=== PATIENT | male | born 1990 | race Caucasian/White ===

== ENCOUNTER 2019-11-14 16:17 | Emergency (ER) | payer SELFPAY ==
[~2019-11-14] VITALS: Ht 170.2 cm; Wt 68.0 kg
[2019-11-14 16:25] VITALS: BP 111/67
--- NOTE | 2019-11-14 16:35 | NUR ---
JOMAR THRASHER EVALUATING PT AT BEDSIDE
[2019-11-14] MEDS ORDERED: KETOROLAC 30 MG/ML VIAL IM ONE (16:40)
--- NOTE | 2019-11-14 16:40 | NUR ---
28/M C/O CONSTANT CA SINCE THURS 11/11/19. CA IS BANDLIKE AROUND THE HEAD. N/V X 1 IN AM BUT DENIES AT THIS TIME. DENIES INJURY. CA WORSE WHEN COUGHING, SNEEZING, EATING. PT APPEARS IN NAD. VSS; BED LOCKED AND LOW; BEDRAILS UP X1. HX- DENIES
[2019-11-14 17:29] VITALS: BP 111/67
== END 2019-11-14 17:29 | disposition home or self-care (01) ==
LOC: MED 16:17
DX: G44.209 Tension-type headache, unspecified, not intractable (principal); F17.210 Nicotine dependence, cigarettes, uncomplicated
CPT/HCPCS: 96372; 99283; J1885

== ENCOUNTER 2020-02-17 09:30 | Emergency (ER) | payer SELFPAY ==
[~2020-02-17] VITALS: Ht 167.6 cm; Wt 68.0 kg
[2020-02-17 09:32] VITALS: BP 123/87
--- NOTE | 2020-02-17 09:41 | NUR ---
Patient ambulated to bed 6. RN evaluating patient at bedside.
--- NOTE | 2020-02-17 09:45 | NUR ---
PT C/O GENERALIZED WEAKNESS X 2 DAYS, N/V WITH A SMALL AMOUNT OF BLOOD 2 DAYS AGO. PT STATES HE HAS NOT HAD ANYTHING TO EAT SINCE YESTERDAY APPROX 930PM AND HE DID NOT SLEEP LAST NIGHT DUR TO THE SX. DENIES COUGH, FEVER, SOB, CP, DIARRHEA, RECENT TRAVEL, OR SICK CONTACTS. PATIENT STATES PAIN OF 6/10 AT THIS TIME; VSS; PATIENT POSITIONED FOR COMFORT; HOB ELEVATED; BEDRAILS UP X1; BED DOWN. ER MD MADE AWARE OF PT STATUS. PT REPORTS HE JUST STARTED SMOKING CIGARETTES, DENIES MARIJUANA OR DRUG USES.
[2020-02-17] MEDS ORDERED: ONDANSETRON 4 MG/2 ML VIAL IVP ONE (10:20)
[2020-02-17] MEDS ORDERED: FAMOTIDINE 20 MG/2 ML VIAL IVP ONE (10:20)
[2020-02-17] MEDS ORDERED: ALUMINUM HYD/MAG/SIMETHICONE 30 ML UDC PO ONE (10:20)
[2020-02-17] MEDS ORDERED: NACL 0.9% 1,000 ML IV ONE ×2 (10:20→11:15)
[2020-02-17 10:37] LABS: BASOPHILS % (AUTO) 0.3 % (0.0-2.0); EOSINOPHILS # (AUTO) 0.1 K/uL (0-0.4); EOSINOPHILS % (AUTO) 1.5 % (0.0-4.0); HEMATOCRIT 40.7 % (36-52); HEMOGLOBIN 13.8 g/dL (12.0-18.0); LYMPHOCYTES # (AUTO) 1.3 K/uL (2.0-11.5); LYMPHOCYTES % (AUTO) 16.5 % (20.5-51.1); MEAN CORPUSCULAR HEMOGLOBIN 32 pg (27-31); MEAN CORPUSCULAR HGB CONC 34 g/dL (33-37); MEAN CORPUSCULAR VOLUME 93.1 fL (80-94); MONOCYTES # (AUTO) 0.6 K/uL (0.8-1.0); MONOCYTES % (AUTO) 7.9 % (1.7-9.3); NEUTROPHILS # (AUTO) 5.8 K/uL (1.8-7.7); NEUTROPHILS % (AUTO) 73.8 % (42.2-75.2); PLATELET COUNT (AUTO) 124 K/uL (140-450); RED BLOOD CELL COUNT(AUTO) 4.38 MIL/uL (4.20-6.10); RED CELL DISTRIBUTION WIDTH 14.6 % (11.6-13.7); WHITE BLOOD COUNT (AUTO) 7.9 K/uL (4.8-10.8)
[2020-02-17 11:01] LABS: ALBUMIN 3.3 g/dL (3.4-5.0); ANION GAP 12.4 (8-16); CARBON DIOXIDE 27.7 mmol/L (21-32); CREATININE 0.9 mg/dL (0.6-1.3); POTASSIUM 3.1 mmol/L (3.5-5.1); TOTAL BILIRUBIN 0.6 mg/dL (0.0-1.0)
[2020-02-17] MEDS ORDERED: PROCHLORPERAZINE 10 MG/2 ML VIAL IVP ONE (11:15)
--- NOTE | 2020-02-17 11:24 | NUR ---
COMPAZINE IVP ADMINISTERED ALONG WITH ANOTHER NACL BOLUS STARTED
--- NOTE | 2020-02-17 12:25 | NUR ---
pt is resting in the bed. VSS.
[2020-02-17 13:10] VITALS: BP 125/85
--- NOTE | 2020-02-17 13:10 | NUR ---
Patient discharged with v/s stable. Written and verbal after care instructions given and explained. Patient alert, oriented and verbalized understanding of instructions. Ambulatory with steady gait. All questions addressed prior to discharge. ID band removed. Patient advised to follow up with PMD. Rx of Zofran and Pepcid given. Patient educated on indication of medication including possible reaction and side effects. Opportunity to ask questions provided and answered.
== END 2020-02-17 13:10 | disposition home or self-care (01) ==
LOC: MED 09:30
DX: E86.0 Dehydration (principal); K86.1 Other chronic pancreatitis; R74.8 Abnormal levels of other serum enzymes; R11.2 Nausea with vomiting, unspecified; F17.210 Nicotine dependence, cigarettes, uncomplicated
CPT/HCPCS: 36415; 80053; 83690; 85025; 96361; 96374; 96375; 99284; J0780; J2405; J3490; J7030

== ENCOUNTER 2020-02-19 23:38 | Inpatient (IN) | payer OTHER, SELFPAY ==
[~2020-02-19] VITALS: Ht 170.2 cm; Wt 71.2 kg
[2020-02-19 23:46] VITALS: BP 108/57
--- NOTE | 2020-02-19 23:50 | NUR ---
PT VOMITTED 100CC OF BRIGHT RED BLOOD. PT VSS.
--- NOTE | 2020-02-19 23:51 | NUR ---
PT AMBULATED TO BED 6 WITH STEADY GAIT.
--- NOTE | 2020-02-19 23:55 | NUR ---
COVERING PRIMARY RN FOR LUNCH RELIEF -- RECEIVED A 29/M FROM TRIAGE WITH C/O VOMITTING BLOOD. PT REPORTS BROWN COLORED VOMIT THIS MORNING AND RECENTLY BEGAN VOMITING BRIGHT RED BLOOD OF 1 HR AGO. PT DENIES ANY PAIN. REPORTS HX OF GASTRIC ULCER. IN BED FOR MSE.
--- NOTE | 2020-02-20 00:14 | NUR ---
REPORT TO PRIMARY RN NATACHA. ALL CARE TRASNFERRED.
--- NOTE | 2020-02-20 00:31 | NUR ---
DR. KOWALSKI AT BEDSIDE EVALUTATING PT.
[2020-02-20] MEDS ORDERED: NACL 0.9% 1,000 ML IV ONE ×2 (00:35→04:45)
[2020-02-20] MEDS ORDERED: ONDANSETRON 4 MG/2 ML VIAL IVP ONE (00:35)
[2020-02-20] MEDS ORDERED: PANTOPRAZOLE 40 MG INJ VIAL IVP ONE (00:35)
--- NOTE | 2020-02-20 00:42 | NUR ---
PT HAD ONE EPISODE OF BLOOD VOMITTUS.
--- NOTE | 2020-02-20 00:45 | NUR ---
PT MEDICATED WITH ZOFRAN IVP FOR EPISODE OF VOMITTING.
--- NOTE | 2020-02-20 00:50 | NUR ---
BLOOD DRAWN AND TAKEN TO LAB.
[2020-02-20 00:59] LABS: BASOPHILS % (AUTO) 0.4 % (0.0-2.0); EOSINOPHILS # (AUTO) 0.3 K/uL (0-0.4); EOSINOPHILS % (AUTO) 4.5 % (0.0-4.0); HEMATOCRIT 32.5 % (36-52); LYMPHOCYTES # (AUTO) 1.4 K/uL (2.0-11.5); LYMPHOCYTES % (AUTO) 23.9 % (20.5-51.1); MEAN CORPUSCULAR HEMOGLOBIN 32 pg (27-31); MEAN CORPUSCULAR HGB CONC 34 g/dL (33-37); MEAN CORPUSCULAR VOLUME 93.6 fL (80-94); MONOCYTES # (AUTO) 0.8 K/uL (0.8-1.0); MONOCYTES % (AUTO) 13.9 % (1.7-9.3); NEUTROPHILS # (AUTO) 3.5 K/uL (1.8-7.7); NEUTROPHILS % (AUTO) 57.3 % (42.2-75.2); PLATELET COUNT (AUTO) 143 K/uL (140-450); RED BLOOD CELL COUNT(AUTO) 3.48 MIL/uL (4.20-6.10); RED CELL DISTRIBUTION WIDTH 14.8 % (11.6-13.7)
[2020-02-20 01:16] LABS: ALBUMIN 2.8 g/dL (3.4-5.0); ANION GAP 7.9 (8-16); CARBON DIOXIDE 32.6 mmol/L (21-32); CREATININE 0.8 mg/dL (0.6-1.3); POTASSIUM 3.5 mmol/L (3.5-5.1); TOTAL BILIRUBIN 0.5 mg/dL (0.0-1.0)
--- NOTE | 2020-02-20 01:28 | NUR ---
PT REPORTS DECREASED FEELINGS OF NAUSEA. WILL CONTINUE TO MONITOR.
[2020-02-20] MEDS ORDERED: MORPHINE SULFATE 2 MG/ML SYR IVP PRN (02:00)
[2020-02-20] MEDS ORDERED: LORazepam 2 MG/ML VIAL IM/IVP PRN (02:00)
[2020-02-20] MEDS ORDERED: ONDANSETRON 4 MG/2 ML VIAL IM/IVP PRN (02:00)
[2020-02-20] MEDS ORDERED: ZOLPIDEM 5 MG TAB PO PRN (02:00)
[2020-02-20] MEDS ORDERED: ACETAMINOPHEN 325 MG TAB PO PRN (02:00)
[2020-02-20] MEDS ORDERED: HYDROcodone/APAP 5/325 MG 1 TAB TAB PO PRN (02:00)
[2020-02-20] MEDS ORDERED: DOCUSATE SODIUM 100 MG GELCAP PO PRN (02:00)
[2020-02-20 02:20] VITALS: BP 102/67
--- NOTE | 2020-02-20 02:20 | NUR ---
Patient will be admitted to care of DR. AKBAR. Admited to [facility]. Will go to room 119B. Belongings list completed. Report to REMY DANGELO. TRANSFER OF CARE AT THIS TIME.
--- NOTE | 2020-02-20 02:20 | NUR ---
PATIENT RECEIVED FROM ER IN STABLE CONDITION VIA [facility] FOR CONTINUITY OF CARE. AAOX4. RESPIRATIONS EVEN, UNLABORED. SKIN WARM, DRY. SKIN ASSESSMENT COMPLETED. IV SITE NOTED TO RIGHT AC 20G, PATENT/INTACT. NO C/O PAIN AT THIS TIME. BOWEL SOUNDS ACTIVE X4 QUADRANTS. NO TENDERNESS NOTED AT THIS TIME. PATIENT IS CONTINENT OF B/B. AMBULATES WELL. PATIENT ORIENTED TO ROOM/STAFF AND CALL LIGHT. MRSA SCREEN COMPLETED. CALL LIGHT WITHIN REACH. WILL CONTINUE TO MONITOR.
[2020-02-20 02:29] LABS: CHOL/HDL RATIO 2.5 (1-4.5); FREE T4 (FREE THYROXINE) 1.03 ng/dL (0.76-1.46); MAGNESIUM 1.9 mg/dL (1.8-2.4); PHOSPHORUS 4.3 mg/dL (2.5-4.9); THYROID STIMULATING HORMONE 0.97 uIU/mL (0.34-3.74)
[2020-02-20] MEDS: NACL 0.9% 1,000 ML IV SCH ×3 (02:47→21:57)
[2020-02-20 04:00] VITALS: BP 84/45
--- NOTE | 2020-02-20 04:41 | NUR ---
PATIENT ASLEEP. NO C/O PAIN. CALL LIGHT WITHIN REACH. WILL CONTINUE TO MONITOR.
--- NOTE | 2020-02-20 05:10 | NUR ---
NOTIFIED DR. JOHNSON REGARDING LOW BP 84/45 WITH NEW ORDER OF 1L NS BOLUS. RECHECKED BLOOD PRESSURE AT 90/48. MD AWARE. PATIENT IS ASYMPTOMATIC. NO DIZZINESS NOTED. CALL LIGHT WITHIN REACH. WILL CONTINUE TO MONITOR.
--- NOTE | 2020-02-20 06:19 | NUR ---
PATIENT IN STABLE CONDITION. NO C/O PAIN. NO S/S ACUTE DISTRESS. CALL LIGHT WITHIN REACH. WILL CONTINUE TO MONITOR.
--- NOTE | 2020-02-20 06:48 | NUR ---
PATIENT HAS BEEN SCREENED AND CATEGORIZED HIGH NUTRITION RISK. PATIENT WILL BE SEEN WITHIN 1-2 DAYS OF ADMISSION. 02/21/20-02/22/20 GIGI HEARN MS, RDN
[2020-02-20 07:00] LABS: BASOPHILS % (AUTO) 0.6 % (0.0-2.0); EOSINOPHILS # (AUTO) 0.2 K/uL (0-0.4); EOSINOPHILS % (AUTO) 4.1 % (0.0-4.0); HEMATOCRIT 26.3 % (36-52); HEMOGLOBIN 8.8 g/dL (12.0-18.0); LYMPHOCYTES # (AUTO) 1.7 K/uL (2.0-11.5); LYMPHOCYTES % (AUTO) 33.7 % (20.5-51.1); MEAN CORPUSCULAR HEMOGLOBIN 32 pg (27-31); MEAN CORPUSCULAR HGB CONC 34 g/dL (33-37); MEAN CORPUSCULAR VOLUME 95.7 fL (80-94); MONOCYTES # (AUTO) 0.5 K/uL (0.8-1.0); MONOCYTES % (AUTO) 9.9 % (1.7-9.3); NEUTROPHILS # (AUTO) 2.6 K/uL (1.8-7.7); NEUTROPHILS % (AUTO) 51.7 % (42.2-75.2); PLATELET COUNT (AUTO) 119 K/uL (140-450); RED BLOOD CELL COUNT(AUTO) 2.75 MIL/uL (4.20-6.10); RED CELL DISTRIBUTION WIDTH 14.8 % (11.6-13.7)
[2020-02-20 07:17] LABS: ANION GAP 8.7 (8-16); CARBON DIOXIDE 30.7 mmol/L (21-32); CREATININE 0.8 mg/dL (0.6-1.3); POTASSIUM 3.4 mmol/L (3.5-5.1)
--- NOTE | 2020-02-20 07:28 | NUR ---
PATIENT RECEIVED FROM [facility] FOR[facility]ER RN FOR CONTINUITY OF CARE. PT IS AAOX4. RESPIRATIONS EVEN, UNLABORED. SKIN WARM, DRY. SKIN ASSESSMENT COMPLETED. IV SITE NOTED TO RIGHT AC 20G, PATENT/INTACT. NO C/O PAIN AT THIS TIME. BOWEL SOUNDS ACTIVE X4 QUADRANTS. NO TENDERNESS NOTED AT THIS TIME. PATIENT IS CONTINENT OF B/B. AMBULATES WELL. PATIENT ORIENTED TO ROOM/STAFF AND CALL LIGHT. CALL LIGHT WITHIN REACH. WILL MONITOR PT CLOSELY THROUGHOUT THE SHIFT.
[2020-02-20 07:51] LABS: APPEARANCE,URINE CLEAR (CLEAR); BILIRUBIN,URINE NEGATIVE (NEGATIVE); BLOOD, URINE NEGATIVE (NEGATIVE); COLOR,URINE YELLOW (YELLOW); LEUKOCYTE ESTERASE ,URINE NEGATIVE (NEGATIVE); NITRITE, URINE NEGATIVE (NEGATIVE); UGLUCOSE NEGATIVE (NEGATIVE)
[2020-02-20 08:00] VITALS: BP 98/54
[2020-02-20 08:07] LABS: BARBITURATE, URINE NEGATIVE ng/ml (NEG <=200); BENZODIAZEPINE, URINE NEGATIVE ng/mL (NEG <=200); CANNABINOID, URINE NEGATIVE ng/mL (NEG <=50); COCAINE, URINE NEGATIVE ng/mL (NEG <=300); OPIATE, URINE NEGATIVE ng/mL (NEG <=2000); PHENCYCLIDINE SCREEN,URINE NEGATIVE ng/mL (NEG <=25)
[2020-02-20] MEDS ORDERED: PANTOPRAZOLE 40 MG INJ VIAL IVP SCH (09:00)
[2020-02-20] MEDS: PANTOPRAZOLE 40 MG INJ VIAL IVP SCH ×2 (09:12→20:26)
[2020-02-20] MEDS ORDERED: POTASSIUM CHLORIDE 10 MEQ TABER PO SCH (10:15)
--- NOTE | 2020-02-20 10:52 | NUR ---
ADMINISTERED KDUR TO PT DUE TO K BEING 3.4. PT TOLERATED WELL ALL NEEDS MET.
[2020-02-20 12:00] VITALS: BP 101/56
--- NOTE | 2020-02-20 13:54 | NUR ---
PT ASLEEP. ALL NEEDS MET.
--- NOTE | 2020-02-20 15:20 | NUR ---
PT RESTING IN BED. NO PAIN REPORTED. WILL CONTINUE TO ROUND ON PT.
[2020-02-20 16:00] VITALS: BP 106/61
[2020-02-20] MEDS: METOCLOPRAMIDE 10 MG TAB PO SCH (17:13)
--- NOTE | 2020-02-20 19:53 | NUR ---
RECEIVED REPORT FROM DAY SHIFT NURSE. PT IN BED RESTING. AWAKE, ALERT, ORIENTED. PT ABLE TO MAKE NEEDS KNOWN. RESPIRATIONS EVEN AND UNLABORED TO RA. SKIN IS WARM AND DRY. ABDOMEN IS SOFT AND NON-TENDER. DENIES ANY PAIN OR DISCOMFORT AT THIS TIME. IV ACCESS ON R AC G 20 PATENT AND INTACT. IVF INFUSING WELL. PLAN OF CARE DISCUSSED. PT VERBALIZED UNDERSTANDING. NO REQUESTS MADE AT THIS TIME. CALL LIGHT WITHIN REACH. WILL CONTINUE TO MONITOR.
--- NOTE | 2020-02-20 19:53 | NUR ---
ENDORSED PT TO NIGHTSHIFT RN FOR CONTINUITY OF CARE. PT IN STABLE CONDITION AT THIS TIME.
[2020-02-20 20:00] VITALS: BP 94/57
--- NOTE | 2020-02-20 20:36 | NUR ---
VITAL SIGNS TAKEN. SCHEDULED MEDS GIVEN ORDERED. OCCULT BLOOD SAMPLE OBTAINED. PT DENIES ANY PAIN OR DISCOMFORT AT THIS TIME. PT KEPT SAFE AND COMFORTABLE. WILL CONTINUE TO MONITOR.
--- NOTE | 2020-02-20 22:20 | NUR ---
PT ASLEEP. NO S/SX OF DISR=T
--- NOTE | 2020-02-20 22:20 | NUR ---
PT ASLEEP. NO S/SX OF DISTRESS NOTED. PT KEPT COMFORTABLE. CALL LIGHT WITHIN REACH. WILL CONTINUE TO MONITOR.
[2020-02-21] VITALS: BP 93/45
--- NOTE | 2020-02-21 00:15 | NUR ---
VITAL SIGNS WITHIN NORMAL LIMITS. NO COMPLAINS OF THIS TIME. REMINDED ABOUT NPO STATUS. PATIENT VERBALIZED UNDERSTANDING. PT WENT BACK TO SLEEP. SAFETY MEASURES IN PLACE. WILL CONTINUE TO MONITOR.
[2020-02-21] MEDS: DEXT 5% / NACL 0.9% 500 ML IV SCH ×3 (01:51→12:30)
--- NOTE | 2020-02-21 01:51 | NUR ---
IVF CHANGED TO D5NS 500ML TO RUN AT 100 MLS/HRS ORDERED. WILL CONTINUE TO MONITOR.
[2020-02-21 04:00] VITALS: BP 94/52
--- NOTE | 2020-02-21 04:10 | NUR ---
PT RESTING IN BED. VS WITHIN NORMAL LIMITS. NO COMPLAINS MADE AT THIS TIME. NO REQUESTS MADE WELL. KEPT ON NPO STATUS. PT KEPT COMFORTABLE. CALL LIGHT WITHIN REACH. WILL CONTINUE TO MONITOR.
[2020-02-21] MEDS: METOCLOPRAMIDE 10 MG TAB PO SCH ×2 (06:32→12:32)
--- NOTE | 2020-02-21 07:17 | NUR ---
GAVE REPORT TO DAY SHIFT NURSE FOR CONTINUITY OF CARE. PT IN STABLE CONDITION.
--- NOTE | 2020-02-21 07:18 | NUR ---
RECEIVED REPORT FROM APPLICATIONS INTERN NURSE, FOR CONTINUITY OF CARE. PT IS SITTING UP IN BED, AAOX4. RESPIRATIONS ARE EVEN AND UNLABORED, BREATHING TO RA. RAC 20G IV, IS PATENT AND INTACT, FLUIDS RUNNING PER ORDERS. REVIEWED PLAN OF CARE WITH PATIENT. TELE MONITOR ATTACHED. SAFETY MEASURES IN PLACE; CALL LIGHT WITHIN REACH, BED IN LOW POSITION. WILL CONTINUE TO MONITOR.
[2020-02-21 07:22] LABS: EOSINOPHILS # (AUTO) 0.2 K/uL (0-0.4); EOSINOPHILS % (AUTO) 5.9 % (0.0-4.0); HEMATOCRIT 27.5 % (36-52); HEMOGLOBIN 9.3 g/dL (12.0-18.0); LYMPHOCYTES # (AUTO) 1.3 K/uL (2.0-11.5); LYMPHOCYTES % (AUTO) 32.2 % (20.5-51.1); MEAN CORPUSCULAR HEMOGLOBIN 33 pg (27-31); MEAN CORPUSCULAR HGB CONC 34 g/dL (33-37); MEAN CORPUSCULAR VOLUME 96.7 fL (80-94); MONOCYTES # (AUTO) 0.4 K/uL (0.8-1.0); MONOCYTES % (AUTO) 10.7 % (1.7-9.3); NEUTROPHILS % (AUTO) 50.2 % (42.2-75.2); PLATELET COUNT (AUTO) 142 K/uL (140-450); RED BLOOD CELL COUNT(AUTO) 2.85 MIL/uL (4.20-6.10); RED CELL DISTRIBUTION WIDTH 14.5 % (11.6-13.7); WHITE BLOOD COUNT (AUTO) 3.9 K/uL (4.8-10.8)
[2020-02-21 07:32] LABS: ANION GAP 10.4 (8-16); CARBON DIOXIDE 27.4 mmol/L (21-32); CREATININE 0.7 mg/dL (0.6-1.3); POTASSIUM 3.8 mmol/L (3.5-5.1)
[2020-02-21 07:37] LABS: MAGNESIUM 1.8 mg/dL (1.8-2.4); PHOSPHORUS 3.1 mg/dL (2.5-4.9)
[2020-02-21] MEDS: PANTOPRAZOLE 40 MG INJ VIAL IVP SCH (09:43)
--- NOTE | 2020-02-21 09:44 | NUR ---
SCHEDULED PROTONIX GIVEN. MEDICATION EDUCATION PROVIDED. NO DISTRESS NOTED. SAFETY MEASURES IN PLACE. WILL CONTINUE TO MONITOR.
--- NOTE | 2020-02-21 11:29 | NUR ---
MANAGER RELOCATION NOTE: Basic Screen: Yes High Risk DC Screen No Re-Admission: Increased Symptoms Name: LISANDRA Kowalski Relationship: SISTER Pre-Admission Living Arrangements: Lives with Other Prior ADL Independent Current Home Health Name/Tel: N/A Current DME/02 Name/Tel: N/A Current Hospice Name/Tel: N/A Current Dialysis Name/Tel: N/A Healthcare Decision Maker: Patient Advance Directive No Physician Orders for Life Sustaining Treatment Form No Information Taught: Community Resources Person Taught: Patient Factors Affecting Learning: None Participation Level: Refused Discipline: Case Mgt/Social Svcs Tentative Discharge Plan/Destination: No Needs Identified Will require assistance post discharge: No Referred to Chief Marketing Officer: No Tentative Discharge Plan Summary: PATIENT IS A 29-YEAR-OLD MALE ADMITTED FOR HEMATEMESIS. PATIENT HSAS PMHX OF GASTRIC ULCERS. PATIENT WAS ADMITTED FROM HOME WHERE HE LIVES WITH HIS FATHER. SW MET WITH PATIENT AT BEDSIDE TO VERIFY DEMOGRAPHICS. PATIENT REQUESTED TO CHANGE EMERGENCY CONTACT TO LISANDRA QUINTANILLAO - [facility] - [phone]. PATIENT REPORTS NO HISTORY OF MENTAL HEALTH BUT REPORTS SUBSTANCE ABUSE HISTORY OF ALCOHOLISM. SW OFFERED SUBSTANCE ABUSE RESOURCES BUT PATIENT REFUSED. PATIENT STATED HE STOPPED DRINKING 1 MONTH AGO. PATIENT STATED HE WAS DRINKING 6 BEERS A DAY. TENTATIVE DISCHARGE PLAN IS FOR PATIENT TO RETURN HOME. NO FURTHER NEEDS IDENTIFIED. Signature: DANIEL COON Date: February 21, 2020 Time: 11:28
--- NOTE | 2020-02-21 11:42 | NUR ---
DC PLANNIN YRS OLD MALE PATIENT WAS ADMITTED FROM HOME WITH A DX OF HEMATEMESIS, PT HAS A HX OF GASTRIC ULCER , CHRONIC PANCREATITIS WITH TRANSAMINITIS LIKELY DUE TO ALCOHOL ABUSE DISORDER. LIPASE LEVEL 424 . CXR NO ACUTE INTRATHORACIC ABNORMALITY . ADMINISTERED IVF , DVT PROPHYLAXIS. PRINCIPAL SECRETARY TO [facility] FOR ALCOHOL ABUSE, CONSULTED WITH GI DR HAMMOND FOR POSSIBLE EGD. DC PLAN TO GO HOME WHEN STABLE CM TO FOLLOW.
--- NOTE | 2020-02-21 12:33 | NUR ---
IV FLUIDS HUNG, AND RUNNING PER ORDERS. SCHEDULED REGLAN GIVEN. PT TOLERATED PO MEDICATION WELL. NO DISTRESS NOTED. SAFETY MEASURES IN PLACE. WILL CONTINUE TO MONITOR.
[2020-02-21] MEDS ORDERED: fentaNYL 0.05 MG/ML VIAL ONE (12:38)
[2020-02-21] MEDS ORDERED: diphenhydrAMINE 50 MG/ML VIAL ONE (12:38)
[2020-02-21] MEDS ORDERED: MIDAZOLAM 2 MG/2 ML VIAL ONE ×2 (12:38)
[2020-02-21] MEDS ORDERED: fentaNYL 0.05 MG/ML VIAL IVP ONE (13:45)
[2020-02-21] MEDS ORDERED: MIDAZOLAM 2 MG/2 ML VIAL IVP ONE (13:45)
[2020-02-21] MEDS ORDERED: DEXT 5% /NACL 0.9% 1,000 ML IV SCH (13:47)
--- NOTE | 2020-02-21 13:52 | NUR ---
02/21/20 RD INITIAL ASSESSMENT COMPLETED PLEASE REFER TO NUTRITION ASSESSMENT UNDER CARE ACTIVITY FOR ESTIMATED NUTRITIONAL NEEDS. 1. CONTINUE NPO MEDICALLY NECESSARY 2. IF/WHEN PT IS MEDICALLY STABLE CONSIDER ADVANCING TO REGULAR DIET 3. RD TO FOLLOW-UP 3-5 DAYS, MODERATE RISK SHERRY ROUSE, RD
[2020-02-21] MEDS ORDERED: OMEP40EC24 PO (14:59)
[2020-02-21] MEDS ORDERED: METO-485 PO (14:59)
[2020-02-21] MEDS ORDERED: DSS/1TAB3 PO (15:40)
--- NOTE | 2020-02-21 16:15 | NUR ---
DISCHARGE INSTRUCTIONS GIVEN AND EXPLAINED, WITH PT VERBALIZING UNDERSTANDING. ALL DISCHARGE PAPERWORK SIGNED. ARM BANDS, TELE MONITOR, AND IV REMOVED, WITH CATHETER INTACT. PT'S FAMILY MEMBERS ARE WAITING TO TAKE THE PT HOME. PT IS AMBULATORY AND WAS ESCORTED TO THE LOBBY. ALL OF THE PT'S BELONGINGS IN HIS POSSESSION, ALONG WITH DISCHARGE PACKET. PT IS IN STABLE CONDITION.
[2020-02-21] MEDS ORDERED: FERROUS SULFATE 325 MG TABEC PO SCH (17:00)
== END 2020-02-21 16:20 | disposition home or self-care (01) | DRG 377 ==
LOC: MED 23:38 → MTU 02-20 01:57
PROVIDERS: ADMIT General Practice; ATTEND General Practice
PROC: 0DB68ZX Excision of Stomach, Via Natural or Artificial Opening Endoscopic, Diagnostic (ICD-10-PCS; 2020-02-21)
PROC: 0DB48ZX Excision of Esophagogastric Junction, Via Natural or Artificial Opening Endoscopic, Diagnostic (ICD-10-PCS; principal; 2020-02-21 12:30)
DX: K25.4 Chronic or unspecified gastric ulcer with hemorrhage (principal); E43 Unspecified severe protein-calorie malnutrition; K86.1 Other chronic pancreatitis; F10.10 Alcohol abuse, uncomplicated; F17.210 Nicotine dependence, cigarettes, uncomplicated; D64.9 Anemia, unspecified; K21.9 Gastro-esophageal reflux disease without esophagitis; K44.9 Diaphragmatic hernia without obstruction or gangrene; K22.70 Barrett's esophagus without dysplasia; Z87.11 Personal history of peptic ulcer disease; Z56.0 Unemployment, unspecified; R74.0 Nonspecific elevation of levels of transaminase and lactic acid dehydrogenase [LDH]; Z68.24 Body mass index [BMI] 24.0-24.9, adult
CPT/HCPCS: 36415; 71045; 76700; 80048; 80053; 80305; 81003; 82150; 82272; 83036; 83690; 83735; 83880; 84100; 84439; 84443; 84484; 85025; 85610; 85730; 86677; 87081; 96361; 96374; 96375; 99285; C9113; J1200; J2250; J2405; J3010; J7030; J7042; J8597; Q0092

== ENCOUNTER 2020-05-22 00:10 | Emergency (ER) | payer MEDICAID, OTHER, SELFPAY ==
[~2020-05-22] VITALS: Ht 177.8 cm; Wt 79.4 kg
[~2020-05-22 00:10] MED LIST: DSS/1TAB3 PO; METO-485 PO; OMEP40EC24 PO
--- NOTE | 2020-05-22 00:22 | NUR ---
PT TAKEN TO BED 6
[2020-05-22] MEDS ORDERED: ONDANSETRON 4 MG/2 ML VIAL IVP ONE ×2 (00:25→02:50)
[2020-05-22] MEDS ORDERED: NACL 0.9% 1,000 ML IV ONE ×2 (00:25→04:20)
[2020-05-22 00:35] VITALS: BP 106/73
[2020-05-22 00:42] LABS: BASOPHILS % (AUTO) 0.6 % (0.0-2.0); EOSINOPHILS % (AUTO) 0.2 % (0.0-4.0); HEMATOCRIT 43.2 % (36-52); HEMOGLOBIN 14.1 g/dL (12.0-18.0); LYMPHOCYTES # (AUTO) 2.3 K/uL (2.0-11.5); LYMPHOCYTES % (AUTO) 33.3 % (20.5-51.1); MEAN CORPUSCULAR HEMOGLOBIN 26 pg (27-31); MEAN CORPUSCULAR HGB CONC 33 g/dL (33-37); MEAN CORPUSCULAR VOLUME 79.7 fL (80-94); MONOCYTES # (AUTO) 0.3 K/uL (0.8-1.0); MONOCYTES % (AUTO) 4.7 % (1.7-9.3); NEUTROPHILS # (AUTO) 4.2 K/uL (1.8-7.7); NEUTROPHILS % (AUTO) 61.2 % (42.2-75.2); PLATELET COUNT (AUTO) 383 K/uL (140-450); RED BLOOD CELL COUNT(AUTO) 5.43 MIL/uL (4.20-6.10); WHITE BLOOD COUNT (AUTO) 6.8 K/uL (4.8-10.8)
--- NOTE | 2020-05-22 00:50 | NUR ---
29 Y/O M PRESENTS TO ED C/O GENERALIZED WEAKNESS, BODY SHAKES, N/V AFTER DRINKING A BOTTLE OF WINE YESTERDAY. PT DENIES ANY ALCOHOL AND DRUG USE. PT PALE COOL AND DRY TO TOUCH. PT AAOX4. AIRWAY INTACT. PT APPEARS TO BE SHAKING UNCONTROLLABLY. PT TACHYCARDIC. PT ATTACHED TO BEDSIDE MONITOR. BED LOCKED AND IN LOWEST POSITION, SIDE RAIL UP X2. WILL CONTINUE TO MONITOR. MHX: DENIES NKA
[2020-05-22 00:53] LABS: RED CELL DISTRIBUTION WIDTH 22.2 % (11.6-13.7)
[2020-05-22 00:57] LABS: ALBUMIN 4.2 g/dL (3.4-5.0); ANION GAP 19.3 (8-16); CARBON DIOXIDE 30.5 mmol/L (21-32); CREATININE 1.1 mg/dL (0.6-1.3); TOTAL BILIRUBIN 0.5 mg/dL (0.0-1.0)
[2020-05-22 01:01] LABS: POTASSIUM 2.8 mmol/L (3.5-5.1)
[2020-05-22] MEDS ORDERED: POTASSIUM CHLORIDE 10 MEQ TABER PO ONE (01:05)
[2020-05-22] MEDS ORDERED: KCL 20 MEQ/WATER INJ PREMIX 100 ML IV ONE (01:05)
--- NOTE | 2020-05-22 01:43 | NUR ---
UA OBTAINED AND WALKED OVER TO LAB.
[2020-05-22 01:48] LABS: APPEARANCE,URINE CLEAR (CLEAR); BILIRUBIN,URINE NEGATIVE (NEGATIVE); BLOOD, URINE TRACE-I (NEGATIVE); COLOR,URINE YELLOW (YELLOW); LEUKOCYTE ESTERASE ,URINE NEGATIVE (NEGATIVE); NITRITE, URINE NEGATIVE (NEGATIVE); PH,URINE 6.5 (5.0-9.0); UGLUCOSE NEGATIVE (NEGATIVE)
[2020-05-22 02:00] LABS: BARBITURATE, URINE NEGATIVE ng/ml (NEG <=200); BENZODIAZEPINE, URINE NEGATIVE ng/mL (NEG <=200); CANNABINOID, URINE NEGATIVE ng/mL (NEG <=50); COCAINE, URINE NEGATIVE ng/mL (NEG <=300); OPIATE, URINE NEGATIVE ng/mL (NEG <=2000); PHENCYCLIDINE SCREEN,URINE NEGATIVE ng/mL (NEG <=25)
[2020-05-22 02:01] LABS: RBC,URINE 0-5 /HPF (0-5); WBC,URINE 0-5 /HPF (0-5)
--- NOTE | 2020-05-22 04:13 | NUR ---
PT IN BED, KEEPS ASKING FOR WATER, WATER GIVEN BUT PT THREW IT ALL UP. MEDICATED PT WITH ZOFRAN PER MD ORDER. WILL CONTINUE TO MONITOR.
[2020-05-22 05:26] VITALS: BP 109/90
--- NOTE | 2020-05-22 05:26 | NUR ---
Patient discharged with v/s stable. Written and verbal after care instructions given and explained. Patient verbalized understanding. Ambulatory with steady gait. All questions addressed prior to discharge. Advised to follow up with PMD.
== END 2020-05-22 05:26 | disposition home or self-care (01) ==
LOC: MED 00:19
DX: F10.129 Alcohol abuse with intoxication, unspecified (principal); R00.0 Tachycardia, unspecified; E87.6 Hypokalemia; E78.41 Elevated Lipoprotein(a); Y90.8 Blood alcohol level of 240 mg/100 ml or more
CPT/HCPCS: 36415; 80053; 80305; 81001; 83690; 85025; 93005; 96361; 96365; 96375; 96376; 99284; G0482; J2405; J3480; J7030

== ENCOUNTER 2020-07-15 12:55 | Emergency (ER) | payer SELFPAY ==
[~2020-07-15] VITALS: Ht 167.6 cm; Wt 66.3 kg
[2020-07-15 12:58] VITALS: BP 121/85
[2020-07-15] MEDS ORDERED: NACL 0.9% 1,000 ML IV ONE (13:35)
[2020-07-15 14:06] LABS: BASOPHILS % (AUTO) 0.7 % (0.0-2.0); EOSINOPHILS % (AUTO) 1.3 % (0.0-4.0); HEMATOCRIT 38.8 % (36-52); HEMOGLOBIN 12.6 g/dL (12.0-18.0); LYMPHOCYTES # (AUTO) 0.7 K/uL (2.0-11.5); LYMPHOCYTES % (AUTO) 25.9 % (20.5-51.1); MEAN CORPUSCULAR HEMOGLOBIN 28 pg (27-31); MEAN CORPUSCULAR HGB CONC 32 g/dL (33-37); MEAN CORPUSCULAR VOLUME 85.7 fL (80-94); MONOCYTES # (AUTO) 0.2 K/uL (0.8-1.0); MONOCYTES % (AUTO) 6.2 % (1.7-9.3); NEUTROPHILS # (AUTO) 1.9 K/uL (1.8-7.7); NEUTROPHILS % (AUTO) 65.9 % (42.2-75.2); PLATELET COUNT (AUTO) 89 K/uL (140-450); RED BLOOD CELL COUNT(AUTO) 4.52 MIL/uL (4.20-6.10); RED CELL DISTRIBUTION WIDTH 19.6 % (11.6-13.7); WHITE BLOOD COUNT (AUTO) 2.8 K/uL (4.8-10.8)
[2020-07-15 14:24] LABS: ALBUMIN 2.6 g/dL (3.4-5.0); ANION GAP 9.6 (8-16); CARBON DIOXIDE 30.8 mmol/L (21-32); CREATININE 1.3 mg/dL (0.6-1.3); TOTAL BILIRUBIN 3.9 mg/dL (0.0-1.0)
[2020-07-15 14:38] LABS: POTASSIUM 2.4 mmol/L (3.5-5.1)
[2020-07-15] MEDS ORDERED: KCL 20 MEQ/WATER INJ PREMIX 100 ML IV ONE (14:40)
[2020-07-15] MEDS ORDERED: POTASSIUM CHLORIDE 10 MEQ TABER PO ONE (14:40)
[2020-07-15 16:47] VITALS: BP 118/75
== END 2020-07-15 16:45 | disposition home or self-care (01) ==
LOC: MED 12:55
DX: E87.6 Hypokalemia (principal); E80.6 Other disorders of bilirubin metabolism; R07.9 Chest pain, unspecified; R74.01 Elevation of levels of liver transaminase levels; K85.90 Acute pancreatitis without necrosis or infection, unspecified; Z79.899 Other long term (current) drug therapy
CPT/HCPCS: 36415; 71045; 80053; 82140; 83690; 84484; 85025; 93005; 96361; 96365; 96366; 99291; J3480; Q0092; J7030

== ENCOUNTER 2020-11-11 11:31 | Emergency (ER) | payer MEDICAID, SELFPAY ==
[~2020-11-11] VITALS: Ht 170.2 cm; Wt 58.1 kg
[~2020-11-11 11:31] MED LIST changes: -DSS/1TAB3 PO; -METO-485 PO; +OMEP40EC14 PO; -OMEP40EC24 PO
[2020-11-11 11:40] VITALS: BP 131/79
[2020-11-11] MEDS ORDERED: FAMOTIDINE 20 MG TAB PO ONE (12:10)
[2020-11-11 12:43] LABS: BASOPHILS % (AUTO) 0.6 % (0.0-2.0); EOSINOPHILS # (AUTO) 0.1 K/uL (0-0.4); EOSINOPHILS % (AUTO) 1.4 % (0.0-4.0); HEMATOCRIT 35.8 % (36-52); HEMOGLOBIN 11.8 g/dL (12.0-18.0); LYMPHOCYTES # (AUTO) 1.4 K/uL (2.0-11.5); LYMPHOCYTES % (AUTO) 23.9 % (20.5-51.1); MEAN CORPUSCULAR HEMOGLOBIN 26 pg (27-31); MEAN CORPUSCULAR HGB CONC 33 g/dL (33-37); MEAN CORPUSCULAR VOLUME 79.9 fL (80-94); MONOCYTES # (AUTO) 0.5 K/uL (0.8-1.0); MONOCYTES % (AUTO) 8.1 % (1.7-9.3); PLATELET COUNT (AUTO) 136 K/uL (140-450); RED BLOOD CELL COUNT(AUTO) 4.49 MIL/uL (4.20-6.10); RED CELL DISTRIBUTION WIDTH 19.3 % (11.6-13.7)
[2020-11-11 12:57] LABS: ALBUMIN 3.2 g/dL (3.4-5.0); ANION GAP 5.9 (8-16); CARBON DIOXIDE 37.5 mmol/L (21-32); CREATININE 0.9 mg/dL (0.6-1.3); TOTAL BILIRUBIN 0.7 mg/dL (0.0-1.0)
[2020-11-11 13:02] LABS: POTASSIUM 2.4 mmol/L (3.5-5.1)
[2020-11-11] MEDS ORDERED: POTASSIUM CHLORIDE 10 MEQ TABER PO ONE (13:10)
[2020-11-11] MEDS ORDERED: POTASSIUM CHL 20 MEQ/NACL 0.9% 1,000 ML IV ONE (13:10)
[2020-11-11] MEDS ORDERED: MAG SULF 2000 MG/WATER PREMIX 50 ML IV ONE (13:10)
[2020-11-11 16:20] VITALS: BP 108/67
== END 2020-11-11 16:20 | disposition home or self-care (01) ==
LOC: MED 11:31
DX: R07.9 Chest pain, unspecified (principal); R22.0 Localized swelling, mass and lump, head; E86.0 Dehydration; Z79.899 Other long term (current) drug therapy
CPT/HCPCS: 36415; 71045; 80053; 84484; 85025; 93005; 96365; 96366; 96368; 99285; J3475; J7030

== ENCOUNTER 2021-05-02 21:50 | Emergency (ER) | payer SELFPAY ==
[~2021-05-02] VITALS: Ht 172.7 cm; Wt 77.6 kg
[~2021-05-02 21:50] MED LIST changes: -OMEP40EC14 PO; +OMEP40EC23 PO
[2021-05-02 21:55] VITALS: BP 120/96
[2021-05-02] MEDS ORDERED: AMOXIL/CLAVULANATE 875/125 MG 1 TAB PO ONE (22:00)
[2021-05-02] MEDS ORDERED: IBUPROFEN 800 MG TAB PO ONE (22:00)
--- NOTE | 2021-05-02 22:00 | NUR ---
PATIENT AMBULATED TO LOBBY WITH STEADY GAIT. FOR RIDE RENE OSBORN CALL HO (SISTER) [phone].
[2021-05-02] MEDS ORDERED: PANT40EC PO (22:34)
[2021-05-02] MEDS ORDERED: IBUP-2218 PO (22:34)
[2021-05-02] MEDS ORDERED: AMOX-1000 PO (22:34)
[2021-05-02 23:00] VITALS: BP 118/87
--- NOTE | 2021-05-02 23:00 | NUR ---
Patient discharged with v/s stable. Written and verbal after care instructions given and explained. Patient alert, oriented and verbalized understanding of instructions. Ambulatory with steady gait. All questions addressed prior to discharge. ID band removed. Patient advised to follow up with PMD. Opportunity to ask questions provided and answered.
--- NOTE | 2021-05-03 04:30 | NUR ---
FAX TO [facility] SENT AND CONFIRMATION RECIVED @ 3559.
== END 2021-05-02 23:00 | disposition home or self-care (01) ==
LOC: MED 21:50
DX: S41.151A Open bite of right upper arm, initial encounter (principal); Z79.899 Other long term (current) drug therapy; W54.0XXA Bitten by dog, initial encounter; Y93.89 Activity, other specified; Y92.89 Other specified places as the place of occurrence of the external cause; Y99.8 Other external cause status
CPT/HCPCS: 99283

== ENCOUNTER 2021-05-27 00:42 | Inpatient (IN) | payer SELFPAY ==
[~2021-05-27] VITALS: Ht 167.6 cm; Wt 72.1 kg
[~2021-05-27 00:42] MED LIST changes: +AMOX-1000 PO; +IBUP-2218 PO; +PANT40EC PO
[2021-05-27 00:50] VITALS: BP 110/80
--- NOTE | 2021-05-27 00:52 | NUR ---
30 YO/M BIB SELF W CO VOMITING BLOOD, DIZZYNESS, WEAKNESS X1 WEEK THAT WORSENED TODAY, AND RLQ ABDOMINAL PAIN ACHE 9/10 X3O MINUTES TENDER TO TOUCH, NON RADIATING. BOWEL SOUNDS PRESENT THROUGHOUT. DENIES CHEST PAIN, SOB, DENIES FEVERS, DIARRHEA, CONSTIPATION. REPORTS THIS OCCURED BEFORE D/T HX OF ULCERS. PATIENT PRESENT W EMESIS BAD W 200CC RED VOMIT. PATIENT CONNECTED TO MONITOR W 95/46 BP, 105HR, 95 O2, RR12. ERMD MADE AWARE OF PATIENT VS. PATIENT LAYING IN BED LOCKED IN LOWEST POSITION X2 SIDERAILS UP FOR PATIENT SAFETY. WILL CONTINUR TO MONITOR. PMH:ULCERS NKA
--- NOTE | 2021-05-27 00:55 | NUR ---
PATIENT REPORTS LAST TIME DRINKING FLUIDS WAS X4 HOURS AGO AND LAST TIME EATING WAS "WAY BEFORE THAT" EXACT TIME UNKNOWN.
[2021-05-27] MEDS ORDERED: ONDANSETRON 4 MG/2 ML VIAL IVP ONE (01:25)
[2021-05-27] MEDS ORDERED: PANTOPRAZOLE 40 MG INJ VIAL IVP ONE (01:25)
[2021-05-27 01:34] LABS: BASOPHILS # (AUTO) 0.1 K/uL (0.00-0.22); BASOPHILS % (AUTO) 0.7 % (0.0-2.0); EOSINOPHILS % (AUTO) 0.1 % (0.0-4.0); HEMATOCRIT 31.4 % (36-52); HEMOGLOBIN 9.9 g/dL (12.0-18.0); LYMPHOCYTES % (AUTO) 11.3 % (20.5-51.1); MEAN CORPUSCULAR HEMOGLOBIN 22 pg (27-31); MEAN CORPUSCULAR HGB CONC 32 g/dL (33-37); MEAN CORPUSCULAR VOLUME 68.5 fL (80-94); MONOCYTES # (AUTO) 0.5 K/uL (0.8-1.0); MONOCYTES % (AUTO) 5.7 % (1.7-9.3); NEUTROPHILS % (AUTO) 82.2 % (42.2-75.2); PLATELET COUNT (AUTO) 202 K/uL (140-450); RED BLOOD CELL COUNT(AUTO) 4.58 MIL/uL (4.20-6.10); RED CELL DISTRIBUTION WIDTH 23.1 % (11.6-13.7); WHITE BLOOD COUNT (AUTO) 8.5 K/uL (4.8-10.8)
[2021-05-27] MEDS ORDERED: NACL 0.9% 1,000 ML IV ONE (01:45)
[2021-05-27 01:48] LABS: PROTHROMBIN TIME 9.6 secs (10.8-13.4)
[2021-05-27 01:49] LABS: ALBUMIN 4.5 g/dL (3.4-5.0); ANION GAP 23.4 (8-16); CARBON DIOXIDE 26.4 mmol/L (21-32); CREATININE 1.1 mg/dL (0.6-1.3); TOTAL BILIRUBIN 0.6 mg/dL (0.0-1.0)
[2021-05-27 01:51] LABS: POTASSIUM 2.8 mmol/L (3.5-5.1)
[2021-05-27] MEDS ORDERED: MORPHINE SULFATE 4 MG/ML SYR IVP ONE (01:55)
[2021-05-27] MEDS ORDERED: cefTRIAXone 1,000 MG VIAL ONE (02:03)
[2021-05-27] MEDS ORDERED: NACL 0.9% 1,000 ML IV SCH (02:45)
--- NOTE | 2021-05-27 02:50 | NUR ---
PATIENT LAYING IN BED W EYES CLOSED, BED LOCKED IN LOWEST POSITION, HOB ELEVATED, X2 SIDERAILS UP FOR PATIENT SAFETY. BREATING EVEN AND UNLABORED. CONNECTED TO MONITOR W VSS. NAD NOTED WILL CONTINUE TO MONITOR.
--- NOTE | 2021-05-27 03:15 | NUR ---
PATIENT VOMITING RED BLOOD, 200ML OF EMESIS IN EMESIS BAG.
--- NOTE | 2021-05-27 03:15 | NUR ---
PATIENT AWAKE AND REPORTS HE IS NAUSEUS, VERY THIRSTY, EXPLAINED TO PATIENT NPO STATUS. PATIENT IS VOMITING AGAIN. PATIENT REQUESTING ICE CHIPS, CONTACTED ADMIN DOCTOR IN REGARDS TO REQUEST, AND MEDICATION FOR NAUSEA, AND INREGARDS TO PATIENT POTASSIUM LEVELS OF 2.8 AND LIPASE OF 1098. AWAITING DOCTOR'S ORDERS AT THIS TIME.
--- NOTE | 2021-05-27 03:45 | NUR ---
PT TRANSFERRED TO ICU. PT ACCOMPANIED BY RT AND EMT. PT UNDER SERVICE OF DR HOLCOMB. PT GOING TO ICU BED 1. REPORT GIVEN TO JAGDEEP ALBERTO. Addendum: 05/27/21 at 0348 by KYLER WRONG PATIENT.
--- NOTE | 2021-05-27 04:17 | NUR ---
PER ERMD PATIENT TO BE KEPT NPO. NEW ORDER FOR POTASSIUM OF 40MEQ K RAZIA. NO ORDERS FOR NAUSEA MEDICATION. RE-CONTACTED ADMIN DOCTOR FOR NAUSEA MEDICATION, AWAITING ORDERS.
[2021-05-27] MEDS ORDERED: KCL 20 MEQ/WATER INJ PREMIX 200 ML IV ONE (04:20)
--- NOTE | 2021-05-27 05:05 | NUR ---
PATIENT AMBULATED TO BATHROOM W STEADY GAIT.
--- NOTE | 2021-05-27 05:44 | NUR ---
PATIENT LAYING IN BED W EYES CLOSED. BED LOCKED IN LOWEST POSITION, X2 SIDERAILS UP FOR PATIENT SAFETY, BREATHING EVEN AND UNLABORED. NAD NOTED, CONNECTED TO MONITOR W VSS. K RAZIA RUNNING AT 50ML/HR. WILL CONTINUE TO MONITOR.
--- NOTE | 2021-05-27 06:20 | NUR ---
ADMITTING DOCTOR, , HAS NOT RESPONDED TO TEXT MESSAGES IN REGARDS TO PATIENT VOMITING BLOOD. CALLED DR. HOLCOMB VIA PHONE CALL FOR ORDERS IN REGARDS TO PATIENT NAUSEA/VOMIT, NO ANSWER AT THIS TIME.
--- NOTE | 2021-05-27 06:44 | NUR ---
PATIENT VOMITED 300CC OF CLEAR FLUIDS. NO REDNESS/BLOOD NOTED. ADMIN DOCTOR MADE AWARE. NO RESPONSE AT THIS TIME.
--- NOTE | 2021-05-27 07:08 | NUR ---
REPORT GIVEN TO REMY JACOBS FOR TRANSFER OF PATIENT CARE AT THIS TIME.
--- NOTE | 2021-05-27 07:11 | NUR ---
REPORT RECIEVED FROM REMY CARVALHO. TRANSFER OF CARE RECIEVED
[2021-05-27] MEDS ORDERED: ONDANSETRON 4 MG/2 ML VIAL IVP PRN ×2 (07:15→07:20)
--- NOTE | 2021-05-27 07:40 | NUR ---
RECEIVED REPORT FROM ER NURSE ARLENE PATIENT IS AAOX4, AMBULATORY, SKIN INTACT, ON ROOM AIR, LAST BOWEL MOVEMENT 05/26/21, IV INTACT ON L;EFT AC WITH NS AT 120 AND POTASSIUM CHLORIDE AT 50 MLS/HR. PT VOMITED 300 ML CLEAR LIQUID THIS MORNING, PT VACCINATED WITH COVID 19 MODERNA.
--- NOTE | 2021-05-27 08:00 | NUR ---
PT BROUGHT TO THE UNIT VIA GURNEY AMBULATED TO THE BED AND VITAL SIGNS TAKEN BP 141/92 NJ 92 TEMP 98.7 RR 17 OXYGEN SAT 96% CHANGED PT GOWN AND HOOK TO IV NS AT 120 AND POTASIUM 20MEQ AT 50 MLS/HR. ORIENTED TO ROOM SAFETY MEASURES IN PLACE AND CALL LIGHT WITHIN REACH.WILL CONTINUE TO MONITOR
--- NOTE | 2021-05-27 08:11 | NUR ---
Patient will be admitted to care of DR. HARPLA HOLCOMB. Admited to TELE. Will go to room 105B. Belongings list completed. Report to REMY STEWART.
[2021-05-27] MEDS: PANTOPRAZOLE 40 MG INJ VIAL IVP SCH ×2 (08:34→21:00)
[2021-05-27] MEDS: POTASSIUM CHL 20 MEQ/D5-1/2NS 1,000 ML IV SCH ×2 (10:09→19:25)
--- NOTE | 2021-05-27 10:13 | NUR ---
PATIENT POTASSIUM LEVEL AT 2.9 POTASSIUM CHLORIDE 20 MEQ GIVEN INFUSING WELL.
--- NOTE | 2021-05-27 10:26 | NUR ---
MRSA SAMPLE IS COLLECTED AT 8:30 AM AND SENT IT TO THE LAB.
[2021-05-27] MEDS ORDERED: POTASSIUM CHLORIDE 10 MEQ TABER PO PRN (10:55)
[2021-05-27] MEDS ORDERED: MAG SULF 2000 MG/WATER PREMIX 50 ML IV PRN (10:55)
[2021-05-27] MEDS ORDERED: DOCUSATE SODIUM 100 MG GELCAP PO PRN (11:00)
[2021-05-27] MEDS ORDERED: ZOLPIDEM 5 MG TAB PO PRN (11:00)
[2021-05-27] MEDS ORDERED: HYDROcodone/APAP 5/325 MG 1 TAB TAB PO PRN (11:00)
[2021-05-27] MEDS ORDERED: MORPHINE SULFATE 2 MG/ML SYR IVP PRN (11:00)
[2021-05-27] MEDS ORDERED: LORazepam 2 MG/ML VIAL IM/IVP PRN (11:00)
[2021-05-27] MEDS ORDERED: ONDANSETRON 4 MG/2 ML VIAL IM/IVP PRN (11:00)
[2021-05-27] MEDS ORDERED: ACETAMINOPHEN 325 MG TAB PO PRN (11:00)
[2021-05-27] MEDS: NACL 0.9% 1,000 ML IV SCH ×2 (11:24→21:00)
[2021-05-27] MEDS: METOCLOPRAMIDE 10 MG/2 ML INJ VIAL IVP SCH ×2 (11:24→17:33)
--- NOTE | 2021-05-27 11:29 | NUR ---
ADMINISTERED SCHEDULED MEDICATION AND CHANGED IV FLUIDS RATE FROM 120 MLS/HR TO 100 MLS/HR. INFUSING WELL.WILL CONTINUE TO MONITOR.
[2021-05-27 12:19] VITALS: BP 131/92
[2021-05-27 12:35] LABS: ANION GAP 12.1 (8-16); CARBON DIOXIDE 30.4 mmol/L (21-32); CREATININE 0.8 mg/dL (0.6-1.3); POTASSIUM 3.5 mmol/L (3.5-5.1)
[2021-05-27 12:43] LABS: BASOPHILS % (AUTO) 0.6 % (0.0-2.0); EOSINOPHILS % (AUTO) 0.1 % (0.0-4.0); HEMATOCRIT 25.4 % (36-52); HEMOGLOBIN 7.8 g/dL (12.0-18.0); LYMPHOCYTES # (AUTO) 0.4 K/uL (2.0-11.5); MEAN CORPUSCULAR HEMOGLOBIN 21 pg (27-31); MEAN CORPUSCULAR HGB CONC 31 g/dL (33-37); MEAN CORPUSCULAR VOLUME 68.8 fL (80-94); MONOCYTES # (AUTO) 0.5 K/uL (0.8-1.0); NEUTROPHILS # (AUTO) 6.8 K/uL (1.8-7.7); PLATELET COUNT (AUTO) 120 K/uL (140-450); RED BLOOD CELL COUNT(AUTO) 3.69 MIL/uL (4.20-6.10); RED CELL DISTRIBUTION WIDTH 23.9 % (11.6-13.7); WHITE BLOOD COUNT (AUTO) 7.7 K/uL (4.8-10.8)
[2021-05-27 12:50] LABS: CHOL/HDL RATIO 1.6 (1-4.5); MAGNESIUM 1.4 mg/dL (1.8-2.4); PHOSPHORUS 2.2 mg/dL (2.5-4.9); THYROID STIMULATING HORMONE 0.69 uIU/mL (0.34-3.74)
--- NOTE | 2021-05-27 13:00 | NUR ---
MADE ROUNDS PATIENT IS RESTING NO DISTRESS NOTED AND FEEL MUCH BETTER.
[2021-05-27 13:01] LABS: LYMPHOCYTES % (AUTO) 5.8 % (20.5-51.1); NEUTROPHILS % (AUTO) 87.5 % (42.2-75.2)
--- NOTE | 2021-05-27 15:43 | NUR ---
PATIENT REPORTED ABDOMINAL PAIN / MEDICATED WITH MORPHINE SULFATE WILL CONTINUE TO MONITOR PT
[2021-05-27] MEDS: SODIUM FERRIC GLUCONATE 125 MG in NACL 0.9% 100 ML IV SCH (15:52)
[2021-05-27] MEDS ORDERED: LORazepam 2 MG/ML VIAL IVP PRN (15:55)
--- NOTE | 2021-05-27 15:58 | NUR ---
ADMINISTERED SCHEDULED MEDICATION INFUSSING WELL.
[2021-05-27 16:00] VITALS: BP 139/80
[2021-05-27] MEDS: FERROUS SULFATE 325 MG TABEC PO SCH (16:21)
[2021-05-27] MEDS: chlordiazePOXIDE 25 MG CAP PO SCH (16:21)
--- NOTE | 2021-05-27 16:23 | NUR ---
ADMINISTERED FERROUS SULFATE AND LIBRIUM. PATIENT FEELS BETTER AND NO EPISODE OF VOMITING.WILL CONTINUE TO MONITOR.
[2021-05-27] MEDS ORDERED: SODIUM PHOSPHATE 15 MMOLE in NACL 0.9% 250 ML IV SCH (16:30)
[2021-05-27 16:53] LABS: APPEARANCE,URINE CLEAR (CLEAR); BILIRUBIN,URINE 1+ (NEGATIVE); BLOOD, URINE NEGATIVE (NEGATIVE); COLOR,URINE YELLOW (YELLOW); LEUKOCYTE ESTERASE ,URINE NEGATIVE (NEGATIVE); NITRITE, URINE NEGATIVE (NEGATIVE); PH,URINE 8.5 (5.0-9.0); UGLUCOSE NEGATIVE (NEGATIVE)
[2021-05-27 17:14] LABS: BARBITURATE, URINE NEGATIVE ng/ml (NEG <=200); BENZODIAZEPINE, URINE NEGATIVE ng/mL (NEG <=200); CANNABINOID, URINE NEGATIVE ng/mL (NEG <=50); COCAINE, URINE NEGATIVE ng/mL (NEG <=300); OPIATE, URINE POSITIVE ng/mL (NEG <=2000); PHENCYCLIDINE SCREEN,URINE NEGATIVE ng/mL (NEG <=25)
--- NOTE | 2021-05-27 17:20 | NUR ---
ADMINISTERED SCHEDULED MEDICATION PATIENT IS RESTING, VOMITED 150 ML AND PAIN OF 4/10.
--- NOTE | 2021-05-27 17:40 | NUR ---
ADMINISTERED REGLAN SCHEDULE PATIENT FEELS BETTER.
--- NOTE | 2021-05-27 19:28 | NUR ---
ENDORSED TO NIGHT NURSE FOR CONTINUITY OF CARE. PT IS STABLE.
--- NOTE | 2021-05-27 19:29 | NUR ---
RECD. RESTING IN BED, AWAKE, A/OX4. RESPIRATION EVEN AND UNLABORED. IVPB OF SODIUM PHOSPHATE INFUSING AT 42.5 ML/HR AT THE LEFT AC G20.ABLE TO AMBULATE INDEPENDENTLY. TOLERATING CLEAR LIQUID DIET. AWARE OF PLAN EGD TOMORROW. DENIES PAIN 0/10.
[2021-05-27 20:00] VITALS: BP 114/72
[2021-05-27] MEDS: SENNA 8.6 MG TAB PO SCH (21:18)
--- NOTE | 2021-05-27 21:18 | NUR ---
WATCHING TV. SCHEDULED MEDICATIONS FOR THE NIGHT GIVEN. Addendum: 05/28/21 at 0135 by Saadia Oneill LVN CORRECTION: THIS CHARTING IS ENTERED BY SAADIA PAIZ.
[2021-05-28] VITALS: BP_SYST 121; BP_SYST 125; BP_DIAS 71; BP_DIAS 74
[2021-05-28] MEDS: METOCLOPRAMIDE 10 MG/2 ML INJ VIAL IVP SCH ×5 (00:39→21:31)
--- NOTE | 2021-05-28 00:43 | NUR ---
PATIENT RESTING IN BED COMFORTABLY. MAG LEVEL - 1.4, MAG RIDER INFUSED BY HANK ALBERTO. Addendum: 05/28/21 at 0134 by Saadia Oneill LVN CORRECTION: THIS CHARTING IS ENTERED BY SAADIA PAIZ.
[2021-05-28 04:00] VITALS: BP 121/71
--- NOTE | 2021-05-28 04:00 | NUR ---
STILL SR ON TELE MONITORING. NO COMPLAINT OF PAIN 0/10.
--- NOTE | 2021-05-28 06:00 | NUR ---
NO COMPLAINT OF ABDOMINAL PAIN DURING THE SHIFT. CONDITION REMAIN STABLE.
--- NOTE | 2021-05-28 06:54 | NUR ---
MEDICATED WITH REGLAN PER MD ORDER BY REMY LEONARDO. TOLERATED WELL.
[2021-05-28] MEDS: POTASSIUM CHL 20 MEQ/D5-1/2NS 1,000 ML IV SCH ×2 (07:00→17:57)
[2021-05-28] MEDS: NACL 0.9% 1,000 ML IV SCH (07:00)
--- NOTE | 2021-05-28 07:05 | NUR ---
RECEIVED BEDSIDE REPORT FROM NIGHTSHIFT NURSE FOR CONTINUITY OF CARE. PT IS AWAKE AND ALERT. A&OX4. PT IS ON RA WITH UNLABORED BREATHING. TELEMONITOR WITH SINUS RHYTHM. SKIN IS DRY, WARM AND INTACT. IV IS ON THE LEFT FOREARM 20 GAUGE WITH FLUIDS RUNNING. CALL LIGHT WITHIN REACH. SAFETY MEASURES ARE IN PLACE. WILL CONTINUE TO MONITOR.
--- NOTE | 2021-05-28 07:20 | NUR ---
ENDORSED TO AM NURSES FOR CONTINUITY OF CARE, PATIENT FOR EGD TODAY.
[2021-05-28 07:26] LABS: EOSINOPHILS % (AUTO) 0.7 % (0.0-4.0); HEMATOCRIT 23.2 % (36-52); HEMOGLOBIN 7.1 g/dL (12.0-18.0); LYMPHOCYTES # (AUTO) 0.4 K/uL (2.0-11.5); MONOCYTES # (AUTO) 0.3 K/uL (0.8-1.0); NEUTROPHILS # (AUTO) 4.3 K/uL (1.8-7.7)
[2021-05-28 07:37] LABS: ANION GAP 11.5 (8-16); CARBON DIOXIDE 28.4 mmol/L (21-32); CREATININE 0.7 mg/dL (0.6-1.3)
[2021-05-28 07:38] LABS: BASOPHILS % (AUTO) 0.7 % (0.0-2.0); LYMPHOCYTES % (AUTO) 8.6 % (20.5-51.1); MEAN CORPUSCULAR HEMOGLOBIN 22 pg (27-31); MEAN CORPUSCULAR HGB CONC 31 g/dL (33-37); MEAN CORPUSCULAR VOLUME 70.6 fL (80-94); MONOCYTES % (AUTO) 5.5 % (1.7-9.3); NEUTROPHILS % (AUTO) 84.5 % (42.2-75.2); PLATELET COUNT (AUTO) 93 K/uL (140-450); RED BLOOD CELL COUNT(AUTO) 3.29 MIL/uL (4.20-6.10); RED CELL DISTRIBUTION WIDTH 23.4 % (11.6-13.7); WHITE BLOOD COUNT (AUTO) 5.1 K/uL (4.8-10.8)
[2021-05-28 07:41] LABS: POTASSIUM 2.9 mmol/L (3.5-5.1)
[2021-05-28 08:00] VITALS: BP 129/70
[2021-05-28 08:02] LABS: MAGNESIUM 2.1 mg/dL (1.8-2.4)
--- NOTE | 2021-05-28 08:24 | NUR ---
MESSAGED DR. HOLCOMB TO INFORM HER OF CRITICAL LAB OF POTASSIUM 2.9. DR. HOLCOMB RESPONDED TO ORDER K RIDER 40 MEQ WITH LIDOCAINE IN ADDITION TO GIVING THE PRN KDUR 40 MEQ PO. RECHECK BMP AT 1700. ORDERS WERE PLACED. WILL ADMINISTER ONCE VERIFIED.
[2021-05-28] MEDS ORDERED: THIAMINE 100 MG TAB PO SCH (09:00)
--- NOTE | 2021-05-28 09:03 | NUR ---
PATIENT HAS BEEN SCREENED AND CATEGORIZED LOW NUTRITION RISK. PATIENT WILL BE SEEN WITHIN 7 DAYS OF ADMISSION. 06/02/[address]
[2021-05-28] MEDS ORDERED: POTASSIUM CHLORIDE 40 MEQ, LIDOCAINE MPF 1% 25 MG in NACL 0.9% 250 ML IV SCH (10:00)
[2021-05-28] MEDS: MULTIVITAMIN 1 TAB PO SCH (10:02)
[2021-05-28] MEDS: SENNA 8.6 MG TAB PO SCH ×2 (10:03→21:31)
[2021-05-28] MEDS: FOLIC ACID 1 MG TAB PO SCH (10:03)
[2021-05-28] MEDS: chlordiazePOXIDE 25 MG CAP PO SCH ×2 (10:03→12:13)
[2021-05-28] MEDS: THIAMINE 100 MG TAB PO SCH (10:04)
[2021-05-28] MEDS: FERROUS SULFATE 325 MG TABEC PO SCH ×2 (10:04→17:30)
[2021-05-28] MEDS: PANTOPRAZOLE 40 MG INJ VIAL IVP SCH ×2 (10:07→21:30)
--- NOTE | 2021-05-28 10:11 | NUR ---
K DUR 40 MEQ WAS GIVEN ALONG WITH KRIDER 40 MEQ IV ORDERED BY [address]. HOLCOMB. MEDICATION EDUCATION WAS PROVIDED AND PT VERBALIZED UNDERSTANDING. WILL CONTINUE TO MONITOR PT.
--- NOTE | 2021-05-28 11:40 | NUR ---
PT IS AWAKE AND ALERT. PT IS WATCHING TELEVISION. PT DENIES ANY PAIN. PT IS ON RA WITH UNLABORED BREATHING. PT IS STABLE. CALL LIGHT WITHIN REACH. WILL CONTINUE TO MONITOR.
[2021-05-28 12:00] VITALS: BP 122/64
--- NOTE | 2021-05-28 14:00 | NUR ---
PT IS AWAKE AND ALERT. PT IS WATCHING TELEVISION. PT ON RA WITH UNLABORED BREATHING. NO DISTRESS NOTED. PT STATED THAT HE WAS OK. WILL CONTINUE TO MONITOR.
[2021-05-28] MEDS ORDERED: SODIUM PHOSPHATE 15 MMOLE in NACL 0.9% 250 ML IV SCH (15:00)
--- NOTE | 2021-05-28 15:21 | NUR ---
TWO OR NURSES PICKED UP PT FOR EGD PROCEDURE. PT IS AWAKE AND ALERT. NO DISTRESS NOTED. PT WAS TAKEN VIA BED.
[2021-05-28] MEDS ORDERED: fentaNYL citrate 0.05 MG/ML VIAL ONE (15:24)
[2021-05-28] MEDS ORDERED: diphenhydrAMINE 50 MG/ML VIAL ONE (15:24)
[2021-05-28] MEDS ORDERED: MIDAZOLAM 5 MG/5 ML VIAL ONE (15:25)
[2021-05-28] MEDS ORDERED: fentaNYL citrate 0.05 MG/ML VIAL IVP ONE (16:35)
[2021-05-28] MEDS ORDERED: MIDAZOLAM 2 MG/2 ML VIAL IVP ONE (16:35)
--- NOTE | 2021-05-28 16:50 | NUR ---
PT IS BACK FROM THE OR FOR EGD PROCEDURE. PT IS STABLE. AWAKE AND ALERT, ANSWERING QUESTIONS APPROPRIATELY. BREATHING IS UNLABORED ON RA. WILL CONTINUE TO MONITOR.
[2021-05-28 18:05] LABS: BASOPHILS % (AUTO) 0.2 % (0.0-2.0); EOSINOPHILS # (AUTO) 0.1 K/uL (0-0.4); EOSINOPHILS % (AUTO) 1.7 % (0.0-4.0); HEMATOCRIT 23.2 % (36-52); HEMOGLOBIN 7.1 g/dL (12.0-18.0); LYMPHOCYTES # (AUTO) 0.5 K/uL (2.0-11.5); MEAN CORPUSCULAR HEMOGLOBIN 22 pg (27-31); MEAN CORPUSCULAR HGB CONC 30 g/dL (33-37); MEAN CORPUSCULAR VOLUME 71.9 fL (80-94); MONOCYTES # (AUTO) 0.2 K/uL (0.8-1.0); MONOCYTES % (AUTO) 4.5 % (1.7-9.3); NEUTROPHILS # (AUTO) 4.5 K/uL (1.8-7.7); NEUTROPHILS % (AUTO) 84.6 % (42.2-75.2); PLATELET COUNT (AUTO) 98 K/uL (140-450); RED BLOOD CELL COUNT(AUTO) 3.23 MIL/uL (4.20-6.10); WHITE BLOOD COUNT (AUTO) 5.3 K/uL (4.8-10.8)
[2021-05-28 18:27] LABS: ANION GAP 11.1 (8-16); CARBON DIOXIDE 23.7 mmol/L (21-32); CREATININE 0.6 mg/dL (0.6-1.3); POTASSIUM 3.8 mmol/L (3.5-5.1)
--- NOTE | 2021-05-28 18:30 | NUR ---
PT IS SLEEPING BUT AWOKEN TO VOICE. PT ON RA WITH UNLABORED BREATHING. PT STATES HE HAS NO PAIN. PT IS STABLE. WILL CONTINUE TO MONITOR.
--- NOTE | 2021-05-28 18:35 | NUR ---
ALL OF THE POST OP VITAL SIGNS FOR PT ARE STABLE. PT WAS ABLE TO TOLERATE FULL LIQUID FOOD. PT DENIES ANY PAIN. WILL CONTINUE TO MONITOR.
--- NOTE | 2021-05-28 19:10 | NUR ---
ENDORSED PT TO PILOT FUEL ENGINEER NURSE FOR CONTINUITY OF CARE. PT IS AWAKE AND ALERT. NO DISTRESS NOTED. PT IS STABLE. PLAN OF CARE DISCUSSED.
--- NOTE | 2021-05-28 19:30 | NUR ---
FERRIC GLUCONATE WAS NOT ABLE TO BE ADMINISTERED YET BECAUSE SODIUM PHOSPHATE IS STILL INFUSING SINCE PT RETURNED FROM OR. ENDORSED TO CITY MAINTENANCE MANAGER NURSE.
[2021-05-28] MEDS ORDERED: SODIUM FERRIC GLUCONATE 12.5 MG/ML AMP IV ONE (20:28)
[2021-05-28] MEDS: SODIUM FERRIC GLUCONATE 125 MG in NACL 0.9% 100 ML IV SCH (20:39)
--- NOTE | 2021-05-28 22:21 | NUR ---
DISCUSSION ABOUT ORDER FOR PATIENT DIET FULL LIQUID. EDUCATION ABOUT ESOPHAGITIS, ALCOHOL RELATED WORSENING OF VARICES AND ESOPHAGITIS AND ALSO ANEMIA RELATED TO THE PATIENT HISTORY OF VARICES. PATIENT VERBALIZES UNDERSTANDING OF TEACHING AND WANTS TO STOP USING ALCOHOL. REQUESTING TO ADVANCE DIET TO SOFT FOODS. TOOL GRINDER PROVIDED LIQUID NOURISHMENT AT THIS TIME. JUDITH LR RN
[2021-05-29 01:09] VITALS: BP 112/60
--- NOTE | 2021-05-29 01:50 | NUR ---
COVERING ASSIGN RN FOR LUNCH BREAK. ADMIN PRN EVAN PO FOR INSOMNIA. PT VERBALIZED UNDERSTANDING. CALL LIGHT IS WITHIN REACH.
[2021-05-29] MEDS: METOCLOPRAMIDE 10 MG/2 ML INJ VIAL IVP SCH (04:11)
[2021-05-29 04:52] VITALS: BP 110/72
--- NOTE | 2021-05-29 05:45 | NUR ---
PATIENT REQUESTS TO SHOWER AND EAT REGULAR FOODS FOR BREAKFAST. ENCOURAGED PATIENT TO DISCUSS TREATMENT PLAN WITH MD IN AM FOR FURTHER ORDERS REGARDING ADL'S AND DIET ORDERS. JUDITH LR RN
--- NOTE | 2021-05-29 07:30 | NUR ---
RECEIVED CHANGE OF SHIFT REPORT FROM NIGHT NURSE AT BEDSIDE FOR CONTINUITY OF CARE. REVIEWED AND WILL CONTINUE WITH POC. PT IS CURRENTLY AWAKE TALKING TO NIGHT NURSE . PT CONDITION IS STABLE. PT IS AA&OX4. PT IS ON RA WITH NORMAL, UNLABORED BREATHING. PT HAS PATENT RIGHT FOREARM 22 G SALINE LOCK. NEW IV WAS PLACED BY NIGHT NURSE AFTER FALLING OUT WHILE SHOWERING. PT HAD COMPLAINED THAT IV WAS BURNING BUT I WITNESSED NIGHT NURSE FLUSH PT IV SITE WITH NO SIGNS OF INFILTRATION. IVF RUNNING PER MD ORDER. PT IS AMBULATORY INDEPENDENTLY. PT SKIN IS INTACT, WARM, AND DRY. WILL CONTINUE TO MONITOR AND PERFORM FREQ ROUNDING.
--- NOTE | 2021-05-29 07:35 | NUR ---
HANDOFF WITH REMY DURAN. JUDITH LR RN
[2021-05-29 08:00] VITALS: BP 120/73
[2021-05-29 08:08] LABS: FOLIC ACID 3.3 ng/mL (>3.0); T4 (THYROXINE) 5.6 ug/dL (4.5-12.0)
[2021-05-29 08:43] LABS: BASOPHILS % (AUTO) 0.4 % (0.0-2.0); EOSINOPHILS # (AUTO) 0.1 K/uL (0-0.4); EOSINOPHILS % (AUTO) 1.7 % (0.0-4.0); HEMATOCRIT 26.6 % (36-52); LYMPHOCYTES # (AUTO) 0.9 K/uL (2.0-11.5); LYMPHOCYTES % (AUTO) 11.1 % (20.5-51.1); MEAN CORPUSCULAR HEMOGLOBIN 22 pg (27-31); MEAN CORPUSCULAR HGB CONC 30 g/dL (33-37); MONOCYTES # (AUTO) 0.4 K/uL (0.8-1.0); MONOCYTES % (AUTO) 5.1 % (1.7-9.3); NEUTROPHILS # (AUTO) 6.9 K/uL (1.8-7.7); NEUTROPHILS % (AUTO) 81.7 % (42.2-75.2); PLATELET COUNT (AUTO) 118 K/uL (140-450); RED BLOOD CELL COUNT(AUTO) 3.64 MIL/uL (4.20-6.10); RED CELL DISTRIBUTION WIDTH 23.8 % (11.6-13.7); WHITE BLOOD COUNT (AUTO) 8.4 K/uL (4.8-10.8)
[2021-05-29] MEDS: MULTIVITAMIN 1 TAB PO SCH (09:07)
[2021-05-29] MEDS: SENNA 8.6 MG TAB PO SCH (09:07)
[2021-05-29] MEDS: FOLIC ACID 1 MG TAB PO SCH (09:07)
[2021-05-29] MEDS: FERROUS SULFATE 325 MG TABEC PO SCH (09:07)
[2021-05-29] MEDS: THIAMINE 100 MG TAB PO SCH (09:07)
[2021-05-29] MEDS: PANTOPRAZOLE 40 MG INJ VIAL IVP SCH (09:08)
[2021-05-29] MEDS: POTASSIUM CHL 20 MEQ/D5-1/2NS 1,000 ML IV SCH (09:08)
[2021-05-29] MEDS ORDERED: FOLI1TAB90 PO (09:09)
[2021-05-29] MEDS ORDERED: DOCU-299 PO (09:09)
[2021-05-29] MEDS ORDERED: THIA-34 PO (09:09)
[2021-05-29] MEDS ORDERED: LIB25 PO (09:09)
--- NOTE | 2021-05-29 09:30 | NUR ---
PT IS AWAKE, A&OX4. SPEAKING APPROPRIATELY. DENIES PAIN. DENIES N/V, DIARRHEA. BREATHING IS UNLABORED ON RA. PT SHOWERED AND IS WEARING HIS OWN CLOTHING. PT STATES HE IS READY TO LEAVE THE HOSPITAL. WILL WAIT FOR DISCHARGE ORDERS. EDUCATION WAS PROVIDED AND PT VERBALIZED UNDERSTANDING.
[2021-05-29 10:26] VITALS: BP 120/73
--- NOTE | 2021-05-29 11:01 | NUR ---
PT WAS DISCHARGED FROM THE HOSPITAL. PT LEFT THE UNIT BY AMBULATING INDEPENDENTLY TO PRIVATE VEHICLE ON THE PREMISES. PT IS STABLE. NO DISTRESS NOTED. PT DENIES PAIN, N/V, DIARRHEA. DISCHARGE INSTRUCTIONS WERE GIVEN AND PT VERBALIZED UNDERSTANDING. ID BAND REMOVED AND IV REMOVED WELL. BLEEDING WAS CONTROLLED. BELONGINGS WERE TAKEN BY PT.
[2021-05-29 11:57] LABS: ANION GAP 10.8 (8-16); CARBON DIOXIDE 25.6 mmol/L (21-32); CREATININE 0.8 mg/dL (0.6-1.3); POTASSIUM 3.4 mmol/L (3.5-5.1)
[2021-05-29 12:03] LABS: MAGNESIUM 1.9 mg/dL (1.8-2.4); PHOSPHORUS 1.6 mg/dL (2.5-4.9)
== END 2021-05-29 11:00 | disposition home or self-care (01) | DRG 380 ==
LOC: MED 00:42 → MTU 02:49
PROC: 0DB58ZX Excision of Esophagus, Via Natural or Artificial Opening Endoscopic, Diagnostic (ICD-10-PCS; principal; 2021-05-28 15:00)
DX: K22.11 Ulcer of esophagus with bleeding (principal); K85.20 Alcohol induced acute pancreatitis without necrosis or infection; E87.1 Hypo-osmolality and hyponatremia; F10.10 Alcohol abuse, uncomplicated; K21.00 Gastro-esophageal reflux disease with esophagitis, without bleeding; R74.8 Abnormal levels of other serum enzymes; D50.9 Iron deficiency anemia, unspecified; E78.5 Hyperlipidemia, unspecified; E87.6 Hypokalemia; E83.42 Hypomagnesemia; E83.39 Other disorders of phosphorus metabolism; K44.9 Diaphragmatic hernia without obstruction or gangrene; K22.9 Disease of esophagus, unspecified; Z91.19 Patient's noncompliance with other medical treatment and regimen; Z87.11 Personal history of peptic ulcer disease; Z72.89 Other problems related to lifestyle
CPT/HCPCS: 36415; 80048; 80053; 80305; 81003; 82150; 82272; 82607; 82728; 82746; 83036; 83540; 83690; 83735; 83880; 84100; 84134; 84436; 84443; 85025; 85045; 85610; 85730; 86886; 86900; 86901; 87081; 96365; 96375; 99291; C9113; G0482; J0696; J1200; J2001; J2250; J2270; J2405; J2765; J2916; J3010; J3475; J3480; J7030

== ENCOUNTER 2021-07-22 03:56 | Emergency (ER) | payer SELFPAY ==
[~2021-07-22] VITALS: Ht 170.2 cm; Wt 68.0 kg
[~2021-07-22 03:56] MED LIST changes: -AMOX-1000 PO; +DOCU-299 PO; +FOLI1TAB90 PO; -IBUP-2218 PO; +LIB25 PO; -OMEP40EC23 PO; -PANT40EC PO; +THIA-34 PO
[2021-07-22 04:13] VITALS: BP 119/73
--- NOTE | 2021-07-22 04:21 | NUR ---
AMBULATED TO BED 12 FROM TRIAGE
[2021-07-22] MEDS ORDERED: PANTOPRAZOLE 40 MG INJ VIAL IVP ONE (05:10)
[2021-07-22] MEDS ORDERED: ONDANSETRON 4 MG/2 ML VIAL IVP ONE (05:10)
[2021-07-22] MEDS ORDERED: MORPHINE SULFATE 4 MG/ML SYR IVP ONE (05:10)
--- NOTE | 2021-07-22 05:30 | NUR ---
PER PATIENT HAS BEEN VOMITING BLOOD SINCE FRIDAY MORNING AND HAS SOME WEAKNESS. STATES PREVIOUS HISTORY OF GASTRIC ULCERS AND HAS THROWN UP BLOOD BEFORE. NEEDED TRANSFUSION AT ONE TIME. CURRNELTY REPORTS ABDOMINAL PAIN AND HEMATEMISIS. NO FURTHER OCMPLAINTS.
[2021-07-22 05:50] LABS: BASOPHILS % (AUTO) 0.6 % (0.0-2.0); EOSINOPHILS # (AUTO) 0.1 K/uL (0-0.4); EOSINOPHILS % (AUTO) 3.2 % (0.0-4.0); HEMOGLOBIN 9.3 g/dL (12.0-18.0); LYMPHOCYTES # (AUTO) 1.3 K/uL (2.0-11.5); MEAN CORPUSCULAR HEMOGLOBIN 22 pg (27-31); MEAN CORPUSCULAR HGB CONC 31 g/dL (33-37); MEAN CORPUSCULAR VOLUME 72.3 fL (80-94); MONOCYTES # (AUTO) 0.6 K/uL (0.8-1.0); MONOCYTES % (AUTO) 13.9 % (1.7-9.3); NEUTROPHILS # (AUTO) 2.3 K/uL (1.8-7.7); NEUTROPHILS % (AUTO) 53.3 % (42.2-75.2); PLATELET COUNT (AUTO) 158 K/uL (140-450); RED BLOOD CELL COUNT(AUTO) 4.16 MIL/uL (4.20-6.10); RED CELL DISTRIBUTION WIDTH 23.1 % (11.6-13.7); WHITE BLOOD COUNT (AUTO) 4.4 K/uL (4.8-10.8)
[2021-07-22 06:10] LABS: ALBUMIN 3.2 g/dL (3.4-5.0); ANION GAP 12.9 (8-16); CREATININE 0.7 mg/dL (0.6-1.3); TOTAL BILIRUBIN 0.4 mg/dL (0.0-1.0)
[2021-07-22 06:22] LABS: POTASSIUM 2.9 mmol/L (3.5-5.1)
[2021-07-22] MEDS ORDERED: POTASSIUM CHLORIDE 10 MEQ TABER PO ONE (06:55)
--- NOTE | 2021-07-22 07:15 | NUR ---
REPORT RECEIVED FROM AKSHAT ALBERTO FOR CONTINUITY OF CARE. PT IN BED, RESTING ON ROOM AIR RESPIRAITIONS EVEN UNLABORED, LT AC 18 G INTACT, PATENT, GOOD BLOOD RETURN
[2021-07-22] MEDS ORDERED: FAMO-92 PO (07:29)
[2021-07-22 07:37] VITALS: BP 106/73
== END 2021-07-22 07:37 | disposition home or self-care (01) ==
LOC: MED 03:56
DX: K27.9 Peptic ulcer, site unspecified, unspecified as acute or chronic, without hemorrhage or perforation (principal); R11.10 Vomiting, unspecified; Z79.899 Other long term (current) drug therapy
CPT/HCPCS: 36415; 80053; 82150; 83690; 85025; 96374; 96375; 99284; C9113; J2270; J2405

== ENCOUNTER 2021-08-15 22:39 | Emergency (ER) | payer SELFPAY ==
[~2021-08-15] VITALS: Ht 170.2 cm; Wt 70.3 kg
[~2021-08-15 22:39] MED LIST changes: +AMOX500C25 PO; +CLAR500T3 PO; +FAMO-92 PO; +LORA-476 PO; +OMEP20EC10 PO
[2021-08-15 23:00] VITALS: BP 98/72
--- NOTE | 2021-08-15 23:42 | NUR ---
Dr. Abreu examining patient.
[2021-08-16] MEDS ORDERED: NACL 0.9% 1,000 ML IV ONE ×2 (00:15→01:30)
[2021-08-16] MEDS ORDERED: ONDANSETRON 4 MG/2 ML VIAL IVP ONE (00:15)
[2021-08-16 00:42] LABS: BASOPHILS % (AUTO) 0.6 % (0.0-2.0); HEMOGLOBIN 9.3 g/dL (12.0-18.0); LYMPHOCYTES # (AUTO) 0.9 K/uL (2.0-11.5); LYMPHOCYTES % (AUTO) 15.8 % (20.5-51.1); MEAN CORPUSCULAR HEMOGLOBIN 22 pg (27-31); MEAN CORPUSCULAR HGB CONC 32 g/dL (33-37); MONOCYTES # (AUTO) 0.6 K/uL (0.8-1.0); MONOCYTES % (AUTO) 10.1 % (1.7-9.3); NEUTROPHILS # (AUTO) 4.1 K/uL (1.8-7.7); NEUTROPHILS % (AUTO) 73.5 % (42.2-75.2); PLATELET COUNT (AUTO) 160 K/uL (140-450); RED BLOOD CELL COUNT(AUTO) 4.33 MIL/uL (4.20-6.10); RED CELL DISTRIBUTION WIDTH 23.6 % (11.6-13.7); WHITE BLOOD COUNT (AUTO) 5.6 K/uL (4.8-10.8)
[2021-08-16 00:59] LABS: ALBUMIN 3.7 g/dL (3.4-5.0); ASPARTATE AMINOTRANSFERASE 33 U/L (15-37); CARBON DIOXIDE 31.8 mmol/L (21-32); CHLORIDE 93 mmol/L (98-107); CREATININE 0.9 mg/dL (0.6-1.3); GFR ARICAN-AMERICAN 127 mL/min (>90); GLUCOSE 101 mg/dL (74-106); LIPASE 368 U/L (73-393); SODIUM SERUM 134 mmol/L (136-145); TOTAL BILIRUBIN 1.1 mg/dL (0.0-1.0); UREA NITROGEN, BLOOD 8 mg/dL (7-18)
[2021-08-16 01:03] LABS: POTASSIUM 2.8 mmol/L (3.5-5.1)
[2021-08-16] MEDS ORDERED: POTASSIUM CHLORIDE 10 MEQ TABER PO ONE (01:30)
[2021-08-16] MEDS ORDERED: PROCHLORPERAZINE 10 MG/2 ML VIAL IVP ONE (01:30)
--- NOTE | 2021-08-16 02:00 | NUR ---
DECREASED NAUSEA MEDICATED PER ORDERS
[2021-08-16 02:36] LABS: BARBITURATE, URINE NEGATIVE ng/ml (NEG <=200); BENZODIAZEPINE, URINE NEGATIVE ng/mL (NEG <=200); CANNABINOID, URINE NEGATIVE ng/mL (NEG <=50); COCAINE, URINE NEGATIVE ng/mL (NEG <=300); OPIATE, URINE NEGATIVE ng/mL (NEG <=2000); PHENCYCLIDINE SCREEN,URINE NEGATIVE ng/mL (NEG <=25)
--- NOTE | 2021-08-16 03:01 | NUR ---
CONTINUES IN DEPT. NO N/V AT THIS TIME PENDING DISPO
[2021-08-16] MEDS ORDERED: ONDA-188 SL (03:04)
[2021-08-16] MEDS ORDERED: PANT40EC PO (03:05)
[2021-08-16 03:47] VITALS: BP 107/63
== END 2021-08-16 03:40 | disposition home or self-care (01) ==
LOC: MED 22:39
DX: R11.2 Nausea with vomiting, unspecified (principal); D64.9 Anemia, unspecified; E87.6 Hypokalemia
CPT/HCPCS: 36415; 74176; 80053; 80305; 83690; 85025; 96361; 96374; 96375; 99284; G0482; J0780; J2405; J7030

== ENCOUNTER 2021-09-25 17:26 | Inpatient (IN) | payer SELFPAY ==
[~2021-09-25] VITALS: Ht 170.2 cm; Wt 71.7 kg
[~2021-09-25 17:26] MED LIST changes: +ONDA-188 SL; +PANT40EC PO
--- NOTE | 2021-09-25 17:30 | NUR ---
PT AMBULATED TO BED, STEADY GAIT
[2021-09-25 17:32] VITALS: BP 136/93
[2021-09-25] MEDS ORDERED: FAMOTIDINE 20 MG/2 ML VIAL IVP ONE (17:40)
[2021-09-25] MEDS ORDERED: NACL 0.9% 1,000 ML IV ONE (17:40)
[2021-09-25] MEDS ORDERED: ONDANSETRON 4 MG/2 ML VIAL IVP ONE (17:40)
[2021-09-25] MEDS ORDERED: PANTOPRAZOLE 40 MG INJ VIAL IVP ONE (17:50)
[2021-09-25] MEDS ORDERED: MORPHINE SULFATE 4 MG/ML SYR IVP ONE (17:50)
--- NOTE | 2021-09-25 17:50 | NUR ---
iv established, labs drawn and given to phleb at this time
[2021-09-25 18:04] LABS: BASOPHILS % (AUTO) 0.2 % (0.0-2.0); EOSINOPHILS % (AUTO) 0.1 % (0.0-4.0); LYMPHOCYTES # (AUTO) 0.5 K/uL (2.0-11.5); LYMPHOCYTES % (AUTO) 5.9 % (20.5-51.1); MEAN CORPUSCULAR HEMOGLOBIN 21 pg (27-31); MEAN CORPUSCULAR HGB CONC 31 g/dL (33-37); MEAN CORPUSCULAR VOLUME 65.9 fL (80-94); MONOCYTES # (AUTO) 0.6 K/uL (0.8-1.0); MONOCYTES % (AUTO) 6.5 % (1.7-9.3); NEUTROPHILS % (AUTO) 87.3 % (42.2-75.2); PLATELET COUNT (AUTO) 312 K/uL (140-450); WHITE BLOOD COUNT (AUTO) 9.1 K/uL (4.8-10.8)
[2021-09-25 18:21] LABS: ALBUMIN 4.2 g/dL (3.4-5.0); ANION GAP 22.6 (8-16); CARBON DIOXIDE 29.2 mmol/L (21-32); CREATININE 1.2 mg/dL (0.6-1.3); TOTAL BILIRUBIN 0.6 mg/dL (0.0-1.0)
[2021-09-25 18:22] LABS: POTASSIUM 2.8 mmol/L (3.5-5.1)
[2021-09-25] MEDS ORDERED: KCL 20 MEQ/WATER INJ PREMIX 200 ML IV ONE (18:25)
[2021-09-25] MEDS ORDERED: MAG SULF 2000 MG/WATER PREMIX 50 ML IV ONE (18:25)
[2021-09-25] MEDS ORDERED: FAMOTIDINE 20 MG/2 ML VIAL ONE (18:28)
--- NOTE | 2021-09-25 18:58 | NUR ---
30 y/o male bib self from home, pt presents to er with c/o epigastric pain, nausea and vomiting that started last night. pt states he drank alcohol yesterday, unspecific about what type or amount. skin intact cool/pale/diaphoretic. denies cp, sob, cough, fever. denies anyone sick in household. hr even and tachy. even and symmetrical respirations, lung bases clear. pmh: gastric ulcer nka med: denies
--- NOTE | 2021-09-25 18:58 | NUR ---
kayla swabbed and given to lab
--- NOTE | 2021-09-25 19:16 | NUR ---
PT REPORT RECEIVED FROM REMY MCNEIL FOR CONTINUITY OF PT CARE AT THIS TIME.
--- NOTE | 2021-09-25 19:30 | NUR ---
PT LAYING SUPINE IN BED LOCKED IN LOWEST POSITION W X1 SIDERAIL UP. PT C/O NAUSEA AND ABDOMINAL PAIN. PT REPORTS WANTING TO DRINK WATER, EXPLAINED NPO STATUS TO PT. PT VSS BUT TACHY AT 105HR. BREATHING EVEN AND UNLABORED. NAD NOTED, WILL CONTINUE TO MONITOR.
[2021-09-25] MEDS ORDERED: SODIUM PHOS / POTASSIUM PHOS 1 PKT PDR PO PRN (20:20)
[2021-09-25] MEDS ORDERED: ACETAMINOPHEN 325 MG TAB PO PRN (20:20)
[2021-09-25] MEDS ORDERED: DOCUSATE SODIUM 100 MG GELCAP PO PRN (20:20)
[2021-09-25] MEDS ORDERED: ONDANSETRON 4 MG/2 ML VIAL IM/IVP PRN (20:20)
[2021-09-25] MEDS ORDERED: MAG SULF 2000 MG/WATER PREMIX 50 ML IV PRN (20:20)
[2021-09-25] MEDS ORDERED: HYDROcodone/APAP 5/325 MG 1 TAB TAB PO PRN (20:20)
[2021-09-25] MEDS ORDERED: POTASSIUM CHLORIDE 10 MEQ TABER PO SCH (20:20)
[2021-09-25 20:45] LABS: MAGNESIUM 1.9 mg/dL (1.8-2.4); PHOSPHORUS 5.7 mg/dL (2.5-4.9)
[2021-09-25] MEDS: NACL 0.9% 1,000 ML IV SCH (21:55)
[2021-09-25 22:07] LABS: BARBITURATE, URINE NEGATIVE ng/ml (NEG <=200); BENZODIAZEPINE, URINE NEGATIVE ng/mL (NEG <=200); CANNABINOID, URINE NEGATIVE ng/mL (NEG <=50); COCAINE, URINE NEGATIVE ng/mL (NEG <=300); OPIATE, URINE NEGATIVE ng/mL (NEG <=2000); PHENCYCLIDINE SCREEN,URINE NEGATIVE ng/mL (NEG <=25)
[2021-09-25] MEDS: MORPHINE SULFATE 2 MG/ML SYR IVP PRN (22:26)
--- NOTE | 2021-09-25 22:30 | NUR ---
Patient will be admitted to care of DR READ. Admited to Med/Surg. Will go to room 120B. Belongings list completed. Report to DAVID ALBERTO.
--- NOTE | 2021-09-25 22:35 | NUR ---
ADMITTED PATIENT FROM ER VIA [facility] WITH 2 STAFF WITH CHIEF COMPLAINT OF EPIGASTRIC PAIN, N/V LAST NIGHT. PATIENT DIAGNOSED OF ACUTE PANCREATITIS. PATIENT IS AWAKE, ALERT AND VERBALLY RESPONSIVE. A/OX4. ABLE TO VERBALIZED NEEDS. HEAD TO TOE ASSESSMENT BY REMY CARNEY COMPLETED. PATIENT ON ROOM AIR. BREATHING EVEN AND UNLABORED WITH NO SOB NOTED. INITIAL VITAL SIGN TAKEN. IV SITE ON RIGHT ARM 22G INFUSING NORMAL SALINE 150ML/HR. ORIENTED TO CALL LIGHT, BED, PHONE, TELEVISION, BATHROOM, VISITING HOURS, ID BRACELET ON, BELONGINGS LIST CHECKED. ALL SAFETY MEASURES IN PLACE. CALL LIGHT WITHIN REACH. WILL CONTINUE WITH THE PLAN OF CARE.
--- NOTE | 2021-09-26 00:49 | NUR ---
ROUNDED PATIENT. PATIENT ASLEEP AT THIS TIME. CALL LIGHT WITHIN REACH. WILL CONTINUE TO MONITOR.
--- NOTE | 2021-09-26 02:08 | NUR ---
CHECKED PATIENT. STABLE AND AWAKE. PATIENT IS C/O ABDOMINAL PAIN 05/22. ADVISED PATIENT NEXT MORPHINE SULFATE PRN IS DUE AT 0224. PATIENT VERBALIZES UNDERSTANDING. RESPIRATIONS EVEN AND UNLABORED. NO APPARENT S/SX OF ACUTE DISTRESS. WHITE COMMUNICATION BOARD UPDATED. ALL SAFETY MEASURES IN PLACE. CALL LIGHT WITHIN REACH. WILL CONTINUE TO MONITOR.
[2021-09-26] MEDS: MORPHINE SULFATE 2 MG/ML SYR IVP PRN ×3 (02:38→15:31)
[2021-09-26] MEDS: NACL 0.9% 1,000 ML IV SCH ×3 (03:00→16:20)
[2021-09-26 04:00] VITALS: BP 140/77
--- NOTE | 2021-09-26 04:05 | NUR ---
SCHEDULED VITAL SIGNS TAKEN. STABLE AND AWAKE. PATIENT REPORTS DISCOMFORT IN ABDOMINAL AREA. PATIENT STATES PAIN IN ABDOMINAL AREA 05/22. WILL CONTACT MD FOR PRN. RESPIRATIONS EVEN AND UNLABORED. NO APPARENT S/SX OF ACUTE DISTRESS. WHITE COMMUNICATION BOARD UPDATED. ALL SAFETY MEASURES IN PLACE. CALL LIGHT WITHIN REACH. WILL CONTINUE TO MONITOR.
--- NOTE | 2021-09-26 06:05 | NUR ---
CHECKED PATIENT. STABLE AND AWAKE. RESPIRATIONS EVEN AND UNLABORED. NO APPARENT S/SX OF ACUTE DISTRESS. WHITE COMMUNICATION BOARD UPDATED. ALL SAFETY MEASURES IN PLACE. CALL LIGHT WITHIN REACH.
[2021-09-26 06:59] LABS: BASOPHILS % (AUTO) 0.4 % (0.0-2.0); EOSINOPHILS % (AUTO) 0.2 % (0.0-4.0); HEMATOCRIT 28.9 % (36-52); HEMOGLOBIN 9.3 g/dL (12.0-18.0); LYMPHOCYTES # (AUTO) 0.7 K/uL (2.0-11.5); LYMPHOCYTES % (AUTO) 11.5 % (20.5-51.1); MEAN CORPUSCULAR HEMOGLOBIN 21 pg (27-31); MEAN CORPUSCULAR HGB CONC 32 g/dL (33-37); MEAN CORPUSCULAR VOLUME 66.4 fL (80-94); MONOCYTES # (AUTO) 0.4 K/uL (0.8-1.0); MONOCYTES % (AUTO) 6.6 % (1.7-9.3); NEUTROPHILS # (AUTO) 4.8 K/uL (1.8-7.7); NEUTROPHILS % (AUTO) 81.3 % (42.2-75.2); PLATELET COUNT (AUTO) 198 K/uL (140-450); RED BLOOD CELL COUNT(AUTO) 4.35 MIL/uL (4.20-6.10); RED CELL DISTRIBUTION WIDTH 22.6 % (11.6-13.7); WHITE BLOOD COUNT (AUTO) 5.9 K/uL (4.8-10.8)
[2021-09-26 07:11] LABS: ANION GAP 10.3 (8-16); CARBON DIOXIDE 32.6 mmol/L (21-32); CREATININE 0.9 mg/dL (0.6-1.3)
--- NOTE | 2021-09-26 07:20 | NUR ---
RECEIVE REPORT FROM GRID TRIMMER NURSE FOR CONTINUITY OF PATIENT CARE. PATIENT SLEEPING. NO ACUTE DISTRESS NOTED. PATIENT ON ROOM AIR. PATIENT NPO. ALL SAFETY MEASURES IN PLACE. CALL LIGHT WITHIN REACH. WILL CONTINUE TO MONITOR.
--- NOTE | 2021-09-26 07:30 | NUR ---
ENDORSED PATIENT TO AM SHIFT NURSE FOR CONTINUITY OF CARE. PATIENT IS STABLE.
--- NOTE | 2021-09-26 08:04 | NUR ---
PATIENT HAS BEEN SCREENED AND CATEGORIZED HIGH NUTRITION RISK. PATIENT WILL BE SEEN WITHIN 1-2 DAYS OF ADMISSION. 09/26/21-09/27/21 REFERRAL RECEIVED FOR VOMITING OVER [address]
[2021-09-26] MEDS: PANTOPRAZOLE 40 MG INJ VIAL IVP SCH (09:01)
--- NOTE | 2021-09-26 09:02 | NUR ---
PATIENT AWAKE AND ALERT. PATIENT COMPLAIN OF ABDOMINAL PAIN. MORPHINE 1 MG GIVEN. SCHEDULED MEDICATION GIVE. ALL SAFETY MEASURES IN PLACE. CALL LIGHT WITHIN REACH. WILL CONTINUE TO MONITOR.
[2021-09-26 10:00] LABS: POTASSIUM 2.9 mmol/L (3.5-5.1)
--- NOTE | 2021-09-26 11:45 | NUR ---
PATIENT AWAKE AND ALERT. NO ACUTE DISTRESS NOTED. ALL SAFETY MEASURES IN PLACE. CALL LIGHT WITHIN REACH. WILL CONTINUE TO MONITOR.
--- NOTE | 2021-09-26 13:49 | NUR ---
09/26/21 RD INITIAL ASSESSMENT COMPLETED PLEASE REFER TO NUTRITION ASSESSMENT UNDER CARE ACTIVITY FOR ESTIMATED NUTRITIONAL NEEDS. 1. WHEN/IF MEDICALLY APPROPRIATE, RECOMMEND CLEAR LIQUID DIET BEFORE ADVANCE TO SOLID FOODS -RECOMMEND LOW-FAT DIET UNTIL MEDICALLY STABLE 3. RD TO FOLLOW-UP 3-5 DAYS, MODERATE RISK NATHANIEL MCDOWELL RD
--- NOTE | 2021-09-26 13:59 | NUR ---
PATIENT SLEEPING. BREATHING EVEN AND UNLABORED. NO ACUTE DISTRESS NOTED. ALL SAFETY MEASURES IN PLACE. CALL LIGHT WITHIN REACH. WILL CONTINUE TO MONITOR.
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
--- NOTE | 2021-09-26 15:48 | NUR ---
PATIENT AWAKE AND ALERT. NO ACUTE DISTRESS NOTED. PATIENT DENIES PAIN AT THIS TIME. ALL SAFETY MEASURES IN PLACE. CALL LIGHT WITHIN REACH. WILL CONTINUE TO MONITOR.
[2021-09-26] MEDS ORDERED: POTASSIUM CHL 20 MEQ/NACL 0.9% 1,000 ML IV ONE (15:50)
[2021-09-26 16:00] VITALS: BP 125/80
--- NOTE | 2021-09-26 17:13 | NUR ---
PATIENT AWAKE AND ALERT. NO ACUTE DISTRESS NOTED. PATIENT DENIES PAIN AT THIS TIME. PATIENT STATE "IM REALLY SCARED I WANT TO STOP DRINKING" TOLD PATIENT I WOULD ASK SW TO HELP WITH RESOURCES. ALL SAFETY MEASURES IN PLACE. CALL LIGHT WITHIN REACH. WILL CONTINUE TO MONITOR.
--- NOTE | 2021-09-26 19:20 | NUR ---
ENDORSED TO SILVER HOLLOWARE ASSEMBLER NURSE FOR CONTINUITY OF PATIENT CARE. PATIENT STABLE.
--- NOTE | 2021-09-26 20:05 | NUR ---
VITALS WERE TAKEN, INITIAL ASSESSMENT DONE
--- NOTE | 2021-09-26 21:30 | NUR ---
MADE ROUNDS, PATIENT IS AWAKE, WATCHING TV, NO DISTRESS NOTED. WILL CONTINUE TO MONITOR
[2021-09-27] MEDS: NACL 0.9% 1,000 ML IV SCH ×3 (01:01→08:41)
--- NOTE | 2021-09-27 02:06 | NUR ---
PATIENT IV GOT INFILTRATED, REMOVED, AND INSERT NEW ONE TO THE LEFT FA 22G. PATIENT TOLERATED IT WELL. WILL CONTINUE TO MONITOR
[2021-09-27] MEDS: MORPHINE SULFATE 2 MG/ML SYR IVP PRN (04:07)
--- NOTE | 2021-09-27 04:07 | NUR ---
PATIENT COMPLAINED OF ABDOMINAL PAIN 7/10 PRN PAIN MEDS GIVEN PER ORDER WILL CONTINUE TO MONITOR
--- NOTE | 2021-09-27 07:05 | NUR ---
RECEIVE REPORT FROM LAPIDARY APPRENTICE NURSE FOR CONTINUITY OF PATIENT CARE. PATIENT SLEEPING. BREATHING EVEN AND UNLABORED. PATIENT HAS LFA 22G INTACT AND PATENT.ALL SAFETY MEASURES IN PLACE. CALL LIGHT WITHIN REACH WILL CONTINUE TO MONITOR.
--- NOTE | 2021-09-27 07:16 | NUR ---
ENDORSED PATIENT TO DAY SHIFT NURSE FOR CONTINUITY OF CARE
[2021-09-27 07:36] LABS: ANION GAP 10.4 (8-16); CARBON DIOXIDE 26.7 mmol/L (21-32); CREATININE 0.6 mg/dL (0.6-1.3); POTASSIUM 3.1 mmol/L (3.5-5.1)
[2021-09-27 07:47] LABS: BASOPHILS % (AUTO) 0.2 % (0.0-2.0); EOSINOPHILS % (AUTO) 0.4 % (0.0-4.0); HEMATOCRIT 27.6 % (36-52); HEMOGLOBIN 8.6 g/dL (12.0-18.0); LYMPHOCYTES # (AUTO) 0.5 K/uL (2.0-11.5); LYMPHOCYTES % (AUTO) 7.7 % (20.5-51.1); MEAN CORPUSCULAR HEMOGLOBIN 21 pg (27-31); MEAN CORPUSCULAR HGB CONC 31 g/dL (33-37); MEAN CORPUSCULAR VOLUME 68.1 fL (80-94); MONOCYTES # (AUTO) 0.3 K/uL (0.8-1.0); MONOCYTES % (AUTO) 5.1 % (1.7-9.3); NEUTROPHILS # (AUTO) 5.9 K/uL (1.8-7.7); NEUTROPHILS % (AUTO) 86.6 % (42.2-75.2); PLATELET COUNT (AUTO) 141 K/uL (140-450); RED BLOOD CELL COUNT(AUTO) 4.05 MIL/uL (4.20-6.10); RED CELL DISTRIBUTION WIDTH 22.5 % (11.6-13.7); WHITE BLOOD COUNT (AUTO) 6.8 K/uL (4.8-10.8)
[2021-09-27 08:00] VITALS: BP 121/81
[2021-09-27] MEDS: PANTOPRAZOLE 40 MG INJ VIAL IVP SCH (08:41)
--- NOTE | 2021-09-27 08:47 | NUR ---
PATIENT AWAKE AND ALERT. NO ACUTE DISTRESS NOTED. PATIENT DENIES PAIN AT THIS TIME.SCHEDULED MEDICATION GIVEN. ALL SAFETY MEASURES IN PLACE. CALL LIGHT WITHIN REACH. WILL CONTINUE TO MONITOR.
--- NOTE | 2021-09-27 10:47 | NUR ---
PATIENT AWAKE AND ALERT. NO ACUTE DISTRESS NOTED. PATIENT DENIES PAIN AT THIS TIME. SAFETY MEASURES IN PLACE. CALL LIGHT WITHIN REACH. WILL CONTINUE TO MONITOR.
--- NOTE | 2021-09-27 12:36 | NUR ---
PATIENT AWAKE AND ALERT. NO ACUTE DISTRESS NOTED. PATIENT DENIES PAIN AT THIS TIME. SAFETY MEASURES IN PLACE. CALL LIGHT WITHIN REACH. WILL CONTINUE TO MONITOR.
[2021-09-27] MEDS: LACTATED RINGERS 1,000 ML IV SCH ×2 (12:50→17:50)
[2021-09-27] MEDS ORDERED: KCL 20 MEQ/WATER INJ PREMIX 200 ML IV SCH (13:30)
[2021-09-27] MEDS ORDERED: LORazepam 2 MG/ML VIAL IM/IVP PRN (14:30)
--- NOTE | 2021-09-27 14:59 | NUR ---
PATIENT SLEEPING. BREATHING EVEN AND UNLABORED. NO ACUTE DISTRESS NOTED. SAFETY MEASURES IN PLACE. CALL LIGHT WITHIN REACH. WILL CONTINUE TO MONITOR.
--- NOTE | 2021-09-27 16:53 | NUR ---
PATIENT BECOMING AGITATED AND AGGRESSIVE. PATIENT PULLED PUT IV. CHARGE NURSE INSERTING NEW IV. ATIVAN 1 MG TO BE ADMINISTERED. NOTIFIED.
--- NOTE | 2021-09-27 18:56 | NUR ---
PATIENT PULLED OUT IV. CATHETER INTACT. TERESA ALBERTO PUTTING NEW IV.
--- NOTE | 2021-09-27 19:25 | NUR ---
ENDORSED REPORT TO TECHNICIAN CHEMICAL CLEANING NURSE FOR CONTINUITY OF PATIENT CARE. PATIENT STABLE.
--- NOTE | 2021-09-27 19:26 | NUR ---
RECEIVED ENDORSEMENT FROM DAY SHIFT FOR CONTINUITY OF CARE. PATIENT IS AWAKE AND STABLE. A&OX4. VERBALLY RESPONSIVE AND ABLE TO COMMUNICATE NEEDS. PATIENT DENIES PAIN AT THIS TIME. RESPIRATIONS EVEN AND UNLABORED NO APPARENT S/SX OF ACUTE DISTRESS. IV SITE IS NOT PRESENT. WHITE COMMUNICATION BOARD AND POC UPDATED. ALL SAFETY MEASURES IN PLACE. CALL LIGHT WITHIN REACH. WILL CONTINUE TO MONITOR.
--- NOTE | 2021-09-27 19:40 | NUR ---
PATIENT IS REQUESTING TO LEAVE AGAINST MEDICAL ADVICE. EDUCATED PATIENT ON AMA. PATIENT SIGNED AMA FORM. WILL CONTACT DR. READ.
--- NOTE | 2021-09-27 19:45 | NUR ---
DR. READ NOTIFIED REGARDING AMA. PATIENT IS STABLE AND LEFT THE UNIT.
== END 2021-09-27 19:45 | disposition left against medical advice (07) | DRG 439 ==
LOC: MED 17:26 → MMU 20:27 → MTU 21:20
PROVIDERS: ADMIT Hospitalist; ATTEND Hospitalist
DX: K85.90 Acute pancreatitis without necrosis or infection, unspecified (principal); E87.1 Hypo-osmolality and hyponatremia; Z53.29 Procedure and treatment not carried out because of patient's decision for other reasons; F10.10 Alcohol abuse, uncomplicated; Z20.822 Contact with and (suspected) exposure to COVID-19; E87.6 Hypokalemia; D50.9 Iron deficiency anemia, unspecified; Z71.41 Alcohol abuse counseling and surveillance of alcoholic; Z79.899 Other long term (current) drug therapy; Z87.11 Personal history of peptic ulcer disease; Z82.49 Family history of ischemic heart disease and other diseases of the circulatory system; Z83.42 Family history of familial hypercholesterolemia
CPT/HCPCS: 36415; 71045; 76705; 80048; 80053; 80305; 83540; 83690; 83735; 84100; 85025; 86886; 86900; 86901; 87081; 93005; 96365; 96366; 96368; 96375; 99285; C9113; G0482; J2060; J2270; J2405; J3475; J3480; J3490; J7030; Q0092

== ENCOUNTER 2021-09-30 02:03 | Inpatient (IN) | payer SELFPAY ==
[~2021-09-30] VITALS: Ht 172.7 cm; Wt 72.6 kg
[2021-09-30] MEDS: NACL 0.9% 1,000 ML IV SCH ×3 (01:40→16:41)
[~2021-09-30 02:03] MED LIST changes: -CLAR500T3 PO; -DOCU-299 PO; -FAMO-92 PO; -FOLI1TAB90 PO; -LIB25 PO; -LORA-476 PO; -OMEP20EC10 PO; -ONDA-188 SL
[2021-09-30 02:22] VITALS: BP 141/90
--- NOTE | 2021-09-30 02:22 | NUR ---
TO BED AMBULATORY
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
[2021-09-30] MEDS ORDERED: ALUMINUM HYD/MAG/SIMETHICONE 30 ML UDC PO ONE (03:00)
[2021-09-30] MEDS ORDERED: ONDANSETRON 4 MG ODT PO ONE (03:00)
[2021-09-30 03:50] LABS: BASOPHILS % (AUTO) 0.5 % (0.0-2.0); EOSINOPHILS # (AUTO) 0.2 K/uL (0-0.4); EOSINOPHILS % (AUTO) 4.5 % (0.0-4.0); HEMATOCRIT 28.3 % (36-52); HEMOGLOBIN 8.8 g/dL (12.0-18.0); LYMPHOCYTES % (AUTO) 24.7 % (20.5-51.1); MEAN CORPUSCULAR HEMOGLOBIN 22 pg (27-31); MEAN CORPUSCULAR HGB CONC 31 g/dL (33-37); MEAN CORPUSCULAR VOLUME 69.1 fL (80-94); MONOCYTES # (AUTO) 0.5 K/uL (0.8-1.0); MONOCYTES % (AUTO) 11.8 % (1.7-9.3); NEUTROPHILS # (AUTO) 2.5 K/uL (1.8-7.7); NEUTROPHILS % (AUTO) 58.5 % (42.2-75.2); PLATELET COUNT (AUTO) 202 K/uL (140-450); RED CELL DISTRIBUTION WIDTH 24.4 % (11.6-13.7); WHITE BLOOD COUNT (AUTO) 4.2 K/uL (4.8-10.8)
[2021-09-30 03:57] LABS: ALBUMIN 3.5 g/dL (3.4-5.0); ANION GAP 10.7 (8-16); CARBON DIOXIDE 26.3 mmol/L (21-32); CREATININE 0.6 mg/dL (0.6-1.3); TOTAL BILIRUBIN 0.5 mg/dL (0.0-1.0)
--- NOTE | 2021-09-30 04:00 | NUR ---
DIRECTOR EXPERIMENTAL MEDICINE REPORTS THAT PT KEEPS GOING TO HIS CAR FOR UNKNOWN REASON.
[2021-09-30] MEDS ORDERED: LACTATED RINGERS 1,000 ML IV ONE (04:35)
[2021-09-30] MEDS ORDERED: POTASSIUM CHLORIDE 10 MEQ TABER PO ONE ×2 (04:45→06:25)
--- NOTE | 2021-09-30 05:32 | NUR ---
PT LYING IN BED WITH EYES OPEN. EQUAL RISE AND FALL OF CHEST. VS ARE STABLE. NO ACUTE DISTRESS AT THIS TIME. WARM BLANKETS PROVIDED FOR COMFORT. WILL CONTINUE TO MONITOR.
--- NOTE | 2021-09-30 06:28 | NUR ---
PT LYING IN BED WITH EYES OPEN. DENIES ANY NEEDS AT THIS TIME. VS ARE STABLE. EQUAL RISE AND FALL OF CHEST. WILL CONTINUE TO MONITOR PT.
--- NOTE | 2021-09-30 07:16 | NUR ---
REPORT GIVEN TO REMY CARROLL.
--- NOTE | 2021-09-30 07:16 | NUR ---
Report and continuation of care received from REMY Brower
--- NOTE | 2021-09-30 07:43 | NUR ---
Spoke with sister who states "he drinks a lot, left hospital a few days ago and this is the second time this has occurred where he will leave hospital and begin having visual hallucinations for a few days before becoming back to normal." Sister reports "he began having hallucinations again on Friday." Reports patient taking Potassium pills. Denies other PMH/Meds/Sx/allergies.
--- NOTE | 2021-09-30 07:50 | NUR ---
Patient with both eyes closed in semi-fowlers position. Patient awaken and states he is comfortable; denies nausea, pain. All pt needs met. ekg monitor tech and IVF continued. Bed locked in lowest position, side rails x 1.
[2021-09-30] MEDS ORDERED: ZOLPIDEM 5 MG TAB PO PRN (08:50)
[2021-09-30] MEDS ORDERED: ACETAMINOPHEN 325 MG TAB PO PRN (08:50)
[2021-09-30] MEDS ORDERED: guaiFENesin DM 200/20 MG-10 ML 10 ML UDC PO PRN (08:50)
[2021-09-30] MEDS ORDERED: DOCUSATE SODIUM 100 MG GELCAP PO PRN (08:50)
[2021-09-30] MEDS ORDERED: ONDANSETRON 4 MG/2 ML VIAL IM/IVP PRN (08:50)
[2021-09-30] MEDS ORDERED: POTASSIUM CHLORIDE 10 MEQ TABER PO PRN (08:50)
[2021-09-30] MEDS ORDERED: HYDROcodone/APAP 7.5/325 MG 1 TAB PO PRN (08:50)
--- NOTE | 2021-09-30 09:20 | NUR ---
RT at bedside for EKG
--- NOTE | 2021-09-30 09:27 | NUR ---
Urinal at bedside
[2021-09-30] MEDS: PANTOPRAZOLE 40 MG TABEC PO SCH (09:38)
[2021-09-30 09:40] LABS: CHOL/HDL RATIO 2.6 (1-4.5); FREE T4 (FREE THYROXINE) 0.94 ng/dL (0.76-1.46); MAGNESIUM 2.1 mg/dL (1.8-2.4); PHOSPHORUS 2.5 mg/dL (2.5-4.9); THYROID STIMULATING HORMONE 0.47 uIU/mL (0.34-3.74)
[2021-09-30 09:59] LABS: PROTHROMBIN TIME 10.3 secs (10.8-13.4)
[2021-09-30 10:08] LABS: APPEARANCE,URINE CLEAR (CLEAR); BILIRUBIN,URINE NEGATIVE (NEGATIVE); BLOOD, URINE NEGATIVE (NEGATIVE); COLOR,URINE YELLOW (YELLOW); LEUKOCYTE ESTERASE ,URINE NEGATIVE (NEGATIVE); NITRITE, URINE NEGATIVE (NEGATIVE); UGLUCOSE NEGATIVE (NEGATIVE)
--- NOTE | 2021-09-30 10:15 | NUR ---
MORIS walked to lab, handed to CPT Rosalie
--- NOTE | 2021-09-30 11:46 | NUR ---
Patient resting with both eyes closed with IVF continued. Caridac monitor in place. Bed locked in lowest position, side rails x 2. VSS.
--- NOTE | 2021-09-30 13:23 | NUR ---
Pt resting in position of comfort with eyes open on phone. environmental monitoring specialist in place. VSS. Respirations even/unlabored. Denies nausea, pain. Bed locked in lowest position, side rails x 1.
--- NOTE | 2021-09-30 14:26 | NUR ---
Pt asleep in semi-fowlers. IVF continued. Bed locked in lowest position, side rails x 1.
--- NOTE | 2021-09-30 14:48 | NUR ---
Patient disconnected from clinical research monitor, IV pump, and transported to CT by bolivar.
--- NOTE | 2021-09-30 15:03 | NUR ---
patient returned from CT and placed back onto cardiac sonographer and IVF.
--- NOTE | 2021-09-30 16:21 | NUR ---
Patient awake in semi-fowlers position. States he feels good, denies visual or auditory hallucinations at this time. All pt needs met. cardiac monitor in place. VSS; RR even/unlabored.
--- NOTE | 2021-09-30 16:40 | NUR ---
Brother called by phone and given status update.
--- NOTE | 2021-09-30 17:40 | NUR ---
Pt states slight nausea requesting Zofran at this time. PRN orders to be administered.
--- NOTE | 2021-09-30 19:28 | NUR ---
Report and transfer of care endorsed to REMY Suazo
--- NOTE | 2021-09-30 20:05 | NUR ---
pt sleeping in bed in a semifowlers position. both side rails up for safety. vss. will continue to monitor
--- NOTE | 2021-09-30 20:05 | NUR ---
Note zakiya in EDM - 09/30/21 at 2020 by [email or web address] pt asleeping in bed. both side raild up for safety
--- NOTE | 2021-09-30 21:40 | NUR ---
PT SITTING UP IN BED. ASKED PATIENT PAIN RATING AND HE SAID NONE. PT SAID HE IS FEELING MUCH BETTER.
--- NOTE | 2021-09-30 23:33 | NUR ---
PT SLEEPING IN BED. BOTH SIDE RAILS UP FOR SAFETY. CHECKES IV FLUIDS. FLUIDS STILL FLOWING AT GIVEN RATE. NS SNF DONE. ALL VSS NORMAL.
--- NOTE | 2021-10-01 06:18 | NUR ---
PT SLEEPING WITH HOB SLIGHTLY ELEVATED. X2 SIDE RAILS UP FOR SAFETY. ALL VSS. BED LOWERED TO LOWEST SETTING.
[2021-10-01] MEDS: NACL 0.9% 1,000 ML IV SCH ×2 (07:20→11:45)
--- NOTE | 2021-10-01 07:22 | NUR ---
REPORT RECEIVED FROM LONNY FINK FOR CONTINUITY OF CARE.
--- NOTE | 2021-10-01 07:22 | NUR ---
Pt report given to helio. Transfer of care at this time.
[2021-10-01 07:35] LABS: BASOPHILS % (AUTO) 0.7 % (0.0-2.0); EOSINOPHILS # (AUTO) 0.2 K/uL (0-0.4); EOSINOPHILS % (AUTO) 5.4 % (0.0-4.0); HEMATOCRIT 26.8 % (36-52); HEMOGLOBIN 8.3 g/dL (12.0-18.0); LYMPHOCYTES # (AUTO) 0.9 K/uL (2.0-11.5); LYMPHOCYTES % (AUTO) 25.5 % (20.5-51.1); MEAN CORPUSCULAR HEMOGLOBIN 22 pg (27-31); MEAN CORPUSCULAR HGB CONC 31 g/dL (33-37); MEAN CORPUSCULAR VOLUME 70.4 fL (80-94); MONOCYTES # (AUTO) 0.4 K/uL (0.8-1.0); MONOCYTES % (AUTO) 11.5 % (1.7-9.3); NEUTROPHILS # (AUTO) 1.9 K/uL (1.8-7.7); NEUTROPHILS % (AUTO) 56.9 % (42.2-75.2); PLATELET COUNT (AUTO) 192 K/uL (140-450); RED CELL DISTRIBUTION WIDTH 24.8 % (11.6-13.7); WHITE BLOOD COUNT (AUTO) 3.3 K/uL (4.8-10.8)
[2021-10-01 08:06] LABS: T4 (THYROXINE) 7.3 ug/dL (4.5-12.0)
--- NOTE | 2021-10-01 08:15 | NUR ---
RECEIVED REPORT AND PATIENT FROM ER NURSE PATIENT WAS ADMITTED DUE TO HAND PAIN, DX: PANCARDITIS,, PATIENT IS AX4 BREATHING EVEN UNLABORED, ON ROOM AIR, HAS A LEFT AC 20G, NS RUNNING MD ORDER, SKIN INTACT, DENIES ANY PAIN AT THIS TIME, ALL SAFETY MEASURES ON PLACE, CALLS LIGHT WITHIN REACH Addendum: 10/01/21 at 1328 by Keisha Gallego RN RN ADMISSION DONE BY DIRECTOR NURSE GILBERT
--- NOTE | 2021-10-01 08:17 | NUR ---
Patient will be admitted to care of DR BASS. Admited to MED SURG. Will go to [id number]. Belongings list completed. Report to NOHEMI ALBERTO.
[2021-10-01 08:56] LABS: CARBON DIOXIDE 23.4 mmol/L (21-32); CREATININE 0.6 mg/dL (0.6-1.3); POTASSIUM 3.4 mmol/L (3.5-5.1)
[2021-10-01] MEDS: PANTOPRAZOLE 40 MG TABEC PO SCH (09:07)
--- NOTE | 2021-10-01 09:54 | NUR ---
PATIENT IN ED NO SOD NOTED, NO COMPLAINS, GOT MORNING MEDICATION TOLERATED WELL ALL SAFETY MEASURES OM PLACE, CALLS LIGHT WITHIN REACH
[2021-10-01 10:00] VITALS: BP 117/74
--- NOTE | 2021-10-01 10:39 | NUR ---
PATIENT HAS BEEN SCREENED AND CATEGORIZED LOW NUTRITION RISK. PATIENT WILL BE SEEN WITHIN 7 DAYS OF ADMISSION. 10/06/[address]
[2021-10-01 11:40] VITALS: BP 117/74
--- NOTE | 2021-10-01 13:12 | NUR ---
PATIENT IN BED NO COMPLAINS, NO SOD NOTED, ALL SAFETY MEASURES ON PLACE, ALLS LIGHT WITHIN REACH
--- NOTE | 2021-10-01 13:24 | NUR ---
DC PLANNING: PATIENT ADMITTED TO THE ED WITH C/O PAIN TO HIS RIGHT HAND, AND NAUSEA. HE WAS ADMITTED A FEW DAYS AGO FOR PANCREATITIS AND LEFT AMA. PATIENT HAS A H/O ETOH ABUSE, LFT'S ELEVATED. STARTED ON IVF'S AND K+ SUPPLEMENTS, K+ ON ADMISSION 135. DC PLAN IS TO RETURN HOME WHEN CLINICALLY STABLE, CM WILL FOLLOW FOR NEEDS. Addendum: 10/01/21 at 1624 by Marium Groves CM DC PLANNING: CORRECTION TO ABOVE NOTE, K+ ON ADMISSION 3.0.
--- NOTE | 2021-10-01 13:25 | NUR ---
PATIENT GOT DISCHARGE PAKET AND DISCHARGE EDUCATION, IV REMOVED SKIN INTACT, BLEEDING CONTROLLED, ID BAND REMOVED,
--- NOTE | 2021-10-01 13:45 | NUR ---
PATIENT LEFT TO THE FRONT LOBBY
== END 2021-10-01 13:45 | disposition home or self-care (01) | DRG 438 ==
LOC: MED 02:03 → MTU 06:18
PROVIDERS: ADMIT Family Medicine; ATTEND Family Medicine
DX: K85.90 Acute pancreatitis without necrosis or infection, unspecified (principal); G93.41 Metabolic encephalopathy; E87.1 Hypo-osmolality and hyponatremia; E87.6 Hypokalemia; E78.2 Mixed hyperlipidemia; D64.9 Anemia, unspecified; F10.10 Alcohol abuse, uncomplicated; Y90.9 Presence of alcohol in blood, level not specified; R74.01 Elevation of levels of liver transaminase levels; Z87.11 Personal history of peptic ulcer disease; Z79.899 Other long term (current) drug therapy
CPT/HCPCS: 36415; 71045; 73130; 80048; 80053; 81003; 82150; 83036; 83690; 83735; 83880; 84100; 84436; 84439; 84443; 84479; 85025; 85610; 85730; 96360; 99285; J2405; Q0092; Q0162

== ENCOUNTER 2021-12-26 05:20 | Emergency (ER) | payer SELFPAY ==
[~2021-12-26] VITALS: Ht 172.7 cm; Wt 72.6 kg
[~2021-12-26 05:20] MED LIST changes: -AMOX500C25 PO; -THIA-34 PO
[2021-12-26 05:27] VITALS: BP 150/89
--- NOTE | 2021-12-26 05:31 | NUR ---
Ambulatory to bed 8.
--- NOTE | 2021-12-26 05:42 | NUR ---
31 YO/M BIB SELF W C/O FEELING WEAK, NAUSEA, SLIGHT DIZZYNESS, ABDOMINAL PAIN 5/10 ACHE LIKE NON-RAD X1 WEEK S/P DRINKING ALCOHOL THIS ENTIRE PAST WEEK, +X3 EPISODES OF VOMIT. PT DENIES ANY FEVER, CHILLS, DIAHRREA, CONSTIPATION, BLOOD IN EMESIS OR OTHER SYMPTOMS. PT LAYING IN BED LOCKED IN LOWEST POSITION. BREATHING EVEN AND UNLABORED. VSS. NAD NOTED, WILL CONTINUE TO MONITOR. PMH:DENIES ALLERGIES: DENIES
--- NOTE | 2021-12-26 05:53 | NUR ---
PT PROVIDED W WATER. NO VOMITING AT THIS TIME.
[2021-12-26] MEDS ORDERED: NACL 0.9% 3,000 ML IV ONE (06:00)
--- NOTE | 2021-12-26 06:02 | NUR ---
VERIFIED NS BOLUS OF 3L W ERMD. PER ERMD CANCEL 3L, ONLY BOLUS 2L NS.
[2021-12-26] MEDS ORDERED: NACL 0.9% 2,000 ML IV ONE (06:05)
--- NOTE | 2021-12-26 06:08 | NUR ---
BLOOD SAMPLES COLLECTED AND HANDED TO ANGELA FROM LAB.
[2021-12-26 06:16] LABS: BASOPHILS % (AUTO) 0.8 % (0.0-2.0); EOSINOPHILS % (AUTO) 0.2 % (0.0-4.0); HEMATOCRIT 36.1 % (36-52); HEMOGLOBIN 11.3 g/dL (12.0-18.0); LYMPHOCYTES # (AUTO) 0.5 K/uL (2.0-11.5); LYMPHOCYTES % (AUTO) 12.2 % (20.5-51.1); MEAN CORPUSCULAR HEMOGLOBIN 20 pg (27-31); MEAN CORPUSCULAR HGB CONC 31 g/dL (33-37); MONOCYTES # (AUTO) 0.3 K/uL (0.8-1.0); MONOCYTES % (AUTO) 6.7 % (1.7-9.3); NEUTROPHILS % (AUTO) 80.1 % (42.2-75.2); PLATELET COUNT (AUTO) 117 K/uL (140-450); RED BLOOD CELL COUNT(AUTO) 5.64 MIL/uL (4.20-6.10); WHITE BLOOD COUNT (AUTO) 3.8 K/uL (4.8-10.8)
[2021-12-26] MEDS ORDERED: KETOROLAC 30 MG/ML VIAL IVP ONE (06:35)
[2021-12-26 06:40] LABS: ALBUMIN 4.2 g/dL (3.4-5.0); ANION GAP 22.2 (8-16); CARBON DIOXIDE 27.7 mmol/L (21-32); CREATININE 0.8 mg/dL (0.6-1.3); POTASSIUM 3.9 mmol/L (3.5-5.1); TOTAL BILIRUBIN 0.5 mg/dL (0.0-1.0)
[2021-12-26] MEDS ORDERED: LIB25 PO (07:02)
--- NOTE | 2021-12-26 07:18 | NUR ---
Damaris sigala in [facility] - 12/26/21 at 0720 by TIO Pt report given to REMY DUNHAM. Transfer of care at this time.
--- NOTE | 2021-12-26 07:18 | NUR ---
Pt report given to DANAE DUNHAM. Transfer of care at this time.
--- NOTE | 2021-12-26 07:30 | NUR ---
DR. ROSE REEVALUATING PATIENT AT BEDSIDE.
[2021-12-26] MEDS ORDERED: ONDANSETRON 4 MG/2 ML VIAL IVP ONE (07:35)
[2021-12-26] MEDS ORDERED: DICYCLOMINE HCL LIQUID 20 MG, ALUMINUM HYD/MAG/SIMETHICONE 30 ML, LIDOCAINE VISCOUS 2% ... PO ONE ×3 (07:35)
[2021-12-26] MEDS ORDERED: DICYCLOMINE HCL LIQUID 10 MG/5 ML UDC ONE (07:36)
[2021-12-26] MEDS ORDERED: ALUMINUM HYD/MAG/SIMETHICONE 30 ML UDC ONE (07:36)
[2021-12-26] MEDS ORDERED: ONDA-188 SL (07:36)
[2021-12-26] MEDS ORDERED: PROCHLORPERAZINE 10 MG/2 ML VIAL IVP ONE (08:30)
[2021-12-26] MEDS ORDERED: PROCHLORPERAZINE 10 MG/2 ML VIAL IM ONE (08:35)
[2021-12-26 08:50] VITALS: BP 114/66
--- NOTE | 2021-12-26 08:50 | NUR ---
Patient discharged with v/s stable. Written and verbal after care instructions ABOUT ALCOHOL ABUSE AND DEPENDENCE given and explained. Patient alert, oriented and verbalized understanding of instructions. Ambulatory with steady gait. All questions addressed prior to discharge. ID band removed. Patient advised to follow up with PMD. Rx of LIBRIUM AND ZOFRAN given.
--- NOTE | 2021-12-26 08:51 | NUR ---
Chart checked and completed. The patient's care was reviewed and supervised by Chapis Castro RN.
== END 2021-12-26 08:50 | disposition home or self-care (01) ==
LOC: MED 05:20
DX: K29.20 Alcoholic gastritis without bleeding (principal); F10.129 Alcohol abuse with intoxication, unspecified; Z79.899 Other long term (current) drug therapy
CPT/HCPCS: 36415; 80053; 85025; 96361; 96372; 96374; 96375; 99285; G0482; J0780; J1885; J2405; J7030

== ENCOUNTER 2021-12-28 06:00 | Emergency (ER) | payer SELFPAY ==
[~2021-12-28] VITALS: Ht 170.2 cm; Wt 72.6 kg
[~2021-12-28 06:00] MED LIST changes: +LIB25 PO; +ONDA-188 SL
[2021-12-28 06:08] VITALS: BP 127/64
--- NOTE | 2021-12-28 06:24 | NUR ---
PT TAKEN TO ER BED 09
--- NOTE | 2021-12-28 06:50 | NUR ---
31 yo m bib self with of 9/10 llq and epigastric pain x2 hrs. +nausea. denies v/d. denies taking medication for pain. abd is flat. bowel sounds active x4 quads. denies fever and chills. pt has hx of pancreatitis states feels like before. denies problems with BM and no urinary changes. hx:pancreatitis nka
[2021-12-28] MEDS ORDERED: ALUMINUM HYD/MAG/SIMETHICONE 30 ML UDC ONE ×2 (06:54→06:55)
[2021-12-28] MEDS ORDERED: DICYCLOMINE HCL LIQUID 10 MG/5 ML UDC ONE ×2 (06:55)
[2021-12-28] MEDS: DICYCLOMINE HCL LIQUID 20 MG, ALUMINUM HYD/MAG/SIMETHICONE 30 ML, LIDOCAINE VISCOUS 2% ... PO ONE ×3 (07:20)
[2021-12-28] MEDS: ONDANSETRON 4 MG/2 ML VIAL IVP ONE (07:20)
[2021-12-28] MEDS: NACL 0.9% 2,000 ML IV ONE (07:21)
[2021-12-28] MEDS: LORazepam 2 MG/ML VIAL IVP ONE (07:21)
--- NOTE | 2021-12-28 07:24 | NUR ---
labs collected and given to
--- NOTE | 2021-12-28 07:25 | NUR ---
REPORT RECEIVED FROM REMY HOGAN FOR TRANSFER OF CARE.
--- NOTE | 2021-12-28 07:25 | NUR ---
report given to rocío tim. transfer of care at this time.
--- NOTE | 2021-12-28 07:29 | NUR ---
Damaris sigala in [facility] - 12/28/21 at 0729 by [email or web address] REPORT RECEIVED FROM REMY HOGAN FOR TRANSFER OF CARE.
--- NOTE | 2021-12-28 08:03 | NUR ---
BLOOD COLLECTED AND WALKED TO LAB. HANDED TO LILIAM
[2021-12-28 08:16] LABS: BASOPHILS % (AUTO) 0.2 % (0.0-2.0); EOSINOPHILS # (AUTO) 0.1 K/uL (0-0.4); EOSINOPHILS % (AUTO) 3.8 % (0.0-4.0); HEMATOCRIT 28.7 % (36-52); HEMOGLOBIN 8.6 g/dL (12.0-18.0); LYMPHOCYTES # (AUTO) 0.6 K/uL (2.0-11.5); LYMPHOCYTES % (AUTO) 20.6 % (20.5-51.1); MEAN CORPUSCULAR HEMOGLOBIN 20 pg (27-31); MEAN CORPUSCULAR HGB CONC 30 g/dL (33-37); MEAN CORPUSCULAR VOLUME 66.9 fL (80-94); MONOCYTES # (AUTO) 0.3 K/uL (0.8-1.0); MONOCYTES % (AUTO) 10.8 % (1.7-9.3); NEUTROPHILS % (AUTO) 64.6 % (42.2-75.2); PLATELET COUNT (AUTO) 64 K/uL (140-450); RED BLOOD CELL COUNT(AUTO) 4.29 MIL/uL (4.20-6.10); RED CELL DISTRIBUTION WIDTH 21.5 % (11.6-13.7); WHITE BLOOD COUNT (AUTO) 3.1 K/uL (4.8-10.8)
[2021-12-28 08:39] LABS: ALBUMIN 3.9 g/dL (3.4-5.0); ANION GAP 11.5 (8-16); CARBON DIOXIDE 31.4 mmol/L (21-32); CREATININE 0.8 mg/dL (0.6-1.3); TOTAL BILIRUBIN 0.5 mg/dL (0.0-1.0)
[2021-12-28 08:44] LABS: POTASSIUM 2.9 mmol/L (3.5-5.1)
--- NOTE | 2021-12-28 09:04 | NUR ---
URINE SAMPLE WALKED TO LAB AND COLLECTED BY [employer].
[2021-12-28] MEDS: POTASSIUM CHLORIDE 10 MEQ TABER PO ONE (09:10)
[2021-12-28 10:07] LABS: APPEARANCE,URINE CLEAR (CLEAR); BILIRUBIN,URINE NEGATIVE (NEGATIVE); BLOOD, URINE NEGATIVE (NEGATIVE); COLOR,URINE YELLOW (YELLOW); LEUKOCYTE ESTERASE ,URINE NEGATIVE (NEGATIVE); NITRITE, URINE NEGATIVE (NEGATIVE); PH,URINE 7.5 (5.0-9.0); UGLUCOSE NEGATIVE (NEGATIVE)
--- NOTE | 2021-12-28 10:11 | NUR ---
PT AMBULATED TO RESTROOM WITH STEADY GAIT.
[2021-12-28] MEDS ORDERED: MAG-27 PO (10:15)
[2021-12-28] MEDS ORDERED: LORA-476 PO (10:15)
[2021-12-28] MEDS ORDERED: ONDA-188 SL (10:15)
[2021-12-28] MEDS: LORazepam 1 MG TAB PO ONE (10:48)
[2021-12-28 10:49] VITALS: BP 123/82
--- NOTE | 2021-12-28 10:50 | NUR ---
Patient discharged with v/s stable. Written and verbal after care instructions given and explained. Patient alert, oriented and verbalized understanding of instructions. Ambulatory with steady gait. All questions addressed prior to discharge. ID band removed. Patient advised to follow up with PMD. Rx of ATIVAN, MYLANTA, AND ZOFRAN given. Patient educated on indication of medication including possible reaction and side effects. Opportunity to ask questions provided and answered.
== END 2021-12-28 10:50 | disposition home or self-care (01) ==
LOC: MED 06:00
DX: R11.2 Nausea with vomiting, unspecified (principal); R10.9 Unspecified abdominal pain; F41.9 Anxiety disorder, unspecified; F17.290 Nicotine dependence, other tobacco product, uncomplicated; Z79.899 Other long term (current) drug therapy
CPT/HCPCS: 36415; 80053; 81002; 83690; 85025; 96361; 96374; 96375; 99284; J2060; J2405; J7030

== ENCOUNTER 2022-04-11 06:15 | Inpatient (IN) | payer SELFPAY ==
[~2022-04-11] VITALS: Ht 170.2 cm; Wt 71.7 kg
[~2022-04-11 06:15] MED LIST changes: +LORA-476 PO; +MAG-27 PO
[2022-04-11 06:19] VITALS: BP 130/102
[2022-04-11] MEDS ORDERED: ONDANSETRON 4 MG/2 ML VIAL IM ONE (06:45)
[2022-04-11] MEDS ORDERED: PANTOPRAZOLE 40 MG INJ VIAL IVP ONE (06:45)
[2022-04-11] MEDS ORDERED: NACL 0.9% 1,000 ML IV SCH (06:45)
[2022-04-11] MEDS ORDERED: MORPHINE SULFATE 4 MG/ML SYR IVP ONE (06:45)
[2022-04-11 07:25] LABS: PROTHROMBIN TIME 9.8 secs (10.8-13.4)
[2022-04-11 07:26] LABS: ANION GAP 14.4 (8-16); CARBON DIOXIDE 29.8 mmol/L (21-32); CREATININE 0.8 mg/dL (0.6-1.3); POTASSIUM 3.2 mmol/L (3.5-5.1); TOTAL BILIRUBIN 0.4 mg/dL (0.0-1.0)
[2022-04-11 07:27] LABS: EOSINOPHILS % (AUTO) 0.1 % (0.0-4.0); HEMATOCRIT 37.4 % (36-52); HEMOGLOBIN 12.1 g/dL (12.0-18.0); LYMPHOCYTES # (AUTO) 1.1 K/uL (2.0-11.5); LYMPHOCYTES % (AUTO) 24.6 % (20.5-51.1); MEAN CORPUSCULAR HEMOGLOBIN 23 pg (27-31); MEAN CORPUSCULAR HGB CONC 32 g/dL (33-37); MEAN CORPUSCULAR VOLUME 70.3 fL (80-94); MONOCYTES # (AUTO) 0.1 K/uL (0.8-1.0); MONOCYTES % (AUTO) 3.2 % (1.7-9.3); NEUTROPHILS # (AUTO) 3.2 K/uL (1.8-7.7); NEUTROPHILS % (AUTO) 71.1 % (42.2-75.2); PLATELET COUNT (AUTO) 342 K/uL (140-450); RED BLOOD CELL COUNT(AUTO) 5.31 MIL/uL (4.20-6.10); RED CELL DISTRIBUTION WIDTH 20.6 % (11.6-13.7); WHITE BLOOD COUNT (AUTO) 4.5 K/uL (4.8-10.8)
[2022-04-11 07:44] LABS: LIPASE 237 U/L (73-393)
[2022-04-11] MEDS ORDERED: HYDROcodone/APAP 5/325 MG 1 TAB TAB PO PRN (08:00)
[2022-04-11] MEDS ORDERED: ONDANSETRON 4 MG/2 ML VIAL IVP PRN (08:00)
[2022-04-11] MEDS ORDERED: POTASSIUM CHLORIDE 10 MEQ TABER PO PRN (08:00)
[2022-04-11] MEDS ORDERED: ACETAMINOPHEN 325 MG TAB PO PRN (08:00)
[2022-04-11] MEDS ORDERED: DOCUSATE SODIUM 100 MG GELCAP PO PRN (08:00)
[2022-04-11] MEDS ORDERED: MAG SULF 2000 MG/WATER PREMIX 50 ML IV PRN (08:00)
[2022-04-11] MEDS ORDERED: ZOLPIDEM 5 MG TAB PO PRN (08:00)
[2022-04-11] MEDS ORDERED: MORPHINE SULFATE 2 MG/ML SYR IVP PRN (08:00)
[2022-04-11] MEDS ORDERED: LORazepam 2 MG/ML VIAL IM/IVP PRN (08:00)
[2022-04-11] MEDS ORDERED: SODIUM PHOS / POTASSIUM PHOS 1 PKT PDR PO PRN (08:00)
[2022-04-11 08:24] LABS: AMYLASE 84 U/L (25-115); LIPASE 238 U/L (73-393); PHOSPHORUS 3.8 mg/dL (2.5-4.9)
[2022-04-11] MEDS: NACL 0.9% 1,000 ML IV SCH ×2 (08:37→17:18)
[2022-04-11 08:50] LABS: PROTHROMBIN TIME 10.2 secs (10.8-13.4)
[2022-04-11 09:00] LABS: APPEARANCE,URINE CLEAR (CLEAR); BILIRUBIN,URINE NEGATIVE (NEGATIVE); BLOOD, URINE TRACE-I (NEGATIVE); COLOR,URINE YELLOW (YELLOW); LEUKOCYTE ESTERASE ,URINE NEGATIVE (NEGATIVE); NITRITE, URINE NEGATIVE (NEGATIVE); UGLUCOSE NEGATIVE (NEGATIVE)
[2022-04-11 09:10] LABS: OTHER CASTS, URINE None Seen /LPF (None Seen); RBC,URINE 0-5 /HPF (0-5); WBC,URINE 0-5 /HPF (0-5)
[2022-04-11 09:11] LABS: BARBITURATE, URINE NEGATIVE ng/ml (NEG <=200); BENZODIAZEPINE, URINE NEGATIVE ng/mL (NEG <=200); CANNABINOID, URINE NEGATIVE ng/mL (NEG <=50); COCAINE, URINE NEGATIVE ng/mL (NEG <=300); OPIATE, URINE POSITIVE ng/mL (NEG <=2000); PHENCYCLIDINE SCREEN,URINE NEGATIVE ng/mL (NEG <=25)
[2022-04-11 09:54] VITALS: BP 122/78
[2022-04-11] MEDS ORDERED: LORazepam 1 MG TAB PO PRN (11:40)
[2022-04-11 12:17] VITALS: BP 118/72
[2022-04-11 16:12] VITALS: BP 126/75
[2022-04-11] MEDS: METOCLOPRAMIDE 10 MG/2 ML INJ VIAL IVP PRN (17:18)
[2022-04-11 20:00] VITALS: BP 122/75
[2022-04-11] MEDS: PANTOPRAZOLE 40 MG INJ VIAL IVP SCH (20:29)
[2022-04-12] VITALS: BP 102/75
[2022-04-12] MEDS: METOCLOPRAMIDE 10 MG/2 ML INJ VIAL IVP PRN (00:02)
[2022-04-12] MEDS: NACL 0.9% 1,000 ML IV SCH ×3 (02:41→13:47)
[2022-04-12 04:00] VITALS: BP 113/74
[2022-04-12 06:58] LABS: BASOPHILS % (AUTO) 0.4 % (0.0-2.0); EOSINOPHILS % (AUTO) 0.2 % (0.0-4.0); HEMATOCRIT 32.8 % (36-52); HEMOGLOBIN 10.4 g/dL (12.0-18.0); LYMPHOCYTES # (AUTO) 0.6 K/uL (2.0-11.5); LYMPHOCYTES % (AUTO) 11.7 % (20.5-51.1); MEAN CORPUSCULAR HEMOGLOBIN 23 pg (27-31); MEAN CORPUSCULAR HGB CONC 32 g/dL (33-37); MEAN CORPUSCULAR VOLUME 71.3 fL (80-94); MONOCYTES # (AUTO) 0.3 K/uL (0.8-1.0); MONOCYTES % (AUTO) 5.3 % (1.7-9.3); NEUTROPHILS % (AUTO) 82.4 % (42.2-75.2); PLATELET COUNT (AUTO) 212 K/uL (140-450); RED CELL DISTRIBUTION WIDTH 21.6 % (11.6-13.7); WHITE BLOOD COUNT (AUTO) 4.8 K/uL (4.8-10.8)
[2022-04-12 07:14] LABS: ALBUMIN 3.3 g/dL (3.4-5.0); ANION GAP 14.5 (8-16); CREATININE 0.6 mg/dL (0.6-1.3); MAGNESIUM 1.5 mg/dL (1.8-2.4); POTASSIUM 3.5 mmol/L (3.5-5.1); TOTAL BILIRUBIN 0.8 mg/dL (0.0-1.0)
[2022-04-12 08:00] VITALS: BP 122/75
[2022-04-12] MEDS: PANTOPRAZOLE 40 MG INJ VIAL IVP SCH ×2 (09:19→20:56)
[2022-04-12 12:00] VITALS: BP 116/75
[2022-04-12] MEDS ORDERED: MIDAZOLAM 5 MG/5 ML VIAL ONE (15:21)
[2022-04-12] MEDS ORDERED: diphenhydrAMINE 50 MG/ML VIAL ONE (15:21)
[2022-04-12] MEDS ORDERED: fentaNYL citrate 0.05 MG/ML VIAL ONE (15:21)
[2022-04-12] MEDS: MIDAZOLAM 5 MG/5 ML VIAL IV ONE ×2 (15:27→17:10)
[2022-04-12] MEDS: fentaNYL citrate 0.05 MG/ML VIAL IVP ONE ×2 (15:28→17:11)
[2022-04-12] MEDS: METOCLOPRAMIDE 10 MG/2 ML INJ VIAL IVP ONE ×2 (15:34→17:11)
[2022-04-12 16:00] VITALS: BP 102/62
[2022-04-12] MEDS ORDERED: bisacodyL 5 MG TABEC PO SCH ×2 (18:04→23:30)
[2022-04-12] MEDS ORDERED: MAGNESIUM CITRATE 300 ML BTL PO SCH ×2 (18:05→23:30)
[2022-04-12 20:00] VITALS: BP 113/82
[2022-04-13] VITALS: BP 125/80
[2022-04-13] MEDS: NACL 0.9% 1,000 ML IV SCH ×2 (01:45)
[2022-04-13 04:00] VITALS: BP 123/82
[2022-04-13 07:18] LABS: ALBUMIN 3.3 g/dL (3.4-5.0); ANION GAP 11.1 (8-16); CARBON DIOXIDE 25.4 mmol/L (21-32); CREATININE 0.6 mg/dL (0.6-1.3); MAGNESIUM 2.1 mg/dL (1.8-2.4); POTASSIUM 3.5 mmol/L (3.5-5.1); TOTAL BILIRUBIN 0.5 mg/dL (0.0-1.0)
[2022-04-13 07:26] LABS: BASOPHILS % (AUTO) 0.3 % (0.0-2.0); EOSINOPHILS # (AUTO) 0.1 K/uL (0-0.4); EOSINOPHILS % (AUTO) 1.2 % (0.0-4.0); HEMATOCRIT 33.7 % (36-52); HEMOGLOBIN 10.7 g/dL (12.0-18.0); LYMPHOCYTES # (AUTO) 0.5 K/uL (2.0-11.5); LYMPHOCYTES % (AUTO) 10.8 % (20.5-51.1); MEAN CORPUSCULAR HEMOGLOBIN 23 pg (27-31); MEAN CORPUSCULAR HGB CONC 32 g/dL (33-37); MEAN CORPUSCULAR VOLUME 71.6 fL (80-94); MONOCYTES # (AUTO) 0.2 K/uL (0.8-1.0); MONOCYTES % (AUTO) 5.1 % (1.7-9.3); NEUTROPHILS % (AUTO) 82.6 % (42.2-75.2); PLATELET COUNT (AUTO) 184 K/uL (140-450); RED BLOOD CELL COUNT(AUTO) 4.71 MIL/uL (4.20-6.10); RED CELL DISTRIBUTION WIDTH 21.9 % (11.6-13.7); WHITE BLOOD COUNT (AUTO) 4.8 K/uL (4.8-10.8)
[2022-04-13 08:00] VITALS: BP 129/85
[2022-04-13] MEDS ORDERED: SODIUM PHOSPHATE 118 ML ENEM RC SCH (08:00)
[2022-04-13] MEDS: PANTOPRAZOLE 40 MG INJ VIAL IVP SCH (08:16)
[2022-04-13 12:00] VITALS: BP 117/73
[2022-04-13] MEDS ORDERED: PANT40EC PO (14:00)
[2022-04-13 14:09] VITALS: BP 117/73
== END 2022-04-13 14:55 | disposition home or self-care (01) | DRG 381 ==
LOC: MED 06:15 → MTU 07:50
PROVIDERS: ADMIT Family Medicine; ATTEND Family Medicine
PROC: 0DB58ZX Excision of Esophagus, Via Natural or Artificial Opening Endoscopic, Diagnostic (ICD-10-PCS; principal; 2022-04-12 17:30)
DX: K22.70 Barrett's esophagus without dysplasia (principal); E87.1 Hypo-osmolality and hyponatremia; D50.9 Iron deficiency anemia, unspecified; F10.10 Alcohol abuse, uncomplicated; Y90.9 Presence of alcohol in blood, level not specified; K21.9 Gastro-esophageal reflux disease without esophagitis; Z20.822 Contact with and (suspected) exposure to COVID-19; K44.9 Diaphragmatic hernia without obstruction or gangrene; R74.01 Elevation of levels of liver transaminase levels; E87.6 Hypokalemia; Z79.899 Other long term (current) drug therapy; Z87.19 Personal history of other diseases of the digestive system
CPT/HCPCS: 36415; 71045; 80053; 80305; 81001; 82150; 83690; 83735; 84100; 84484; 85025; 85610; 85730; 86886; 86900; 86901; 87081; 93005; 96361; 96372; 96374; 96375; 99285; C9113; G0482; J1200; J2250; J2270; J2405; J2765; J3010; J3475; J7030; Q0092

== ENCOUNTER 2022-05-28 21:37 | Emergency (ER) | payer SELFPAY ==
[~2022-05-28] VITALS: Ht 172.7 cm; Wt 72.6 kg
[~2022-05-28 21:37] MED LIST changes: -LIB25 PO; -LORA-476 PO; -MAG-27 PO; -ONDA-188 SL
[2022-05-28 21:40] VITALS: BP 155/80
--- NOTE | 2022-05-28 21:43 | NUR ---
TO LOBBY A/W BED AMBULATORY
--- NOTE | 2022-05-28 23:04 | NUR ---
PT AMBULATE TO ER BED 11
--- NOTE | 2022-05-28 23:05 | NUR ---
RECEIVED IN BED 11 WITH C/O HEMATEMESIS. PT VOMITED X 4 TODAY. PT IS ANXIOUS AND RESTLESS
--- NOTE | 2022-05-28 23:16 | NUR ---
PT IS ANXIOUS, VOIDING PER URINAL
--- NOTE | 2022-05-28 23:58 | NUR ---
Dr. Valdes examining patient.
[2022-05-29] MEDS ORDERED: NACL 0.9% 1,000 ML IV ONE (00:05)
[2022-05-29] MEDS ORDERED: FAMOTIDINE 20 MG/2 ML VIAL IVP ONE (00:05)
--- NOTE | 2022-05-29 00:10 | NUR ---
IV ESTABLISHED, LABS DRAWN, UA SENT
[2022-05-29 00:18] LABS: BASOPHILS % (AUTO) 0.3 % (0.0-2.0); EOSINOPHILS % (AUTO) 0.2 % (0.0-4.0); HEMATOCRIT 36.5 % (36-52); HEMOGLOBIN 11.8 g/dL (12.0-18.0); LYMPHOCYTES # (AUTO) 1.2 K/uL (2.0-11.5); LYMPHOCYTES % (AUTO) 19.7 % (20.5-51.1); MEAN CORPUSCULAR HEMOGLOBIN 23 pg (27-31); MEAN CORPUSCULAR HGB CONC 32 g/dL (33-37); MEAN CORPUSCULAR VOLUME 72.2 fL (80-94); MONOCYTES # (AUTO) 0.3 K/uL (0.8-1.0); MONOCYTES % (AUTO) 4.6 % (1.7-9.3); NEUTROPHILS # (AUTO) 4.4 K/uL (1.8-7.7); NEUTROPHILS % (AUTO) 75.2 % (42.2-75.2); PLATELET COUNT (AUTO) 214 K/uL (140-450); RED BLOOD CELL COUNT(AUTO) 5.05 MIL/uL (4.20-6.10); RED CELL DISTRIBUTION WIDTH 20.4 % (11.6-13.7); WHITE BLOOD COUNT (AUTO) 5.9 K/uL (4.8-10.8)
[2022-05-29 00:18] LABS: APPEARANCE,URINE CLEAR (CLEAR); BILIRUBIN,URINE NEGATIVE (NEGATIVE); BLOOD, URINE 1+ (NEGATIVE); COLOR,URINE YELLOW (YELLOW); LEUKOCYTE ESTERASE ,URINE NEGATIVE (NEGATIVE); NITRITE, URINE NEGATIVE (NEGATIVE); UGLUCOSE NEGATIVE (NEGATIVE)
--- NOTE | 2022-05-29 00:21 | NUR ---
PT TAKEN TO CT VIA WC
--- NOTE | 2022-05-29 00:35 | NUR ---
RETURNED FROM CT
[2022-05-29 00:41] LABS: ALBUMIN 4.1 g/dL (3.4-5.0); ANION GAP 17.6 (8-16); CARBON DIOXIDE 30.8 mmol/L (21-32); CREATININE 0.9 mg/dL (0.6-1.3); POTASSIUM 3.4 mmol/L (3.5-5.1); TOTAL BILIRUBIN 0.6 mg/dL (0.0-1.0)
[2022-05-29 00:43] LABS: RBC,URINE 20-50 /HPF (0-5); WBC,URINE 0-5 /HPF (0-5)
[2022-05-29] MEDS ORDERED: FAMO-92 PO (03:14)
[2022-05-29 03:20] VITALS: BP 146/72
== END 2022-05-29 03:20 | disposition home or self-care (01) ==
LOC: MED 21:37
DX: K29.20 Alcoholic gastritis without bleeding (principal); F10.129 Alcohol abuse with intoxication, unspecified; Z79.899 Other long term (current) drug therapy
CPT/HCPCS: 36415; 74176; 80053; 81001; 83690; 85025; 96361; 96374; 99284; G0482; J3490; J7030

== ENCOUNTER 2022-06-29 00:25 | Emergency (ER) | payer SELFPAY ==
[~2022-06-29] VITALS: Ht 170.2 cm; Wt 68.0 kg
[~2022-06-29 00:25] MED LIST changes: +FAMO-92 PO
[2022-06-29 00:35] VITALS: BP 143/105
--- NOTE | 2022-06-29 00:43 | NUR ---
TO LOBBY FOLLOWING TRIAGE
[2022-06-29] MEDS ORDERED: chlordiazePOXIDE 25 MG CAP PO SCH (02:35)
[2022-06-29] MEDS ORDERED: LIB25 PO (03:09)
[2022-06-29 03:24] VITALS: BP 140/99
--- NOTE | 2022-06-29 03:27 | NUR ---
Patient discharged with v/s stable. Written and verbal after care instructions given and explained. Patient alert, oriented and verbalized understanding of instructions. Ambulatory with steady gait. All questions addressed prior to discharge. ID band removed. Patient advised to follow up with PMD. Rx of LIBRIUM given. Patient educated on indication of medication including possible reaction and side effects. Opportunity to ask questions provided and answered.
== END 2022-06-29 03:24 | disposition home or self-care (01) ==
LOC: MED 00:25
DX: R11.2 Nausea with vomiting, unspecified (principal); R51.9 Headache, unspecified; F41.9 Anxiety disorder, unspecified; R25.1 Tremor, unspecified; Z79.899 Other long term (current) drug therapy
CPT/HCPCS: 99283

== ENCOUNTER 2022-07-04 09:20 | Inpatient (IN) | payer MEDICAID ==
[~2022-07-04] VITALS: Ht 170.2 cm; Wt 69.4 kg
[~2022-07-04 09:20] MED LIST changes: +LIB25 PO
[2022-07-04 09:22] VITALS: BP 109/59
--- NOTE | 2022-07-04 09:25 | NUR ---
AMBULATED TO BED 7
--- NOTE | 2022-07-04 09:59 | NUR ---
31 y/o male bib self with c/o abdominal pain x today. Patient also has nausea and vomiting. Patient denies eating new foods or being around anyone who is sick. Patient denies fever, chills or SOB. Denies taking any medication. Medical History: Denies NKDA
[2022-07-04] MEDS ORDERED: NACL 0.9% 1,000 ML IV ONE ×2 (10:05→12:20)
[2022-07-04] MEDS ORDERED: ONDANSETRON 4 MG/2 ML VIAL IVP ONE (10:05)
--- NOTE | 2022-07-04 10:20 | NUR ---
IV started, bloodwork obtained, handed to CPT Rosalie at bedside.
--- NOTE | 2022-07-04 10:35 | NUR ---
Dr. Pineda evaluating patient at bedside.
[2022-07-04 10:46] LABS: BASOPHILS % (AUTO) 0.3 % (0.0-2.0); HEMOGLOBIN 13.8 g/dL (12.0-18.0); LYMPHOCYTES # (AUTO) 0.9 K/uL (2.0-11.5); LYMPHOCYTES % (AUTO) 10.6 % (20.5-51.1); MEAN CORPUSCULAR HEMOGLOBIN 24 pg (27-31); MEAN CORPUSCULAR HGB CONC 32 g/dL (33-37); MEAN CORPUSCULAR VOLUME 74.9 fL (80-94); MONOCYTES # (AUTO) 0.3 K/uL (0.8-1.0); MONOCYTES % (AUTO) 3.4 % (1.7-9.3); NEUTROPHILS # (AUTO) 7.3 K/uL (1.8-7.7); NEUTROPHILS % (AUTO) 85.7 % (42.2-75.2); PLATELET COUNT (AUTO) 195 K/uL (140-450); RED BLOOD CELL COUNT(AUTO) 5.74 MIL/uL (4.20-6.10); RED CELL DISTRIBUTION WIDTH 19.6 % (11.6-13.7); WHITE BLOOD COUNT (AUTO) 8.5 K/uL (4.8-10.8)
--- NOTE | 2022-07-04 10:55 | NUR ---
DR NEAL STATED PT OK TO GIVE PO FLUIDS
--- NOTE | 2022-07-04 10:59 | NUR ---
Patient requesting fluids PO. Educated on the importance of waiting for Zofran to work since he is actively throwing up. Per Dr. Miriam gibson to give fluids PO.
--- NOTE | 2022-07-04 11:04 | NUR ---
PT NOTED DRY HEAVING, PT EDUCATED TO LIMIT PO LIQUID INTAKE TO ENSURE ZOFRAN TAKES EFFECT, PT CONTINUES TO REQUEST CRANBERRY JUICE.
[2022-07-04 11:20] LABS: ALBUMIN 4.6 g/dL (3.4-5.0); ANION GAP 21.1 (8-16); CARBON DIOXIDE 32.8 mmol/L (21-32); TOTAL BILIRUBIN 0.7 mg/dL (0.0-1.0)
[2022-07-04 11:21] LABS: POTASSIUM 2.9 mmol/L (3.5-5.1)
[2022-07-04] MEDS ORDERED: KCL 20 MEQ/WATER INJ PREMIX 100 ML IV ONE (11:25)
--- NOTE | 2022-07-04 11:25 | NUR ---
ERMD STATED TO NOT GIVE PT ANY MORE PO FLUIDS D/T CONTINUED VOMITING
--- NOTE | 2022-07-04 11:58 | NUR ---
PT NOTED TO BE DRINKING CUPS OF WATER AND GOING TO THE BATHROOM TO DRINK WATER, INFORMED THAT THEY WILL HAVE INCREASED INCIDENCE OF N/V, PT STATED THAT UNDERSTANDING
--- NOTE | 2022-07-04 11:59 | NUR ---
PT TAKEN TO CT VIA JEZ
[2022-07-04] MEDS ORDERED: METOCLOPRAMIDE 10 MG/2 ML INJ VIAL IVP ONE (12:20)
[2022-07-04] MEDS ORDERED: POTASSIUM CHLORIDE 10 MEQ TABER PO ONE (13:00)
--- NOTE | 2022-07-04 13:05 | NUR ---
Patient refused IV Potassium, RN slowed down rate of infusion as well as piggyback normal saline as orderded by MD. Patient still complaining of pain. Dr. Pineda made aware. Discontinued IV Potassium. Order changed to PO Potassium.
--- NOTE | 2022-07-04 13:49 | NUR ---
JIMENEZ specimen obtained, walked to lab, handed to CPT Rosalie.
[2022-07-04] MEDS ORDERED: guaiFENesin DM 200/20 MG-10 ML 10 ML UDC PO PRN (14:10)
[2022-07-04] MEDS ORDERED: ZOLPIDEM 5 MG TAB PO PRN (14:10)
[2022-07-04] MEDS ORDERED: ACETAMINOPHEN 325 MG TAB PO PRN (14:10)
[2022-07-04] MEDS ORDERED: ONDANSETRON 4 MG/2 ML VIAL IM/IVP PRN (14:10)
[2022-07-04] MEDS ORDERED: MORPHINE SULFATE 2 MG/ML SYR IVP PRN (14:10)
[2022-07-04] MEDS ORDERED: HYDROcodone/APAP 7.5/325 MG 1 TAB PO PRN (14:10)
[2022-07-04] MEDS ORDERED: DOCUSATE SODIUM 100 MG GELCAP PO PRN (14:10)
--- NOTE | 2022-07-04 14:17 | NUR ---
Patient denies taking any medication at home. Med rec completed.
[2022-07-04] MEDS: NACL 0.9% 1,000 ML IV SCH ×2 (14:26→21:25)
--- NOTE | 2022-07-04 15:20 | NUR ---
Recieved phone call from lab, stating specimen was lost. Re-swabbed patient, walked JIMENEZ specimen to lab. Handed to CPT Giulia.
--- NOTE | 2022-07-04 15:52 | NUR ---
Patient will be admitted to care of Dr. Amaya. Admited to Med-Surg. Will go to room 112-A. Belongings list completed. Report to REMY Rangel.
[2022-07-04 16:05] LABS: ANION GAP 21.6 (8-16); CARBON DIOXIDE 27.6 mmol/L (21-32); CREATININE 0.8 mg/dL (0.6-1.3); POTASSIUM 3.2 mmol/L (3.5-5.1)
[2022-07-04 16:08] LABS: PROTHROMBIN TIME 10.6 secs (10.8-13.4)
[2022-07-04 16:09] LABS: MAGNESIUM 1.6 mg/dL (1.8-2.4); PHOSPHORUS 4.4 mg/dL (2.5-4.9)
--- NOTE | 2022-07-04 16:27 | NUR ---
RECEIVE REPORT FROM ER NURSE THAT PATIENT ADMIT FROM HOME, WITH ACUTE ABDOMINAL PAIN W/ VOMITING MIGHT 2/2 HIATAL HERNIA W/ PARAESOPHAGEAL GASTRIC COMPONENT, FATTER LIVER R/T ETOH USE, STOMACH ULCER. PATIENT IS FULL CODE, W/ NKA, AMBULATORY, ALERT X 4, ON ROOM AIR, NPO FOR NAUSEA/VOMITING, BATHROOM PRIVILEGE, PIV AT LAC 20 FOR NS INFUSING AT 150ML/HR. WILL CONTINUE TO MONITOR
[2022-07-04 16:49] VITALS: BP 127/78
[2022-07-04] MEDS: POTASSIUM CHLORIDE 10 MEQ TABER PO PRN (17:06)
--- NOTE | 2022-07-04 19:15 | NUR ---
ENDORSE PATIENT TO PM SHIFT NURSE THAT AMBULATORY PATIENT IS SLEEPING IN BED, ON ROOM AIR, NPO FOR NAUSEA/VOMITING, BATHROOM PRIVILEGE, PIV AT LAC 20 FOR NS INFUSING AT 150ML/HR
--- NOTE | 2022-07-04 19:20 | NUR ---
RECEIVED PT FROM AM NURSE FOR CONYINUITY OF CARE.PT IS STABLE
[2022-07-04 20:00] VITALS: BP 130/66
--- NOTE | 2022-07-04 22:30 | NUR ---
PATIENT ASLEEP AT THIS TIME. NO DISTRESS NOTED
[2022-07-04 23:53] LABS: BARBITURATE, URINE NEGATIVE ng/ml (NEG <=200); BENZODIAZEPINE, URINE POSITIVE ng/mL (NEG <=200); CANNABINOID, URINE NEGATIVE ng/mL (NEG <=50); COCAINE, URINE NEGATIVE ng/mL (NEG <=300); OPIATE, URINE NEGATIVE ng/mL (NEG <=2000); PHENCYCLIDINE SCREEN,URINE NEGATIVE ng/mL (NEG <=25)
[2022-07-05] MEDS: NACL 0.9% 1,000 ML IV SCH ×2 (03:34→11:06)
[2022-07-05 04:00] VITALS: BP 114/67
--- NOTE | 2022-07-05 06:00 | NUR ---
PATIENT IS AWAKE, NO COMPLAIN OF PAIN AT THIS TIME,NO DISTRESS NOTED
[2022-07-05 06:44] LABS: BASOPHILS % (AUTO) 0.3 % (0.0-2.0); EOSINOPHILS % (AUTO) 0.9 % (0.0-4.0); HEMATOCRIT 30.1 % (36-52); HEMOGLOBIN 9.7 g/dL (12.0-18.0); LYMPHOCYTES # (AUTO) 0.9 K/uL (2.0-11.5); LYMPHOCYTES % (AUTO) 21.9 % (20.5-51.1); MEAN CORPUSCULAR HEMOGLOBIN 24 pg (27-31); MEAN CORPUSCULAR HGB CONC 32 g/dL (33-37); MEAN CORPUSCULAR VOLUME 75.3 fL (80-94); MONOCYTES # (AUTO) 0.3 K/uL (0.8-1.0); MONOCYTES % (AUTO) 7.6 % (1.7-9.3); NEUTROPHILS # (AUTO) 2.7 K/uL (1.8-7.7); NEUTROPHILS % (AUTO) 69.3 % (42.2-75.2); PLATELET COUNT (AUTO) 94 K/uL (140-450); WHITE BLOOD COUNT (AUTO) 3.9 K/uL (4.8-10.8)
[2022-07-05 06:54] LABS: ANION GAP 9.2 (8-16); CARBON DIOXIDE 28.8 mmol/L (21-32); CREATININE 0.6 mg/dL (0.6-1.3)
[2022-07-05 08:00] VITALS: BP 131/81
[2022-07-05] MEDS ORDERED: LIB25 PO (08:06)
[2022-07-05] MEDS ORDERED: PRETAB PO (08:06)
[2022-07-05] MEDS ORDERED: FOLI1TAB90 PO (08:06)
[2022-07-05] MEDS ORDERED: THIA-34 PO (08:06)
[2022-07-05] MEDS ORDERED: PANT40EC56 PO (08:06)
[2022-07-05] MEDS ORDERED: PANTOPRAZOLE 40 MG TABEC PO SCH (09:00)
[2022-07-05] MEDS ORDERED: THIAMINE 100 MG TAB PO SCH (09:00)
[2022-07-05] MEDS ORDERED: MULTIVIT/MIN/CA/FE/FA 1 TAB PO SCH (09:00)
[2022-07-05] MEDS ORDERED: FOLIC ACID 1 MG TAB PO SCH (09:00)
--- NOTE | 2022-07-05 09:22 | NUR ---
PATIENT HAS BEEN SCREENED AND CATEGORIZED LOW NUTRITION RISK. PATIENT WILL BE SEEN WITHIN 7 DAYS OF ADMISSION. 07/11/22 REFERRAL RECEIVED NOT APPLICABLE [address]
[2022-07-05 10:06] LABS: HEPATITIS A ANTIBODY IGM Negative (Negative); HEPATITIS B CORE AB TOTAL Negative (Negative); HEPATITIS B SURFACE ANTIBODY Reactive (.); HEPATITIS B SURFACE ANTIGEN Negative (Negative)
[2022-07-05] MEDS: POTASSIUM CHLORIDE 10 MEQ TABER PO PRN (11:08)
[2022-07-05] MEDS: chlordiazePOXIDE 25 MG CAP PO SCH ×2 (11:10→13:10)
[2022-07-05 12:00] VITALS: BP 122/80
--- NOTE | 2022-07-05 12:00 | NUR ---
DC PLANNING SW MET WITH PATIENT AT BEDSIDE TO COMPLETE ASSESSMENT. PATIENT REPORTS RESIDING WITH HIS SISTER AT HOME AT THE ADDRESS LISTED ON FILE. PATIENT IDENTIFIED HIS SISTERS HO AND [facility] EMERGENCY CONTACT AND MDM. PATIENT DENIES HAVING AD IN PLACE AND DENIED AD OFFERED BY SW. PATIENT REPORTS BEING INCONSISTENT WITH MEETING WITH PCP AND REPORTS LAST VISIT 3 YRS AGO. PATIENT DENIES TAKING MEDICATION AT THIS TIME. PATIENT REPORTS BEING INDEPENDENT IN ALL ACTIVITIES AND DENIES USE OF DME. PATIENT DENIES MENTAL HEALTH HX. PATIENT REPORTS CHRONIC ALCOHOL USE THAT SPANS INTO HIS EARLY ADULT LIFE. PATIENT REPORTS EXCESSIVE DRINKING, PATIENT REPORTS DRINKING A 6PACK/DAY. PATIENT REPORTS THAT HE STOPS DRINKING FOR ABOUT A MONTH BEFORE RELAPSING, PATIENT REPORTS CONTINUOUS CYCLE. SW PROVIDED PATIENT WITH PSYCHOEDUCATION ON DIRECTOR OF BUSINESS SERVICES USE OF PROLONGED ALCOHOL USE. PATIENT RECEPTIVE AND ACCEPTED RESOURCES OFFERED BY SW. PATIENT REPORTS [employer] AND REPORTS BEING EMPLOYED AT A [employer] PTY SITE. PATIENT REPORTS DC PLAN IS TO RETURN HOME WITH HIS SISTERS PROVIDING TRANSPORTATION AND AIDING IN REQUIRED CARE.
[2022-07-05 12:18] VITALS: BP 116/77
== END 2022-07-05 16:41 | disposition home or self-care (01) | DRG 254 ==
LOC: MED 09:20 → MTU 14:11
PROVIDERS: ADMIT Student in an Organized Health Care Education/Training Program; ATTEND Student in an Organized Health Care Education/Training Program
DX: K44.9 Diaphragmatic hernia without obstruction or gangrene (principal); K85.90 Acute pancreatitis without necrosis or infection, unspecified; E83.42 Hypomagnesemia; E86.0 Dehydration; Z20.822 Contact with and (suspected) exposure to COVID-19; Z79.899 Other long term (current) drug therapy; R74.01 Elevation of levels of liver transaminase levels; F10.10 Alcohol abuse, uncomplicated; E87.6 Hypokalemia; Y90.6 Blood alcohol level of 120-199 mg/100 ml
CPT/HCPCS: 36415; 80048; 80053; 80305; 82150; 83690; 83735; 84100; 85025; 85610; 85730; 86704; 86706; 86708; 86709; 86803; 87081; 87340; 96361; 96365; 96366; 96375; 99285; G0482; J2405; J2765; J3480; Q9967

== ENCOUNTER 2022-07-07 10:50 | Emergency (ER) | payer MEDICAID ==
[~2022-07-07] VITALS: Ht 170.2 cm; Wt 72.1 kg
[~2022-07-07 10:50] MED LIST changes: -FAMO-92 PO; +FOLI1TAB90 PO; -PANT40EC PO; +PANT40EC56 PO; +PRETAB PO; +THIA-34 PO
[2022-07-07 11:08] VITALS: BP 106/45
[2022-07-07 12:10] LABS: BASOPHILS % (AUTO) 0.3 % (0.0-2.0); EOSINOPHILS % (AUTO) 0.4 % (0.0-4.0); HEMATOCRIT 35.9 % (36-52); HEMOGLOBIN 11.4 g/dL (12.0-18.0); LYMPHOCYTES # (AUTO) 0.9 K/uL (2.0-11.5); LYMPHOCYTES % (AUTO) 12.3 % (20.5-51.1); MEAN CORPUSCULAR HEMOGLOBIN 25 pg (27-31); MEAN CORPUSCULAR HGB CONC 32 g/dL (33-37); MEAN CORPUSCULAR VOLUME 77.9 fL (80-94); MONOCYTES # (AUTO) 0.4 K/uL (0.8-1.0); MONOCYTES % (AUTO) 5.9 % (1.7-9.3); NEUTROPHILS % (AUTO) 81.1 % (42.2-75.2); PLATELET COUNT (AUTO) 112 K/uL (140-450); RED CELL DISTRIBUTION WIDTH 19.6 % (11.6-13.7); WHITE BLOOD COUNT (AUTO) 7.4 K/uL (4.8-10.8)
[2022-07-07 12:37] LABS: ALBUMIN 3.8 g/dL (3.4-5.0); ANION GAP 14.7 (8-16); CARBON DIOXIDE 25.2 mmol/L (21-32); CREATININE 0.7 mg/dL (0.6-1.3); POTASSIUM 3.9 mmol/L (3.5-5.1); TOTAL BILIRUBIN 0.4 mg/dL (0.0-1.0)
--- NOTE | 2022-07-07 13:05 | NUR ---
31/M PRESENTS TO ED WITH C/O ABDOMINAL PAIN, N/V. STATES HE SAW BLOOD IN HIS STOOL TODAY, REPORTS HE WAS ADMITTED HERE TWO DAYS AGO FOR SIMILAR SYMPTOMS. PATIENT DENIES DRUG OR ALCOHOL USE, DENIES FEVERS, COUGH, CP.
[2022-07-07 13:38] VITALS: BP 125/90
--- NOTE | 2022-07-07 13:39 | NUR ---
Patient discharged with v/s stable. Written and verbal after care instructions ABOUT ANEMIA given and explained. Patient verbalized understanding. Ambulatory with steady gait. All questions addressed prior to discharge. Advised to follow up with PMD.
== END 2022-07-07 13:38 | disposition home or self-care (01) ==
LOC: MED 10:50
DX: K92.1 Melena (principal); K29.20 Alcoholic gastritis without bleeding; E11.9 Type 2 diabetes mellitus without complications; Z79.4 Long term (current) use of insulin; Z79.899 Other long term (current) drug therapy
CPT/HCPCS: 36415; 80053; 85025; 86886; 86900; 86901; 99283

== ENCOUNTER 2022-07-07 23:25 | Emergency (ER) | payer MEDICAID ==
--- NOTE | 2022-07-08 00:40 | NUR ---
PT CALLED TO LOBBY AND TRIAGE, NO ANSWER.
--- NOTE | 2022-07-08 00:41 | NUR ---
CALLED PT TO NUMBER ON FILE, WENT TO [employer].
== END 2022-07-08 00:41 | disposition left against medical advice (07) ==
LOC: MED 23:25
DX: R11.10 Vomiting, unspecified (principal); Z53.21 Procedure and treatment not carried out due to patient leaving prior to being seen by health care provider

== ENCOUNTER 2022-09-28 12:12 | Emergency (ER) | payer SELFPAY ==
[~2022-09-28] VITALS: Ht 172.7 cm; Wt 70.5 kg
[2022-09-28 12:22] VITALS: BP 143/111
[2022-09-28] MEDS ORDERED: FAMOTIDINE 20 MG/2 ML VIAL IVP ONE (12:30)
[2022-09-28] MEDS ORDERED: DICYCLOMINE HCL LIQUID 20 MG, ALUMINUM HYD/MAG/SIMETHICONE 30 ML, LIDOCAINE VISCOUS 2% ... PO ONE ×3 (12:30)
[2022-09-28] MEDS ORDERED: NACL 0.9% 1,000 ML IV ONE (12:30)
--- NOTE | 2022-09-28 12:30 | NUR ---
PT AMB TO BED 7.
[2022-09-28] MEDS ORDERED: DICYCLOMINE HCL LIQUID 10 MG/5 ML UDC ONE (12:41)
[2022-09-28] MEDS ORDERED: ALUMINUM HYD/MAG/SIMETHICONE 30 ML UDC ONE (12:41)
[2022-09-28 12:57] LABS: BASOPHILS % (AUTO) 0.6 % (0.0-2.0); EOSINOPHILS % (AUTO) 0.3 % (0.0-4.0); HEMOGLOBIN 15.1 g/dL (12.0-18.0); LYMPHOCYTES # (AUTO) 2.6 K/uL (2.0-11.5); LYMPHOCYTES % (AUTO) 39.8 % (20.5-51.1); MEAN CORPUSCULAR HEMOGLOBIN 26 pg (27-31); MEAN CORPUSCULAR HGB CONC 34 g/dL (33-37); MONOCYTES # (AUTO) 0.4 K/uL (0.8-1.0); MONOCYTES % (AUTO) 6.4 % (1.7-9.3); NEUTROPHILS # (AUTO) 3.5 K/uL (1.8-7.7); NEUTROPHILS % (AUTO) 52.9 % (42.2-75.2); PLATELET COUNT (AUTO) 392 K/uL (140-450); RED BLOOD CELL COUNT(AUTO) 5.93 MIL/uL (4.20-6.10); RED CELL DISTRIBUTION WIDTH 17.4 % (11.6-13.7); WHITE BLOOD COUNT (AUTO) 6.6 K/uL (4.8-10.8)
[2022-09-28 13:15] LABS: ANION GAP 18.3 (8-16); POTASSIUM 3.3 mmol/L (3.5-5.1); TOTAL BILIRUBIN 0.6 mg/dL (0.0-1.0)
[2022-09-28] MEDS ORDERED: ONDANSETRON 4 MG/2 ML VIAL IVP ONE (13:55)
--- NOTE | 2022-09-28 14:15 | NUR ---
31M presents to ED with c/o of ABD pain and N/V today. Pt reports drinking unknown amount of alcholic beverages prior to symptoms starting. Pt reports a constant, sharp, 8/10 ABD pain. Pt reports having 4 episodes of vomiting since arriving to ED. Pt changed into gown and placed on bedside monitor.
--- NOTE | 2022-09-28 15:28 | NUR ---
Pt states unable to provide urine sample at this time.
[2022-09-28] MEDS ORDERED: ONDA-188 SL (17:50)
--- NOTE | 2022-09-28 18:00 | NUR ---
IV removed, catheter intact and site benign. Applied folded 4x4 gauze and tape to stop bleeding.
== END 2022-09-28 17:57 | disposition home or self-care (01) ==
LOC: MED 12:12
DX: K92.0 Hematemesis (principal); E11.9 Type 2 diabetes mellitus without complications; Z79.4 Long term (current) use of insulin; Z79.899 Other long term (current) drug therapy
CPT/HCPCS: 36415; 80053; 83690; 85025; 96361; 96374; 96375; 99284; J2405; J3490; J7030

== ENCOUNTER 2022-10-01 13:17 | Emergency (ER) | payer SELFPAY ==
[~2022-10-01] VITALS: Ht 167.6 cm; Wt 77.1 kg
[~2022-10-01 13:17] MED LIST changes: +ONDA-188 SL
[2022-10-01 13:27] VITALS: BP 137/99
[2022-10-01] MEDS ORDERED: NACL 0.9% 1,000 ML IV SCH (13:40)
[2022-10-01] MEDS ORDERED: PANTOPRAZOLE 40 MG INJ VIAL IVP ONE (13:40)
[2022-10-01] MEDS ORDERED: ONDANSETRON 4 MG/2 ML VIAL IVP ONE (13:40)
--- NOTE | 2022-10-01 13:57 | NUR ---
PT C/O N/V SINCE THIS AM. PT STATES LAST DRINK 3 DAYS AGO. SEEN IN ED LAST WEEK FOR SAME COMPLAINT. IV INSERTED TO LEFT AC #[id number], BLOOD DRAWN AND SENT TO LAB. KULDIP ON MONITOR. MEDICATED PER ORDER.
--- NOTE | 2022-10-01 14:11 | NUR ---
X-Ray at bedside.
[2022-10-01 14:22] LABS: BASOPHILS % (AUTO) 0.4 % (0.0-2.0); EOSINOPHILS % (AUTO) 0.1 % (0.0-4.0); HEMATOCRIT 42.5 % (36-52); HEMOGLOBIN 14.1 g/dL (12.0-18.0); LYMPHOCYTES # (AUTO) 2.3 K/uL (2.0-11.5); MEAN CORPUSCULAR HEMOGLOBIN 25 pg (27-31); MEAN CORPUSCULAR HGB CONC 33 g/dL (33-37); MEAN CORPUSCULAR VOLUME 76.6 fL (80-94); MONOCYTES # (AUTO) 0.5 K/uL (0.8-1.0); MONOCYTES % (AUTO) 5.2 % (1.7-9.3); NEUTROPHILS % (AUTO) 68.3 % (42.2-75.2); PLATELET COUNT (AUTO) 325 K/uL (140-450); RED BLOOD CELL COUNT(AUTO) 5.54 MIL/uL (4.20-6.10); WHITE BLOOD COUNT (AUTO) 8.8 K/uL (4.8-10.8)
[2022-10-01 14:27] LABS: ALBUMIN 3.8 g/dL (3.4-5.0); ANION GAP 15.9 (8-16); CARBON DIOXIDE 32.5 mmol/L (21-32); CREATININE 0.9 mg/dL (0.6-1.3); POTASSIUM 3.4 mmol/L (3.5-5.1); TOTAL BILIRUBIN 0.5 mg/dL (0.0-1.0)
[2022-10-01] MEDS ORDERED: KETOROLAC 15 MG/ML VIAL IVP ONE (14:40)
[2022-10-01] MEDS ORDERED: POTASSIUM CHLORIDE 10 MEQ TABER PO ONE (14:40)
[2022-10-01] MEDS ORDERED: ONDA-188 PO (15:05)
[2022-10-01] MEDS ORDERED: FAMO-92 PO (15:05)
--- NOTE | 2022-10-01 15:21 | NUR ---
PER NATE NO NEED FOR URINE, OK TO DC
[2022-10-01 15:28] VITALS: BP 110/89
--- NOTE | 2022-10-01 15:29 | NUR ---
Patient discharged with v/s stable. Written and verbal after care instructions ABOPUT ALCOHOL USE DISORDER AND GASTRITIS given and explained. Patient alert, oriented and verbalized understanding of instructions. Ambulatory with steady gait. All questions addressed prior to discharge. ID band removed. Patient advised to follow up with PMD. Rx of PEPCID AND ZOFRAN given. Patient educated on indication of medication including possible reaction and side effects. Opportunity to ask questions provided and answered.
[2022-10-02] MEDS ORDERED: MAG-27 PO (06:25)
== END 2022-10-01 15:28 | disposition home or self-care (01) ==
LOC: MED 13:17
DX: K29.20 Alcoholic gastritis without bleeding (principal); E11.9 Type 2 diabetes mellitus without complications; Z79.4 Long term (current) use of insulin; Z79.899 Other long term (current) drug therapy
CPT/HCPCS: 36415; 71045; 80053; 83690; 85025; 96361; 96374; 96375; 99284; C9113; G0482; J1885; J2405; J7030

== ENCOUNTER 2022-10-02 03:54 | Emergency (ER) | payer SELFPAY ==
[~2022-10-02] VITALS: Ht 167.6 cm; Wt 77.1 kg
[~2022-10-02 03:54] MED LIST changes: +FAMO-92 PO; +ONDA-188 PO
[2022-10-02 04:07] VITALS: BP 110/70
--- NOTE | 2022-10-02 04:22 | NUR ---
PT TO BED, AMBULATORY
[2022-10-02] MEDS ORDERED: ONDANSETRON 4 MG/2 ML VIAL IVP ONE (05:25)
[2022-10-02] MEDS ORDERED: DICYCLOMINE HCL LIQUID 20 MG, ALUMINUM HYD/MAG/SIMETHICONE 30 ML, LIDOCAINE VISCOUS 2% ... PO ONE ×3 (05:25)
[2022-10-02] MEDS ORDERED: LORazepam 2 MG/ML VIAL IVP ONE (05:25)
[2022-10-02] MEDS ORDERED: NACL 0.9% 1,000 ML IV ONE (05:25)
[2022-10-02] MEDS ORDERED: DICYCLOMINE HCL LIQUID 10 MG/5 ML UDC ONE (05:29)
[2022-10-02] MEDS ORDERED: ALUMINUM HYD/MAG/SIMETHICONE 30 ML UDC ONE (05:29)
--- NOTE | 2022-10-02 05:45 | NUR ---
Blood drawn and urine sample collected and sent to lab.
[2022-10-02 05:53] LABS: BASOPHILS % (AUTO) 0.5 % (0.0-2.0); HEMATOCRIT 40.9 % (36-52); HEMOGLOBIN 13.5 g/dL (12.0-18.0); LYMPHOCYTES # (AUTO) 1.4 K/uL (2.0-11.5); LYMPHOCYTES % (AUTO) 26.5 % (20.5-51.1); MEAN CORPUSCULAR HEMOGLOBIN 25 pg (27-31); MEAN CORPUSCULAR HGB CONC 33 g/dL (33-37); MEAN CORPUSCULAR VOLUME 77.1 fL (80-94); MONOCYTES # (AUTO) 0.3 K/uL (0.8-1.0); MONOCYTES % (AUTO) 5.8 % (1.7-9.3); NEUTROPHILS # (AUTO) 3.5 K/uL (1.8-7.7); NEUTROPHILS % (AUTO) 67.2 % (42.2-75.2); PLATELET COUNT (AUTO) 279 K/uL (140-450); RED BLOOD CELL COUNT(AUTO) 5.31 MIL/uL (4.20-6.10); RED CELL DISTRIBUTION WIDTH 17.1 % (11.6-13.7); WHITE BLOOD COUNT (AUTO) 5.3 K/uL (4.8-10.8)
[2022-10-02 06:13] LABS: ALBUMIN 3.5 g/dL (3.4-5.0); ANION GAP 16.1 (8-16); CARBON DIOXIDE 30.2 mmol/L (21-32); CREATININE 0.9 mg/dL (0.6-1.3); POTASSIUM 3.3 mmol/L (3.5-5.1); TOTAL BILIRUBIN 0.5 mg/dL (0.0-1.0)
[2022-10-02 06:21] LABS: APPEARANCE,URINE CLEAR (CLEAR); BILIRUBIN,URINE NEGATIVE (NEGATIVE); BLOOD, URINE TRACE-L (NEGATIVE); COLOR,URINE YELLOW (YELLOW); LEUKOCYTE ESTERASE ,URINE NEGATIVE (NEGATIVE); NITRITE, URINE NEGATIVE (NEGATIVE); UGLUCOSE NEGATIVE (NEGATIVE)
[2022-10-02] MEDS ORDERED: MAG-27 PO (06:25)
[2022-10-02 06:30] LABS: RBC,URINE 0-5 /HPF (0-5); WBC,URINE NONE SEEN /HPF (0-5)
[2022-10-02 06:41] VITALS: BP 110/70
--- NOTE | 2022-10-02 06:41 | NUR ---
Patient discharged with v/s stable. Written and verbal after care instructions given and explained. Patient alert, oriented and verbalized understanding of instructions. Ambulatory with steady gait. All questions addressed prior to discharge. ID band removed. Patient advised to follow up with PMD. Rx of MYLANTA given. Patient educated on indication of medication including possible reaction and side effects. Opportunity to ask questions provided and answered. DX: GASTRITIS, ALCOHOL INTOXICATION
[2022-10-02 06:57] LABS: BARBITURATE, URINE NEGATIVE ng/ml (NEG <=200); BENZODIAZEPINE, URINE NEGATIVE ng/mL (NEG <=200); CANNABINOID, URINE NEGATIVE ng/mL (NEG <=50); COCAINE, URINE NEGATIVE ng/mL (NEG <=300); OPIATE, URINE NEGATIVE ng/mL (NEG <=2000); PHENCYCLIDINE SCREEN,URINE NEGATIVE ng/mL (NEG <=25)
== END 2022-10-02 06:41 | disposition home or self-care (01) ==
LOC: MED 03:54
DX: R10.13 Epigastric pain (principal); F10.129 Alcohol abuse with intoxication, unspecified; E11.9 Type 2 diabetes mellitus without complications; Z79.4 Long term (current) use of insulin; Z79.899 Other long term (current) drug therapy; Y90.9 Presence of alcohol in blood, level not specified
CPT/HCPCS: 36415; 80053; 80305; 81001; 83690; 85025; 96361; 96374; 96375; 99284; G0482; J2060; J2405; J7030

== ENCOUNTER 2022-10-04 09:25 | Inpatient (IN) | payer SELFPAY ==
[~2022-10-04] VITALS: Ht 172.7 cm; Wt 72.1 kg
[~2022-10-04 09:25] MED LIST changes: +MAG-27 PO
[2022-10-04 09:27] VITALS: BP 148/57
--- NOTE | 2022-10-04 09:59 | NUR ---
PT ANXIOUS, WALKING AROUND IN ROOM. PT C/O NAUSEA. ATTEMPTED TO COLLECTED URINE SAMPLE BUT PT REFUSES. PLACED PT BACK IN BED, CONNECTED TO TELE MONITOR. WILL CONTINUE TO MONITOR
[2022-10-04] MEDS ORDERED: KETOROLAC 30 MG/ML VIAL IVP ONE (10:50)
[2022-10-04] MEDS ORDERED: ONDANSETRON 4 MG/2 ML VIAL IVP ONE ×2 (10:50→13:35)
[2022-10-04 11:16] LABS: BASOPHILS % (AUTO) 0.6 % (0.0-2.0); EOSINOPHILS % (AUTO) 0.1 % (0.0-4.0); HEMATOCRIT 43.2 % (36-52); HEMOGLOBIN 14.3 g/dL (12.0-18.0); LYMPHOCYTES # (AUTO) 1.2 K/uL (2.0-11.5); LYMPHOCYTES % (AUTO) 22.7 % (20.5-51.1); MEAN CORPUSCULAR HEMOGLOBIN 26 pg (27-31); MEAN CORPUSCULAR HGB CONC 33 g/dL (33-37); MEAN CORPUSCULAR VOLUME 77.4 fL (80-94); MONOCYTES # (AUTO) 0.4 K/uL (0.8-1.0); NEUTROPHILS # (AUTO) 3.8 K/uL (1.8-7.7); NEUTROPHILS % (AUTO) 68.6 % (42.2-75.2); PLATELET COUNT (AUTO) 193 K/uL (140-450); RED BLOOD CELL COUNT(AUTO) 5.59 MIL/uL (4.20-6.10); WHITE BLOOD COUNT (AUTO) 5.5 K/uL (4.8-10.8)
[2022-10-04 11:35] LABS: ALBUMIN 3.6 g/dL (3.4-5.0); ANION GAP 18.6 (8-16); CARBON DIOXIDE 32.9 mmol/L (21-32); CREATININE 0.9 mg/dL (0.6-1.3); POTASSIUM 3.5 mmol/L (3.5-5.1); TOTAL BILIRUBIN 0.5 mg/dL (0.0-1.0)
[2022-10-04] MEDS: NACL 0.9% 1,000 ML IV SCH ×2 (11:37→12:05)
--- NOTE | 2022-10-04 11:59 | NUR ---
PT YELLING IN ROOM. INFORMED PT NOT TO YELL. PT CONTINUE TO BE ANXIOUS, AND NON-COMPLIANT. IVF RUNNING WELL.
[2022-10-04] MEDS ORDERED: NACL 0.9% 1,000 ML IV ONE (12:20)
[2022-10-04 12:50] LABS: APPEARANCE,URINE CLEAR (CLEAR); BILIRUBIN,URINE NEGATIVE (NEGATIVE); BLOOD, URINE TRACE-I (NEGATIVE); COLOR,URINE YELLOW (YELLOW); LEUKOCYTE ESTERASE ,URINE NEGATIVE (NEGATIVE); NITRITE, URINE NEGATIVE (NEGATIVE); PH,URINE 7.5 (5.0-9.0); UGLUCOSE NEGATIVE (NEGATIVE)
[2022-10-04 13:04] LABS: OTHER CASTS, URINE None Seen /LPF (None Seen); RBC,URINE 0-5 /HPF (0-5); WBC,URINE 0-5 /HPF (0-5)
--- NOTE | 2022-10-04 13:15 | NUR ---
NOTED PT STICKING FINGER TO VOMIT. UPDATED ALL TESTS AND PROCEDURES. WILL CONTINUE TO MONITOR.
[2022-10-04] MEDS ORDERED: LORazepam 2 MG/ML VIAL IVP PRN ×2 (14:00→21:25)
[2022-10-04] MEDS ORDERED: ACETAMINOPHEN 325 MG TAB PO PRN (14:00)
[2022-10-04 14:40] LABS: AMYLASE 172 U/L (25-115); CHOL/HDL RATIO 1.2 (1-4.5); HDL CHOLESTEROL 141 mg/dL (40-60); LDL (CALC) -33 mg/dL (60-100); MAGNESIUM 1.9 mg/dL (1.8-2.4); PHOSPHORUS 4.2 mg/dL (2.5-4.9); THYROID STIMULATING HORMONE 0.38 uIU/mL (0.34-3.74); TRIGLYCERIDES 291 mg/dL (30-150)
[2022-10-04 14:47] LABS: PROTHROMBIN TIME 12.9 secs (10.8-13.4)
[2022-10-04 15:17] LABS: BARBITURATE, URINE NEGATIVE ng/ml (NEG <=200); BENZODIAZEPINE, URINE POSITIVE ng/mL (NEG <=200); CANNABINOID, URINE NEGATIVE ng/mL (NEG <=50); COCAINE, URINE NEGATIVE ng/mL (NEG <=300); OPIATE, URINE NEGATIVE ng/mL (NEG <=2000); PHENCYCLIDINE SCREEN,URINE NEGATIVE ng/mL (NEG <=25)
[2022-10-04] MEDS: ONDANSETRON 4 MG/2 ML VIAL IVP PRN (20:31)
[2022-10-04] MEDS: DOCUSATE SODIUM 100 MG GELCAP PO SCH (20:32)
--- NOTE | 2022-10-04 20:39 | NUR ---
Patient lying in bed, A/Ox4, chest rise and fall symmetrical, no c/o pain or s/s of distress, patient on monitor, siezure pads in place. Addendum: 10/04/22 at 2039 by [email or web address] Patient lying in bed, A/Ox4, chest rise and fall symmetrical, no s/s of distress, patient on monitor, siezure pads in place.
[2022-10-04] MEDS ORDERED: LORazepam 1 MG TAB PO SCH (21:00)
--- NOTE | 2022-10-04 21:23 | NUR ---
Spoke to Dr. Boateng via telephone, and Dr. Boateng stated she "is changing diet order to NPO except for medications." Readback completed.
--- NOTE | 2022-10-04 21:26 | NUR ---
Patient will be admitted to care of Pros[facility] ALBERTO. [facility]. Belongings list completed. Report to Prosper RN, Prosper ALBERTO verbalized understanding of report, no further questions.
[2022-10-04 21:30] VITALS: BP 138/79
--- NOTE | 2022-10-04 21:30 | NUR ---
PT TRANSPORTED VIA GURNEY FROM ER. PT IS AAOX4 AND AMBULATORY. PT IS ON RA NOT IN ANY DISTRESS. PT HAS 20 GAUGE ON LEFT AC. PT HAS BEEN THROWING UP BUT NO BLOODY EMESIS. EDUCATED PT TEST SPECIALIST LIGHT SYSTEM. ROOM ENVIRONMENT. WILL CONTINUE TO MONITOR THE PT.
[2022-10-04] MEDS: MORPHINE SULFATE 2 MG/ML SYR IVP PRN (22:31)
--- NOTE | 2022-10-04 22:31 | NUR ---
PT COMPLAINS OF 9/10 ABD PAIN. MORPHINE WAS GIVEN PER MD ORDER.
[2022-10-05] MEDS: ONDANSETRON 4 MG/2 ML VIAL IVP PRN ×2 (00:30→06:34)
--- NOTE | 2022-10-05 00:30 | NUR ---
PT BEEN VOMITING SEVERAL TIMES THROUGH OUT THE SHIFT. CLEAR TO COLOR. ZOFRAN WAS GIVEN. NO OTHER COMPLAINS. WILL CONTINUE TO MONITOR THE PT.
[2022-10-05] MEDS: HYDROcodone/APAP 7.5/325 MG 1 TAB PO PRN ×2 (01:35→05:31)
[2022-10-05] MEDS: MORPHINE SULFATE 2 MG/ML SYR IVP PRN ×4 (03:36→22:26)
[2022-10-05 04:00] VITALS: BP 141/89
--- NOTE | 2022-10-05 04:45 | NUR ---
OBSERVED PT. PT IS AWAKE. PT IS NOT IN ANY DISTRESS. CALL LIGHT WITHIN REACH. WILL CONTINUE TO MONITOR THE PT.
[2022-10-05 05:02] LABS: BASOPHILS % (AUTO) 0.1 % (0.0-2.0); CARBON DIOXIDE 34.6 mmol/L (21-32); CREATININE 0.9 mg/dL (0.6-1.3); HEMATOCRIT 39.7 % (36-52); HEMOGLOBIN 13.2 g/dL (12.0-18.0); LYMPHOCYTES # (AUTO) 0.6 K/uL (2.0-11.5); LYMPHOCYTES % (AUTO) 4.7 % (20.5-51.1); MEAN CORPUSCULAR HEMOGLOBIN 26 pg (27-31); MEAN CORPUSCULAR HGB CONC 33 g/dL (33-37); MEAN CORPUSCULAR VOLUME 77.1 fL (80-94); MONOCYTES # (AUTO) 0.8 K/uL (0.8-1.0); MONOCYTES % (AUTO) 6.3 % (1.7-9.3); NEUTROPHILS # (AUTO) 10.8 K/uL (1.8-7.7); PLATELET COUNT (AUTO) 143 K/uL (140-450); POTASSIUM 3.2 mmol/L (3.5-5.1); RED BLOOD CELL COUNT(AUTO) 5.15 MIL/uL (4.20-6.10); RED CELL DISTRIBUTION WIDTH 16.8 % (11.6-13.7)
[2022-10-05 05:09] LABS: MAGNESIUM 1.5 mg/dL (1.8-2.4); PHOSPHORUS 4.5 mg/dL (2.5-4.9)
[2022-10-05 05:32] LABS: ANION GAP 8.6 (8-16)
[2022-10-05 06:33] LABS: NEUTROPHILS % (AUTO) 88.9 % (42.2-75.2); WHITE BLOOD COUNT (AUTO) 12.2 K/uL (4.8-10.8)
--- NOTE | 2022-10-05 06:35 | NUR ---
ZOFRAN GIVEN FOR NAUSEA AND VOMITING. PT HAS HAD SEVERAL EMESIS THROUGHOUT THE SHIFT. LOOKED CLEAR WITH A LITTLE OF WHITE FROTH ON TOP.
--- NOTE | 2022-10-05 07:16 | NUR ---
ENDORSED PT TO DAY SHIFT RN ADZ FOR CONTINUITY OF CARE. PT IS STABLE.
[2022-10-05] MEDS: MULTIVITAMIN 1 TAB PO SCH (09:24)
[2022-10-05] MEDS: DOCUSATE SODIUM 100 MG GELCAP PO SCH ×2 (09:24→20:11)
[2022-10-05] MEDS: PANTOPRAZOLE 40 MG INJ VIAL IVP SCH (09:24)
[2022-10-05] MEDS: FOLIC ACID 1 MG TAB PO SCH (09:25)
[2022-10-05] MEDS: THIAMINE 100 MG TAB PO SCH (09:25)
[2022-10-05 12:00] VITALS: BP 128/87
[2022-10-05] MEDS ORDERED: MAG SULF 2000 MG/WATER PREMIX 50 ML IV PRN (14:05)
[2022-10-05] MEDS ORDERED: POTASSIUM CHLORIDE 10 MEQ TABER PO PRN (14:05)
[2022-10-05] MEDS: NACL 0.9% 1,000 ML IV SCH ×2 (14:41→20:08)
--- NOTE | 2022-10-05 19:30 | NUR ---
RECEIVED REPORT FROM DAY SHIFT RN RANJANA FOR CONTINUITY OF CARE. PT IS AAOX4 ON RA. PT IS AMBULATORY. PT DENIES ANY PAIN AND STOP HAVING NAUSEA AND VOMITING. PT HAS LEFT AC 20 GAUGE WITH NS 200 CC/HR. CALL LIGHT WITHIN REACH. PLAN OF CARE DISCUSSED. WILL CONTINUE TO MONITOR THE PT.
[2022-10-05 20:00] VITALS: BP 148/79
--- NOTE | 2022-10-05 20:11 | NUR ---
SCHEDULE MEDICATIONS GIVEN. NO ADVERSE REACTION NOTED. WILL CONTINUE TO MONITOR THE PT.
[2022-10-05] MEDS ORDERED: ATORVASTATIN 20 MG TAB PO SCH (21:00)
--- NOTE | 2022-10-06 00:10 | NUR ---
OBSERVED PT. PT IS AWAKE NOT IN ANY DISTRESS. PT WANTED SOME JUICE AND PROVIDED. NO OTHER COMPLAINS. WILL CONTINUE TO MONITOR THE PT.
[2022-10-06] MEDS: NACL 0.9% 1,000 ML IV SCH ×2 (00:34→10:10)
--- NOTE | 2022-10-06 02:35 | NUR ---
OBSERVED PT. PT IS WAKE AND NOT IN ANY ACUTE DISTRESS. SAFETY PRECAUTIONS TAKEN. CALL LIGHT WITHIN REACH. WILL CONTINUE TO MONITOR THE PT.
[2022-10-06 04:00] VITALS: BP 125/82
--- NOTE | 2022-10-06 05:31 | NUR ---
PT OBSERVED PT IS SLEEPING COMFORTABLY IN BED. PT IS NOT IN ANY DISTRESS. BREATHING EVEN AND UNLABORED. CALL LIGHT WITHIN REACH. SAFETY PRECAUTIONS TAKEN. WILL CONTINUE TO MONITOR THE PT.
[2022-10-06 05:57] LABS: BASOPHILS % (AUTO) 0.1 % (0.0-2.0); EOSINOPHILS % (AUTO) 0.1 % (0.0-4.0); HEMATOCRIT 34.9 % (36-52); HEMOGLOBIN 11.5 g/dL (12.0-18.0); LYMPHOCYTES # (AUTO) 0.6 K/uL (2.0-11.5); MAGNESIUM 2.1 mg/dL (1.8-2.4); MEAN CORPUSCULAR HEMOGLOBIN 26 pg (27-31); MEAN CORPUSCULAR HGB CONC 33 g/dL (33-37); MEAN CORPUSCULAR VOLUME 78.2 fL (80-94); MONOCYTES # (AUTO) 0.7 K/uL (0.8-1.0); MONOCYTES % (AUTO) 5.2 % (1.7-9.3); NEUTROPHILS # (AUTO) 11.4 K/uL (1.8-7.7); PLATELET COUNT (AUTO) 85 K/uL (140-450); RED BLOOD CELL COUNT(AUTO) 4.47 MIL/uL (4.20-6.10); RED CELL DISTRIBUTION WIDTH 16.8 % (11.6-13.7); WHITE BLOOD COUNT (AUTO) 12.7 K/uL (4.8-10.8)
[2022-10-06 06:03] LABS: CARBON DIOXIDE 33.7 mmol/L (21-32); CREATININE 0.7 mg/dL (0.6-1.3); POTASSIUM 3.7 mmol/L (3.5-5.1)
[2022-10-06 06:48] LABS: NEUTROPHILS % (AUTO) 89.6 % (42.2-75.2)
--- NOTE | 2022-10-06 07:21 | NUR ---
ENDORSED PT TO DAY SHIFT RN ADZ FOR CONTINUITY OF CARE. PT IS STABLE.
--- NOTE | 2022-10-06 09:04 | NUR ---
PATIENT HAS BEEN SCREENED AND CATEGORIZED LOW NUTRITION RISK. PATIENT WILL BE SEEN WITHIN 7 DAYS OF ADMISSION. 10/04/22-10/11/[address]
[2022-10-06] MEDS: FOLIC ACID 1 MG TAB PO SCH (10:04)
[2022-10-06] MEDS: DOCUSATE SODIUM 100 MG GELCAP PO SCH (10:04)
[2022-10-06] MEDS: PANTOPRAZOLE 40 MG INJ VIAL IVP SCH (10:05)
[2022-10-06] MEDS: MULTIVITAMIN 1 TAB PO SCH (10:05)
[2022-10-06] MEDS: THIAMINE 100 MG TAB PO SCH (10:05)
[2022-10-06 11:07] VITALS: BP 125/82
--- NOTE | 2022-10-06 11:30 | NUR ---
PATIENT DISCHARGED HOME. STABLE. INSTRUCTIONS GIVEN. VERBALIZED UNDERSTANDING. PERSONAL BELONGINGS SENT HOME WITH PATIENT.
== END 2022-10-06 11:19 | disposition home or self-care (01) | DRG 439 ==
LOC: MED 09:25 → MTU 12:18
DX: K85.20 Alcohol induced acute pancreatitis without necrosis or infection (principal); E87.1 Hypo-osmolality and hyponatremia; Z20.822 Contact with and (suspected) exposure to COVID-19; E86.0 Dehydration; K21.9 Gastro-esophageal reflux disease without esophagitis; E87.6 Hypokalemia; E78.5 Hyperlipidemia, unspecified; F10.10 Alcohol abuse, uncomplicated; Y90.9 Presence of alcohol in blood, level not specified; E83.42 Hypomagnesemia; Z82.49 Family history of ischemic heart disease and other diseases of the circulatory system; Z83.42 Family history of familial hypercholesterolemia
CPT/HCPCS: 36415; 71045; 80048; 80053; 80305; 81001; 82140; 82150; 83036; 83690; 83735; 83880; 84100; 84439; 84443; 84484; 85025; 85610; 85730; 87081; 93005; 96374; 96375; 99285; C9113; G0482; J1885; J2060; J2270; J2405; J3475; Q0092

== ENCOUNTER 2022-10-06 14:12 | Emergency (ER) | payer SELFPAY ==
[~2022-10-06] VITALS: Ht 170.2 cm; Wt 71.7 kg
[2022-10-06 14:29] VITALS: BP 135/77
--- NOTE | 2022-10-06 14:34 | NUR ---
CHASTITY. HANDED ON URINE CUP.
[2022-10-06 15:34] VITALS: BP 135/77
--- NOTE | 2022-10-06 15:34 | NUR ---
PATIENT LEFT WITHOUT BEING SEEN BY . NO FURTHER CARE PROVIDED FOR PATIENT.
--- NOTE | 2022-10-06 15:39 | NUR ---
CALLED FOR BLOOD DRAW. NO SHOW.
--- NOTE | 2022-10-06 16:25 | NUR ---
CALLED X 2. NO SHOW.
== END 2022-10-06 15:34 | disposition home or self-care (01) ==
LOC: MED 14:12
DX: R10.9 Unspecified abdominal pain (principal); Z53.21 Procedure and treatment not carried out due to patient leaving prior to being seen by health care provider

== ENCOUNTER 2023-06-26 00:45 | Emergency (ER) | payer MEDICAID ==
[~2023-06-26] VITALS: Ht 154.9 cm; Wt 70.3 kg
[2023-06-26 01:22] VITALS: BP 130/71; PULSE 96; RESP 18; TEMP 97.9; O2SAT 97
[2023-06-26] MEDS ORDERED: KETOROLAC 15 MG/ML VIAL IM ONE (02:55)
[2023-06-26] MEDS ORDERED: ONDANSETRON 4 MG TAB PO ONE (02:55)
[2023-06-26 03:13] LABS: BASOPHILS % (AUTO) 0.7 % (0.0-2.0); EOSINOPHILS # (AUTO) 0.1 K/uL (0-0.4); EOSINOPHILS % (AUTO) 1.3 % (0.0-4.0); HEMATOCRIT 39.3 % (36-52); HEMOGLOBIN 12.9 g/dL (12.0-18.0); LYMPHOCYTES # (AUTO) 1.2 K/uL (2.0-11.5); LYMPHOCYTES % (AUTO) 18.3 % (20.5-51.1); MEAN CORPUSCULAR HEMOGLOBIN 28 pg (27-31); MEAN CORPUSCULAR HGB CONC 33 g/dL (33-37); MEAN CORPUSCULAR VOLUME 84.1 fL (80-94); MONOCYTES # (AUTO) 0.8 K/uL (0.8-1.0); MONOCYTES % (AUTO) 12.4 % (1.7-9.3); NEUTROPHILS # (AUTO) 4.4 K/uL (1.8-7.7); NEUTROPHILS % (AUTO) 67.3 % (42.2-75.2); PLATELET COUNT (AUTO) 272 K/uL (140-450); RED BLOOD CELL COUNT(AUTO) 4.66 MIL/uL (4.20-6.10); RED CELL DISTRIBUTION WIDTH 16.6 % (11.6-13.7); WHITE BLOOD COUNT (AUTO) 6.5 K/uL (4.8-10.8)
[2023-06-26 03:21] LABS: INR 0.92 (0.8-1.2); PARTIAL THROMBOPLASTIN TIME 25.4 secs (22-35.6); PROTHROMBIN TIME 9.7 secs (10.8-13.4)
[2023-06-26 03:33] LABS: ALANINE AMINOTRANSFERASE 42 U/L (12-78); ALBUMIN 3.4 g/dL (3.4-5.0); ALKALINE PHOSPHATASE 89 U/L (50-136); ANION GAP 11.7 (8-16); ASPARTATE AMINOTRANSFERASE 27 U/L (15-37); CALCIUM 9.2 mg/dL (8.5-10.1); CARBON DIOXIDE 30.1 mmol/L (21-32); CHLORIDE 103 mmol/L (98-107); CREATININE 0.8 mg/dL (0.6-1.3); GFR ARICAN-AMERICAN 143 mL/min (>90); GFR NON ARICAN-AMERICAN 118 mL/min (>90); GLUCOSE 95 mg/dL (74-106); POTASSIUM 3.8 mmol/L (3.5-5.1); SODIUM SERUM 141 mmol/L (136-145); TOTAL BILIRUBIN 0.3 mg/dL (0.0-1.0); UREA NITROGEN, BLOOD 8 mg/dL (7-18)
[2023-06-26] MEDS ORDERED: NACL 0.9% 1,000 ML IV ONE (05:15)
[2023-06-26] MEDS ORDERED: METOCLOPRAMIDE 10 MG/2 ML INJ VIAL IVP ONE (05:15)
[2023-06-26 06:23] VITALS: O2SAT 97
[2023-06-26] MEDS ORDERED: ONDA-188 SL (07:24)
[2023-06-26] MEDS ORDERED: IBUP-2213 PO (07:24)
[2023-06-26 08:19] VITALS: BP 107/74; PULSE 63; RESP 11; TEMP 97.9; O2SAT 97
== END 2023-06-26 08:22 | disposition home or self-care (01) ==
LOC: MED 00:45
DX: S06.0X0A Concussion without loss of consciousness, initial encounter (principal); F07.81 Postconcussional syndrome; G44.309 Post-traumatic headache, unspecified, not intractable; R07.9 Chest pain, unspecified; R11.2 Nausea with vomiting, unspecified; Z79.899 Other long term (current) drug therapy; Y04.2XXA Assault by strike against or bumped into by another person, initial encounter; Y93.89 Activity, other specified; Y92.524 Gas station as the place of occurrence of the external cause; Y99.8 Other external cause status
CPT/HCPCS: 36415; 70450; 71250; 80053; 84484; 85025; 85610; 85730; 93005; 96361; 96372; 96374; 99285; J1885; J2765; J7030; Q0162